=== PATIENT | female | born 1965 | race Caucasian/White ===

== ENCOUNTER → 2017-06-13 | Day surgery (SDC) | payer OTHER ==
[2017-06-12 14:06] VITALS: Ht 160 cm; Wt 65.9 kg
[~2017-06-13] VITALS: Ht 160 cm; Wt 65.9 kg
[~2017-06-13] MED LIST: AMT10 PO; ATV/1 PO; CLR10 PO; DICY20TA35 PO; DIVA250T PO; ESTR1TAB2 PO; IMD/2 PO; LIDOCAINE HCL 2% 2 ML VIAL (20MG/ML) ONE; ONDA4TAB46 PO; PRLSR20 PO; PROPOFOL IV EMULSION 10 MG/ML 20 ML VIAL IV ONE; SERT-234 PO; SODIUM CHLORIDE 0.9% 500ML 500 ML IV ONE; TRAZ100T29 PO; VENL150T33 PO; VNTHFA/IN INH; ZNTT/150 PO
--- NOTE | 2017-06-13 08:59 | Endo History and Physical ---
History & Physical Date of Service: Jun 13, 2017. Chief Complaint: ABNORMAL CT SCAN Referring Physician: DR WHITE History of Present Illness 51 yo CF who presents for colonoscopy secondary to abnormal CT imaging. Past Surgical History Hx Cardiac Surgery: No Hx Internal Defibrillator: No Hx Pacemaker: No Hx Abdominal Surgery: Yes ([place] BSO) Hx of Implantable Prosthesis: No Hx Post-Op Nausea and Vomiting: No Hx Cancer Surgery: No Hx Thoracic Surgery: No Hx Orthopedic: Yes (LEFT SHOULDER ARTHROSCOPY) Hx Urinary Tract Surgery: No Family History None Social History Smoking Status: Current Some Day Smoker Hx Substance Use: No Hx Alcohol Use: No Allergies Coded Allergies: Naproxen (Unverified Allergy, Severe, HIVES, SWELLING, 06/13/17) Current Medications Reported Home Medications Medications Dose Route/Sig Max Daily Dose Days Date Category Imodium (Loperamide HCl) 2 Mg Cap 2 Mg PO QID PRN 06/12/17 Reported Claritin (Loratadine) 10 Mg Tab 10 Mg PO DAILY PRN 06/12/17 Reported Ventolin Hfa (Albuterol) 200 Puffs/26232 Mcg Aers 2-4 Puffs INH Q6H PRN 06/12/17 Reported Trazodone (Trazodone HCl) 100 Mg Tab 100-150 Mg PO BID 06/12/17 Reported Venlafaxine Hcl Er (Venlafaxine Hcl) 150 Mg Tab 1 Tab PO BID 06/12/17 Reported Bentyl (Dicyclomine Hcl) 20 Mg Tab 20 Mg PO TID PRN 06/12/17 Reported Zantac (Ranitidine HCl) 150 Mg Tab 150 Mg PO BID 06/12/17 Reported Depakote Er (Divalproex Sodium) 250 Mg Tab 1 Tab PO TID 06/12/17 Reported Zoloft (Sertraline HCl) 100 Mg Tab 100 Mg PO BID 06/12/17 Reported Estrace (Estradiol) 1 Mg Tab 1 Mg PO QAM 06/12/17 Reported Ativan (Lorazepam) 1 Mg Tab 1 Mg PO HS 06/12/17 Reported Prilosec (Omeprazole) 20 Mg Capcr 20 Mg PO QAM 06/12/17 Reported Zofran (Ondansetron HCl) 4 Mg Tab 4 Mg PO QID PRN 06/12/17 Reported Amitriptyline HCl 10 Mg Tab 10 Mg PO HS 06/12/17 Reported Vital Signs Weight (Kilograms): 65.91 Height (Feet): 5 Height (Inches): 3 Date Time Temp Pulse Resp B/P (MAP) Pulse Ox O2 Delivery O2 Flow Rate FiO2 06/13/17 08:27 37.0 60 20 106/58 (74) 96 Room Air Physical Exam General Appearance: WD/WN, no apparent distress Respiratory/Chest: Auscultation: breath sounds normal Cardiovascular: Heart Auscultation: RRR Abdomen: Bowel Sounds: normal Inspection & Palpation: soft, non-distended, no tenderness, guarding & rebound Assessment and Plan Assessment: 51 yo CF who presents for colonoscopy secondary to abnormal CT imaging. Plan: Proceed with colonoscopy.
--- NOTE | 2017-06-13 09:25 | Discharge Instructions ---
Endoscopy Patient Instructions Date / Procedure(s) Performed Jun 13, 2017. Colonoscopy Allergy Information Coded Allergies: Naproxen (Unverified Allergy, Severe, HIVES, SWELLING, 06/13/17) Discharge Date / Findings Jun 13, 2017. Crohn's Ileitis with stricture Colon polyps Internal hemorrhoids Medication Instructions 1) Start Entocort 9mg by mouth daily for 8 weeks 2) Resume all medications today as prescribed Reported Home Medications Medications Dose Route/Sig Max Daily Dose Days Date Category Imodium (Loperamide HCl) 2 Mg Cap 2 Mg PO QID PRN 06/12/17 Reported Claritin (Loratadine) 10 Mg Tab 10 Mg PO DAILY PRN 06/12/17 Reported Ventolin Hfa (Albuterol) 200 Puffs/47490 Mcg Aers 2-4 Puffs INH Q6H PRN 06/12/17 Reported Trazodone (Trazodone HCl) 100 Mg Tab 100-150 Mg PO BID 06/12/17 Reported Venlafaxine Hcl Er (Venlafaxine Hcl) 150 Mg Tab 1 Tab PO BID 06/12/17 Reported Bentyl (Dicyclomine Hcl) 20 Mg Tab 20 Mg PO TID PRN 06/12/17 Reported Zantac (Ranitidine HCl) 150 Mg Tab 150 Mg PO BID 06/12/17 Reported Depakote Er (Divalproex Sodium) 250 Mg Tab 1 Tab PO TID 06/12/17 Reported Zoloft (Sertraline HCl) 100 Mg Tab 100 Mg PO BID 06/12/17 Reported Estrace (Estradiol) 1 Mg Tab 1 Mg PO QAM 06/12/17 Reported Ativan (Lorazepam) 1 Mg Tab 1 Mg PO HS 06/12/17 Reported Prilosec (Omeprazole) 20 Mg Capcr 20 Mg PO QAM 06/12/17 Reported Zofran (Ondansetron HCl) 4 Mg Tab 4 Mg PO QID PRN 06/12/17 Reported Amitriptyline HCl 10 Mg Tab 10 Mg PO HS 06/12/17 Reported Provider Instructions Activity Restrictions - No exercising or heavy lifting for 24 hours. - Do not drink alcohol the day of the procedure. - Do not drive a car or operate machinery until the day after the procedure. - Do not make any important decisions or sign important papers in 24 hours after the procedure. Following Day: - Return to full activity which may include returning to work/school. Diet Start your diet with liquids and light foods (jello, soup, juice, toast). Then eat your usual diet if not nauseated. Treatment For Common After Affects For mild abdominal pain, bloating, or excessive gas: - Rest - Eat lightly - Lie on right side Followup in our office for pre-testing for Remicade/Thiopurine therapy Follow-Up Information Follow-up with DR WHITE as scheduled Anesthesia Information What You Should Know You have had a procedure that required some medicine to reduce anxiety and discomfort. This treatment is called moderate sedation. After receiving the treatment, you may be sleepy, but you will be able to breathe on your own. The effects of the treatment may last for several hours. Follow these instructions along with Activity/Diet recommendations noted above: * Do NOT do anything where dizziness or clumsiness would be dangerous. * Rest quietly at home today, then you can be up and about tomorrow. * Have a responsible person stay with you the rest of today. * You may have had an I.V. today. If so, you may take the dressing off later today. Recommendations Call your doctor if: * Trouble breathing * Continuous vomiting for more than 24 hours * Temperature above 101 degrees * Severe abdominal pain or bloating * Pain not relieved by pain medicine ordered * There is increased drainage or redness from any incision * A large amount of rectal bleeding greater than 2-3 tablespoons. (If you had a polyp/s removed or have hemorrhoids, a small amount of blood - from the rectum is to be expected.) * You have any unanswered questions or concerns. IN THE EVENT OF A SERIOUS EMERGENCY, GO TO THE NEAREST EMERGENCY ROOM Your discharge instructions were prepared by provider Willam Alfonso. Patient Instructions Signature Page Izzy Cruz Patient (or Guardian) Signature/Date: I have read and understand the instructions given to me by my caregivers. Caregiver/RN/Doctor Signature/Date: The above-named patient and/or guardian has received patient instructions on this date. + Original Patient Signature Page (only) stays with chart. Please make copy for patient.
--- NOTE | 2017-06-13 09:38 | GI REPORT ---
Procedure Date: 06/13/2017 8:57 AM Procedure: Colonoscopy Indications: Abnormal CT of the GI tract Medicines: Monitored Anesthesia Care Complications: No immediate complications. Estimated Blood Loss: Estimated blood loss: none. Procedure: Pre-Anesthesia Assessment: - Prior to the procedure, a History and Physical was performed, and patient medications and allergies were reviewed. The patient's tolerance of previous anesthesia was also reviewed. The risks and benefits of the procedure and the sedation options and risks were discussed with the patient. All questions were answered, and informed consent was obtained. Prior Anticoagulants: The patient has taken no previous anticoagulant or antiplatelet agents. ASA Grade Assessment: II - A patient with mild systemic disease. After reviewing the risks and benefits, the patient was deemed in satisfactory condition to undergo the procedure. After I obtained informed consent, the scope was passed under direct vision. Throughout the procedure, the patient's blood pressure, pulse, and oxygen saturations were monitored continuously. The scope was introduced through the anus and advanced to the terminal ileum. The colonoscopy was performed without difficulty. The patient tolerated the procedure well. The quality of the bowel preparation was good. The terminal ileum, ileocecal valve, appendiceal orifice, and rectum were photographed. Findings: A localized area of mucosa in the terminal ileum was moderately ulcerated. There was a mild stricture of the Terminal ileum as it entered the colon. Biopsies were taken with a cold forceps for histology. Several random biopsies were obtained with cold forceps for histology in the entire colon. Three sessile polyps were found in the sigmoid colon and in the ascending colon. The polyps were 3 to 6 mm in size. These polyps were removed with a cold snare. Resection and retrieval were complete. Non-bleeding internal hemorrhoids were found during retroflexion. The hemorrhoids were small. Impression: - Ulcerated mucosa in the terminal ileum. Biopsied. - Three 3 to 6 mm polyps in the sigmoid colon and in the ascending colon, removed with a cold snare. Resected and retrieved. - Non-bleeding internal hemorrhoids. - Several random biopsies were obtained in the entire colon. Recommendation: - Resume previous diet. - Use budesonide 9 mg PO one time per day for 8 weeks. - Repeat colonoscopy for surveillance based on pathology results. - Return to GI office as previously scheduled. Willam Alfonso DO 06/13/2017 9:37:41 AM This report has been signed electronically. Note Initiated On: 06/13/2017 8:57 AM I attest to the content of the Intraoperative Record and orders documented therein, exceptions below
--- NOTE | 2017-06-13 09:53 | Anesthesiology Progress Note ---
Anesthesia Post Op Note Date & Time Jun 13, 2017 at 09:52 Vital Signs Pain Intensity: 6 Vital Signs Past 12 Hours Date Time Temp Pulse Resp B/P (MAP) Pulse Ox O2 Delivery O2 Flow Rate FiO2 06/13/17 09:41 63 20 108/60 (76) 99 Room Air 06/13/17 09:26 63 20 92/60 (71) 99 Room Air 06/13/17 08:27 37.0 60 20 106/58 (74) 96 Room Air Notes Mental Status: alert / awake / arousable, participated in evaluation Pt Amnestic to Procedure: Yes Nausea / Vomiting: adequately controlled Pain: adequately controlled Airway Patency, RR, SpO2: stable & adequate BP & HR: stable & adequate Hydration State: stable & adequate Anesthetic Complications: no major complications apparent
[2017-06-13 10:06] VITALS: BP 104/61; PULSE 68; O2SAT 99
== END | disposition home or self-care (01) ==
LOC: C.GI 07:57
PROVIDERS: ATTEND Internal Medicine
DX: K50.00 Crohn's disease of small intestine without complications (principal); D12.2 Benign neoplasm of ascending colon; D12.5 Benign neoplasm of sigmoid colon; K64.8 Other hemorrhoids; F17.200 Nicotine dependence, unspecified, uncomplicated; Z90.710 Acquired absence of both cervix and uterus; Z90.722 Acquired absence of ovaries, bilateral; Z90.79 Acquired absence of other genital organ(s)

== ENCOUNTER → 2017-06-23 | Outpatient (CLI) | payer OTHER ==
[~2017-06-23] MED LIST changes: -LIDOCAINE HCL 2% 2 ML VIAL (20MG/ML) ONE; +OPTIRAY 320 IV PRN; -PROPOFOL IV EMULSION 10 MG/ML 20 ML VIAL IV ONE; -SODIUM CHLORIDE 0.9% 500ML 500 ML IV ONE
--- NOTE | 2017-06-23 10:00 | DIAGNOSTIC IMAGING REPORT ---
CT ABD/PELVIS IV AND ORAL CONT CLINICAL HISTORY: CROHNS DISEASE; ILEAL STENOSIS COMPARISON STUDY: None. TECHNIQUE: Following the IV administration of 93 mL of Optiray-320, CT scan of the abdomen and pelvis was performed from the lung bases to the proximal femurs. Images are reviewed in the axial, sagittal, and coronal planes. IV contrast was administered without complication. A dose lowering technique was utilized adhering to the principles of ALARA. CT DOSE: 389.21 mGy.cm FINDINGS: Lower chest: The heart is normal in size and configuration, without pericardial effusion. The lung bases and pleural spaces are clear. Liver: There is a 15 mm hypodensity adjacent the falciform ligament, likely representing focal fat. The liver is otherwise unremarkable in appearance. Gallbladder: Unremarkable. Spleen: Normal in size and attenuation. Pancreas: Unremarkable. Adrenal glands: Unremarkable. Kidneys: There is symmetric renal cortical enhancement. The kidneys are normal in size without hydronephrosis. Bowel: There is subserosal fat hypertrophy within the right colon, consistent with the clinical history of inflammatory bowel disease. There is bowel wall thickening and subserosal fat hypertrophy within the distal ileum. There are dilated distal ileal loops measuring up to 5 cm. This is likely secondary to a distal ileal stricture. There is a small bowel feces sign. There is mild hypervascularity within the mesentery. No fistulae are visualized. There is no abscess. Peritoneum: There is no intraperitoneal free air or abdominal ascites. Vasculature: The abdominal aorta is normal in course and caliber. Adenopathy: There are prominent central mesenteric lymph nodes, likely reactive. Pelvic viscera: The uterus appears surgically absent Skeletal structures: No destructive osseous lesions are seen. IMPRESSION: 1. CT evidence of active Crohn's disease with submucosal fat hypertrophy, small bowel hyperenhancement and wall thickening, a suspected distal ileal stricture, and dilated distal ileal loops measuring up to 5 cm. 2. No evidence of abscess. No fistulae are visualized. 3. Mild mesenteric adenopathy likely reactive. Electronically signed by: Kev Potter M.D. 06/23/2017 9:58 AM Dictated Date/Time: 06/23/2017 9:49 AM
== END | disposition home or self-care (01) ==
LOC: C.CTS 08:21
PROVIDERS: ATTEND Registered Nurse
DX: K50.90 Crohn's disease, unspecified, without complications (principal); K56.69 Other intestinal obstruction

== ENCOUNTER 2017-07-06 20:26 | Inpatient (IN) | payer OTHER ==
[~2017-07-06] VITALS: Ht 160 cm; Wt 62.5 kg
[~2017-07-06 20:26] MED LIST changes: -OPTIRAY 320 IV PRN
[2017-07-06] MEDS ORDERED: MoRPHine SULFATE 4 MG/ML 1 ML CARP\\VIAL IV STA (21:31)
[2017-07-06] MEDS ORDERED: RANITIDINE HCL 50 MG/100 ML D5W IV STA (21:31)
[2017-07-06] MEDS ORDERED: ONDANSETRON INJ 2 MG/ML 2 ML VIAL IV STA (21:31)
[2017-07-06] MEDS ORDERED: SODIUM CHLORIDE 0.9% 1000ML 1,000 ML IV STA ×2 (21:31)
[2017-07-06] MEDS ORDERED: OPTIRAY 320 IV PRN (21:45)
[2017-07-06 21:55] LABS: BASO % 0.1 %; BASO ABS # 0.01 K/uL (0-0.2); COMPLETE YES; HEMATOCRIT 38.2 % (37-47); IG% 0.5 %; LYMPH % 19.8 %; LYMPH ABS # 2.04 K/uL (1.2-3.4); MEAN CELL VOLUME 95.3 fL (80-100); MEAN CORPUSCULAR HEMOGLOBIN 31.9 pg (25-34); MEAN CORPUSCULAR HGB CONC 33.5 g/dl (32-36); MEAN PLATELET VOLUME 10.8 fL (7.4-10.4); NEUT % 64.6 %; PLATELET COUNT 309 K/uL (130-400); RED BLOOD COUNT 4.01 M/uL (4.2-5.4)
[2017-07-06 22:07] LABS: BUN/CREATININE RATIO 27.9 (10-20); C-REACTIVE PROTEIN 15.5 mg/dl (0-0.29); CALCIUM 9.4 mg/dl (8.5-10.1); CREATININE 0.53 mg/dl (0.60-1.20); MAGNESIUM 1.5 mg/dl (1.8-2.4); POTASSIUM 3.6 mmol/L (3.5-5.1)
[2017-07-06 22:08] LABS: URINE APPEARANCE CLOUDY (CLEAR); URINE BILIRUBIN NEG (NEG); URINE COLOR DK YELLOW; URINE EPITHELIAL CELL AUTO >30 /lpf (0-5); URINE NITRITE NEG (NEG); URINE PH 5.5 (4.5-7.5); URINE SPECIFIC GRAVITY 1.035 (1.000-1.030); UROBILINOGEN NEG (NEG); ZZUR CULT IF INDIC CLEAN CATCH YES
[2017-07-06 22:10] LABS: ALB/GLOB RATIO 0.7 (0.9-2)
[2017-07-06 22:11] LABS: MANUAL MICROSCOPIC REQUIRED? NO; REVIEW REQ? YES
[2017-07-06] MEDS ORDERED: MAGNESIUM SULFATE 1GM / D5W 1 GM BAG IV STA (22:11)
[2017-07-06 22:32] LABS: URINE MUCUS PRESENT (NONE PRSENT)
[2017-07-06] MEDS ORDERED: HYDROmorphone INJ 1 MG/ML SYR IV STA (22:42)
--- NOTE | 2017-07-06 23:28 | DIAGNOSTIC IMAGING REPORT ---
ABD/PELVIS IV CONTRAST ONLY CLINICAL HISTORY: 51 years-old Female presenting with severe abd pain, crohns. TECHNIQUE: Multidetector CT of the abdomen and pelvis was performed after the administration of intravenous contrast. IV contrast: 91 mL of Optiray 320. A dose lowering technique was used consistent with the principles of ALARA (as low as reasonably achievable). COMPARISON: 06/23/2017. CT DOSE (mGy.cm): The estimated cumulative dose is 279.29 mGy.cm. 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 Lung bases: Lung bases clear. No pericardial or pleural effusion. Liver: Normal morphology. Perfusional variation noted along the fissure for the ligamentum teres. No liver lesion. Patent hepatic vasculature. Biliary: No intrahepatic or extrahepatic biliary ductal dilatation. Normal gallbladder. Pancreas: Normal. Mild pancreatic ductal prominence. Spleen: Normal. Adrenal glands: Normal. Kidneys and ureters: Normal. No hydronephrosis. Bladder: Incompletely evaluated secondary to underdistention. Pelvic organs: Uterus surgically absent. Bowel: Colonic wall thickening with intramural fat deposition in the right colon. Wall thickening and intramural fat deposition also noted in the terminal ileum. Wall thickening extends along the terminal ileum proximally to the distal ileum for an extended segment (at least 30 cm) the distribution is unchanged from prior. The degree of wall thickening has increased, which now measures up to 7 mm. The affected small bowel demonstrates relative luminal dilatation in comparison to the narrow lumen terminal ileum. Mucosal and serosal hyperenhancement evident with prominence of the basal right and minimal mesenteric infiltration. Prominent enhancing mesenteric lymph nodes. More proximal small bowel is unaffected. No evidence of perienteric sinus track or phlegmonous change. No bowel obstruction or distention. Peritoneal cavity: No free fluid or intraperitoneal gas. Vasculature: Atherosclerosis of the normal caliber abdominal aorta. IVC patent. Lymph nodes: Prominent mesenteric lymph nodes slightly increased in size from prior. Abdominal wall: Normal. Musculoskeletal: Normal. IMPRESSION: 1. Slight interval increase in bowel wall thickening of the affected long segment of distal ileum with associated increased as enteric infiltration and slight increased size of mesenteric lymph nodes. This is concerning for worsening of active disease. Relative dilatation of the affected bowel in comparison to the terminal ileum suggests an element of stricturing disease. Chronic inflammatory changes of the terminal ileum and right colon. No evidence of penetrating disease. Electronically signed by: Rosas Steven M.D. 07/06/2017 11:27 PM Dictated Date/Time: 07/06/2017 11:16 PM
[2017-07-07] MEDS ORDERED: HYDROmorphone INJ 1 MG/ML SYR IV STA (00:11)
[2017-07-07] MEDS ORDERED: METHYLPREDNISOLONE IV 20 MG in SYRINGE 0 ML IV STA (00:11)
--- NOTE | 2017-07-07 00:40 | History and Physical ---
History & Physical Date & Time of Service: Jul 07, 2017 at 00:36 Chief Complaint: Severe Adb Pain, Nausea, Burning Sensation Primary Care Physician: Kyung Parker M.D. History of Present Illness Source: patient This is 51 yo F with medial hx of Crohn's colitis , depression , anxiety disorder presents with complain of worsening of abdominal pain/cramps , ongoing diarrhea , nausea /vomiting CT abdomen /pelvis shows active inflammation at terminal ileum pt is afebrile , with normal white count , no evidence of sepsis given IV Solu Medrol in Ed will be admitted to Medical floor for IV steroid for Crohn's colitis flare and ongoing supportive care for GI symptoms with bowel rest , IVF and pain meds GI team consulted -pt is known to Dr Alfonso Social History Smoking Status: Never Smoker Housing status: lives with family Allergies Coded Allergies: Naproxen (Verified Allergy, Severe, HIVES, SWELLING, 06/13/17) Home Medications Scheduled Amitriptyline HCl (Amitriptyline HCl), 10 MG PO HS Divalproex Sodium (Depakote Er), 250 MG PO TID Estradiol (Estrace), 1 MG PO QAM Lorazepam (Ativan), 1 MG PO HS Omeprazole (Prilosec), 20 MG PO QAM Ranitidine (Zantac), 150 MG PO BID Sertraline (Zoloft), 100 MG PO BID Trazodone Hcl (Trazodone), 100-150 MG PO BID Venlafaxine Hcl (Venlafaxine Hcl Er), 150 MG PO BID Scheduled PRN Albuterol Hfa (Ventolin Hfa), 2-4 PUFFS INH Q6H PRN for Shortness of Breath Loperamide Hcl (Imodium), 2 MG PO QID PRN for Diarrhea Loratadine (Claritin), 10 MG PO DAILY PRN for Allergy Symptoms Review of Systems Constitutional: + chills, + weakness, + fatigue Abdomen: + pain, + nausea, + vomiting, + diarrhea Musculoskeletal: + joint pain Neurologic: + weakness, + numbness/tingling Psychiatric: + depression symptoms, + anxiety, + insomnia Endocrine: + fatigue Physical Exam Vital Signs Date Time Temp Pulse Resp B/P (MAP) Pulse Ox O2 Delivery O2 Flow Rate FiO2 07/06/17 22:46 94 125/78 100 Room Air 07/06/17 20:28 36.6 101 18 156/112 94 Room Air General Appearance: no apparent distress Head: normocephalic, atraumatic Eyes: normal inspection, PERRL, EOMI, sclerae normal Neck: supple, no adenopathy, thyroid normal, no JVD, no carotid bruits, trachea midline Respiratory/Chest: chest non-tender, lungs clear, normal breath sounds, no respiratory distress, no accessory muscle use Cardiovascular: regular rate, rhythm, no edema, no gallop, no JVD, no murmur, normal peripheral pulses Abdomen/GI: soft, + tenderness (in rt lower quadrant , no rebound , no gurading ) Extremities/Musculoskelatal: normal inspection, no calf tenderness, normal capillary refill, no pedal edema, normal range of motion Neurologic/Psych: no motor/sensory deficits, alert, normal mood/affect, oriented x 3 Diagnostics Laboratory Results Results Past 24 Hours Test 07/06/17 21:30 07/06/17 21:38 07/06/17 22:00 Range/Units White Blood Count 10.30 4.8-10.8 K/uL Red Blood Count 4.01 4.2-5.4 M/uL Hemoglobin 12.8 12.0-16.0 g/dL Hematocrit 38.2 37-47 % Mean Corpuscular Volume 95.3 80-100 fL Mean Corpuscular Hemoglobin 31.9 25-34 pg Mean Corpuscular Hemoglobin Concent 33.5 32-36 g/dl Platelet Count 309 130-400 K/uL Mean Platelet Volume 10.8 7.4-10.4 fL Neutrophils (%) (Auto) 64.6 % Lymphocytes (%) (Auto) 19.8 % Monocytes (%) (Auto) 15.0 % Eosinophils (%) (Auto) 0.0 % Basophils (%) (Auto) 0.1 % Neutrophils # (Auto) 6.65 1.4-6.5 K/uL Lymphocytes # (Auto) 2.04 1.2-3.4 K/uL Monocytes # (Auto) 1.55 0.11-0.59 K/uL Eosinophils # (Auto) 0.00 0-0.5 K/uL Basophils # (Auto) 0.01 0-0.2 K/uL RDW Standard Deviation 49.3 36.4-46.3 fL RDW Coefficient of Variation 14.1 11.5-14.5 % Immature Granulocyte % (Auto) 0.5 % Immature Granulocyte # (Auto) 0.05 0.00-0.02 K/uL Erythrocyte Sedimentation Rate 37 0-21 mm/hr Sodium Level 134 136-145 mmol/L Potassium Level 3.6 3.5-5.1 mmol/L Chloride Level 101 98-107 mmol/L Carbon Dioxide Level 27 21-32 mmol/L Anion Gap 6.0 3-11 mmol/L Blood Urea Nitrogen 15 7-18 mg/dl Creatinine 0.53 0.60-1.20 mg/dl Est Creatinine Clear Calc Drug Dose 102.7 ml/min Estimated GFR () 126.5 Estimated GFR (Non- 109.2 BUN/Creatinine Ratio 27.9 10-20 Random Glucose 90 70-99 mg/dl Calcium Level 9.4 8.5-10.1 mg/dl Magnesium Level 1.5 1.8-2.4 mg/dl Total Bilirubin 0.3 0.2-1 mg/dl Aspartate Amino Transf (AST/SGOT) 11 15-37 U/L Alanine Aminotransferase (ALT/SGPT) 12 12-78 U/L Alkaline Phosphatase 122 45-117 U/L C-Reactive Protein 15.50 0-0.29 mg/dl Total Protein 6.8 6.4-8.2 gm/dl Albumin 2.8 3.4-5.0 gm/dl Globulin 4.0 2.5-4.0 gm/dl Albumin/Globulin Ratio 0.7 0.9-2 Lipase 48 73-393 U/L Bedside Lactic Acid Venous 1.13 0.90-1.70 mmol/L Urine Color DK YELLOW Urine Appearance CLOUDY CLEAR Urine pH 5.5 4.5-7.5 Urine Specific [place] 1.035 1.000-1.030 Urine Protein NEG NEG Urine Glucose (UA) NEG NEG Urine Ketones 1+ NEG Urine Occult Blood 1+ NEG Urine Nitrite NEG NEG Urine Bilirubin NEG NEG Urine Urobilinogen NEG NEG Urine Leukocyte Esterase NEG NEG Urine WBC (Auto) 1-5 0-5 /hpf Urine RBC (Auto) 0-4 0-4 /hpf Urine Hyaline Casts (Auto) 1-5 0-5 /lpf Urine Epithelial Cells (Auto) >30 0-5 /lpf Urine Bacteria (Auto) 1+ NEG Urine Crystals CALCIUM OXALATE NONE PRSENT Urine Pathogenic Casts 0 /lpf Urine Mucus PRESENT NONE PRSENT Microbiology Results 07/06/17 Urine Culture, Received Pending Diagnostic Radiology CT ABDOMEN /PELVIS: IMPRESSION: 1. Slight interval increase in bowel wall thickening of the affected long segment of distal ileum with associated increased as enteric infiltration and slight increased size of mesenteric lymph nodes. This is concerning for worsening of active disease. Relative dilatation of the affected bowel in comparison to the terminal ileum suggests an element of stricturing disease. Chronic inflammatory changes of the terminal ileum and right colon. No evidence of penetrating disease. EKG Normal sinus rhythm Nonspecific ST abnormality Abnormal ECG No previous ECGs available Impression Assessment and Plan CROHN'S COLITIS FLARE : known hx of Crohn's disease follows with GI Dr Alfonso Recent colonoscopy on 06/13/[address] Alfonso showed localized area of moderately ulcerated mucosa in terminal ileum with mild stricture of terminal ileum as it enters the colon Pathology of specimen showed : flattening of villi and altered architecture /minimal to mild acute inflammation noted, no granulomatous inflammation noted -findings consistent with Crohn's disease pt was recommended to take Budesonide 9 gm daily for 8 weeks pt is a poor historian with questionable compliance to medication continued to have ongoing abdominal pain and loose diarrhea had CT abdomen /pelvis done a week back on 06/23/17 shows active Crohn's disease with submucosal fat hypertrophy, suspected distal ileal stricture past 2 days her abdominal pain has been severe , unable to keep any food down due to nausea and vomiting had ongoing diarrhea /no blood in stool CT abdomen /pelvis shows progression of her Crohn's colitis pt will be admitted to Medical floor , no evidence of infection or sepsis -no indication for Abx therapy started on IV Solu -Medrol bowel rest -IVF , cont pain control GI eval requested HYPONATREMIA /LOW MG : Due to GI loss ordered for IVF with NSS , mg replacement ordered follow lytes DEPRESSION : cont Elavil, Zoloft EKG Ordered as pt is on number antidepressants /antipsychotic meds which can cause prolong Qtc on Depakote for mood disorder ? ordered to check level CHRONIC INSOMNIA : Cont Trazodone TOBACCO ABUSE DISORDER : used smoke 1-2 pk a day , quit on March since diagnosis of IBD FULL CODE DVT PROPHYLAXIS : scd and teds ambulate pharmacological anticoagulation avoided due to active colitis /risk of GI bleed DISPOSITION : expected to be discharged home when medically stable Medicine follow up with Dr Piero Parker GI follow up with Dr Willam Alfonso Level of Care Med/Surg Resuscitation Status FULL RESUSCITATION VTE Prophylaxis Given or contraindicated: Hannah Miranda, SCD's Additional Copies To Kyung Parker M.D., Willam Elias, Richard.O.
[2017-07-07 01:30] VITALS: BP 94/65; PULSE 75; TEMP 36.6; O2SAT 96; Ht 160 cm; Wt 62.5 kg
[2017-07-07] MEDS ORDERED: LORATADINE 10 MG TAB PO PRN (01:30)
[2017-07-07] MEDS ORDERED: LOPERAMIDE HCL 2 MG CAP PO PRN (01:30)
[2017-07-07] MEDS ORDERED: HYDROmorphone INJ 1 MG/ML SYR IV PRN (01:30)
[2017-07-07] MEDS ORDERED: HYDROmorphone INJ 2 MG/ML SYR/VIAL IV PRN (01:30)
[2017-07-07] MEDS ORDERED: ALBUTEROL HFA 8 GM INHALER INH PRN (01:30)
[2017-07-07] MEDS ORDERED: MAGNESIUM SULFATE 1GM / D5W 1 GM in PREMIXED IN D5W 100 ML IV STA (01:52)
[2017-07-07] MEDS: SODIUM CHLORIDE 0.9% 1000ML 1,000 ML IV SCH ×3 (02:12→20:38)
--- NOTE | 2017-07-07 05:54 | EMERGENCY ROOM VISIT NOTE ---
History First contact with patient: 21:20 Chief Complaint: ABDOMINAL PAIN Stated Complaint: ABDOMINAL PAIN, CROHNS COLITIS Nursing Triage Summary: Pt c/o severe right sided abdominal pain. Pt states it is a crohns flare up. Goes into back and side. Pt states it has been going on for four months. Severe pain starting yesterday, c/o N/V/D. Hasn't been able to eat/drink. History of Present Illness The patient is a 51 year old female who presents to the Emergency Room with complaints of severe increasing lower abdominal pain for the past 2 months that got much worse over the past few days. Patient complains of nausea and vomiting and occasional diarrhea. Patient has Crohn's. This is diagnosed 4 months ago. She follows with Dr. Alfonso. Patient discussed up as severe, 9 out of 10 throughout the lower abdomen. Nothing makes it better or worse. Patient denies fever, chills, cough, congestion, chest pain, dyspnea, back pain, urinary symptoms. She is on low-dose prednisone. Review of Systems See HPI for pertinent positives & negatives. A total of 10 systems reviewed and were otherwise negative. Past Medical/Surgical History Medical Problems: (1) Abdominal pain (2) Crohn's colitis Social History Smoking Status: Never Smoker Smokeless Tobacco Use: No Drug Use: none Current/Historical Medications Scheduled Amitriptyline HCl (Amitriptyline HCl), 10 MG PO HS Divalproex Sodium (Depakote Er), 250 MG PO TID Estradiol (Estrace), 1 MG PO QAM Lorazepam (Ativan), 1 MG PO HS Omeprazole (Prilosec), 20 MG PO QAM Ranitidine (Zantac), 150 MG PO BID Sertraline (Zoloft), 100 MG PO BID Trazodone Hcl (Trazodone), 100-150 MG PO BID Venlafaxine Hcl (Venlafaxine Hcl Er), 150 MG PO BID Scheduled PRN Albuterol Hfa (Ventolin Hfa), 2-4 PUFFS INH Q6H PRN for Shortness of Breath Loperamide Hcl (Imodium), 2 MG PO QID PRN for Diarrhea Loratadine (Claritin), 10 MG PO DAILY PRN for Allergy Symptoms Allergies Coded Allergies: Naproxen (Verified Allergy, Severe, HIVES, SWELLING, 06/13/17) Physical Exam Vital Signs Date Time Temp Pulse Resp B/P (MAP) Pulse Ox O2 Delivery O2 Flow Rate FiO2 07/06/17 22:46 94 125/78 100 Room Air 07/06/17 20:28 36.6 101 18 156/112 94 Room Air Pain Rating (0-10): 0 Physical Exam VITALS: Vitals are noted on the nurse's note and reviewed by myself. Vital signs stable. GENERAL: White female, in no acute distress, nondiaphoretic, well-developed well -nourished. SKIN: The skin was without rashes, erythema, edema, or bruising. There is no tenting of the skin. Capillary reflex less than 2 seconds. HEAD: Normocephalic atraumatic. EARS: External auditory canals clear, tympanic membranes pearly nicholas without erythema or effusion bilaterally. EYES: Pupils equal round and reactive to light and accommodation. Conjunctivae without injection, sclerae without icterus. Extraocular movements intact. NOSE: Patent, turbinates without inflammation or discharge. MOUTH: Mucous membranes mildly dry. Pharynx without erythema or exudate. Uvula midline. Airway patent. Tongue does not deviate. NECK: Supple without nuchal rigidity. No lymphadenopathy. No thyromegaly. Cervical spine is nontender. No JVD. HEART: Regular rate and rhythm LUNGS: Clear to auscultation bilaterally without wheezes, rales or rhonchi. No dullness to percussion. No retractions or accessory muscle use. ABDOMEN: Positive bowel sounds x 4. Normal tympanic percussion. Soft, tender to palpation lower abdomen, no CVA tenderness, without masses or organomegaly. Block sign negative. No guarding or rebound tenderness. MUSCULOSKELETAL: No muscle atrophy, erythema, or edema noted. NEURO: Patient was alert and oriented to person place and time. Normal sensation to light and sharp touch. No focal neurological deficits. Medical Decision & Procedures Laboratory Results Test 07/06/17 21:30 07/06/17 21:38 07/06/17 22:00 RDW Standard Deviation 49.3 fL (36.4-46.3) RDW Coefficient of Variation 14.1 % (11.5-14.5) White Blood Count 10.30 K/uL (4.8-10.8) Red Blood Count 4.01 M/uL (4.2-5.4) Hemoglobin 12.8 g/dL (12.0-16.0) Hematocrit 38.2 % (37-47) Mean Corpuscular Volume 95.3 fL (80-100) Mean Corpuscular Hemoglobin 31.9 pg (25-34) Mean Corpuscular Hemoglobin Concent 33.5 g/dl (32-36) Platelet Count 309 K/uL (130-400) Mean Platelet Volume 10.8 fL (7.4-10.4) Neutrophils (%) (Auto) 64.6 % Lymphocytes (%) (Auto) 19.8 % Monocytes (%) (Auto) 15.0 % Eosinophils (%) (Auto) 0.0 % Basophils (%) (Auto) 0.1 % Neutrophils # (Auto) 6.65 K/uL (1.4-6.5) Lymphocytes # (Auto) 2.04 K/uL (1.2-3.4) Monocytes # (Auto) 1.55 K/uL (0.11-0.59) Eosinophils # (Auto) 0.00 K/uL (0-0.5) Basophils # (Auto) 0.01 K/uL (0-0.2) Immature Granulocyte % (Auto) 0.5 % Immature Granulocyte # (Auto) 0.05 K/uL (0.00-0.02) Erythrocyte Sedimentation Rate 37 mm/hr (0-21) Est Creatinine Clear Calc Drug Dose 102.7 ml/min Total Bilirubin 0.3 mg/dl (0.2-1) Aspartate Amino Transf (AST/SGOT) 11 U/L (15-37) Alanine Aminotransferase (ALT/SGPT) 12 U/L (12-78) Alkaline Phosphatase 122 U/L (45-117) C-Reactive Protein 15.50 mg/dl (0-0.29) Total Protein 6.8 gm/dl (6.4-8.2) Albumin 2.8 gm/dl (3.4-5.0) Globulin 4.0 gm/dl (2.5-4.0) Albumin/Globulin Ratio 0.7 (0.9-2) Lipase 48 U/L (73-393) Bedside Lactic Acid Venous 1.13 mmol/L (0.90-1.70) Urine Color DK YELLOW Urine Appearance CLOUDY (CLEAR) Urine pH 5.5 (4.5-7.5) Urine Specific [place] 1.035 (1.000-1.030) Urine Protein NEG (NEG) Urine Glucose (UA) NEG (NEG) Urine Ketones 1+ (NEG) Urine Occult Blood 1+ (NEG) Urine Nitrite NEG (NEG) Urine Bilirubin NEG (NEG) Urine Urobilinogen NEG (NEG) Urine Leukocyte Esterase NEG (NEG) Urine WBC (Auto) 1-5 /hpf (0-5) Urine RBC (Auto) 0-4 /hpf (0-4) Urine Hyaline Casts (Auto) 1-5 /lpf (0-5) Urine Epithelial Cells (Auto) >30 /lpf (0-5) Urine Bacteria (Auto) 1+ (NEG) Urine Crystals CALCIUM OXALATE (NONE Urine Pathogenic Casts /lpf (0) Urine Mucus PRESENT (NONE PRSENT) Medications Administered Medications (Trade) Dose Ordered Sig/Ida Route Start Time Stop Time Status Last Admin Dose Admin Sodium Chloride 1,000 ml @ 999 mls/hr Q1H1M STAT IV 07/06/17 21:31 07/06/17 22:31 DC 07/06/17 21:55 999 MLS/HR Sodium Chloride 1,000 ml @ 125 mls/hr Q8H STAT IV 07/06/17 21:31 07/07/17 01:52 DC 07/06/17 21:55 125 MLS/HR Ondansetron HCl (Zofran Inj) 4 mg NOW STAT IV 07/06/17 21:31 07/06/17 21:33 DC 07/06/17 21:54 4 MG Ranitidine HCl (zANTac IV) 50 mg NOW STAT IV 07/06/17 21:31 07/06/17 21:33 DC 07/06/17 21:54 50 MG Morphine Sulfate (MoRPHine SULFATE INJ) 4 mg NOW STAT IV 07/06/17 21:31 07/06/17 21:33 DC 07/06/17 21:54 4 MG Magnesium Sulfate (Magnesium Sulfate) 2 gm NOW STAT IV 07/06/17 22:11 07/06/17 22:12 DC 07/06/17 22:49 2 GM Hydromorphone HCl (Dilaudid Inj) 1 mg NOW STAT IV 07/06/17 22:42 07/06/17 22:43 DC 07/06/17 22:47 1 MG Hydromorphone HCl (Dilaudid Inj) 1 mg NOW STAT IV 07/07/17 00:11 07/07/17 00:13 DC 07/07/17 00:55 1 MG Methylprednisolone Sodium Succinate 20 mg/Syringe 0.32 ml @ 1.5 mls/min NOW STAT IV 07/07/17 00:11 07/07/17 00:13 DC 07/07/17 01:06 1.5 MLS/MIN ED Course Prior records/ancillary studies reviewed. Triage Nursing notes reviewed. The patient's history was concerning for abdominal pain. Differential diagnosis: Etiologies such as Crohn's exacerbation, appendicitis, diverticulitis, PUD, biliary pathology, UTI, pancreatitis, obstruction, mesenteric ischemia, aortic pathology, infections, inflammatory bowel disease, renal colic, as well as others were entertained. Physical examination findings: As above. ER treatment provided: Morphine, Dilaudid, Zofran, Solu Medrol, IV fluids On reassessment the patient felt better. Diagnostics interpreted by me: The labs revealed no leukocytosis. Elevated inflammatory markers. Low magnesium Imaging studies: CT scan concerning for worsening Crohn's disease per radiology Consultation: A consultation was placed with the GI, Dr. Negrete. The case was discussed and diagnostics were reviewed. He recommends steroids and medical admission I consulted medicine and Dr. Fernandes will evaluate the patient for possible admission. Exam and history seem consistent with Crohn's exacerbation. Patient was given multiple rounds of pain meds and still in discomfort. She will be evaluated by medicine. She was started on steroids.. By the evaluation outlined above emergent etiologies such as appendicitis, diverticulitis, PUD, biliary pathology, UTI, pancreatitis, obstruction, mesenteric ischemia, aortic pathology, renal colic, as well as others were deemed relatively unlikely. The pt informed about the findings as listed above. All questions were answered and pleased with the treatment. Case reviewed by attending Medical Decision as above Impression Primary Impression: Exacerbation of Crohn's disease Departure Information Dispostion Being Evaluated By Hospitalist Condition GOOD Referrals Kyung Parker M.D. (PCP) Patient Instructions My [facility] Problem Qualifiers Primary Impression: Exacerbation of Crohn's disease Digestive disease complication type: without complication Qualified Codes: K50.90 - Crohn's disease, unspecified, without complications
[2017-07-07 07:19] LABS: CALCIUM 8.2 mg/dl (8.5-10.1); CREATININE 0.4 mg/dl (0.60-1.20); MAGNESIUM 2.4 mg/dl (1.8-2.4); POTASSIUM 3.9 mmol/L (3.5-5.1)
[2017-07-07 07:28] VITALS: BP 133/67; PULSE 76; TEMP 36.9; O2SAT 97
[2017-07-07] MEDS: PANTOprazole SOD 40 MG TAB PO SCH (07:41)
[2017-07-07] MEDS: DIVALPROEX 250 MG EXTENDED REL TAB PO SCH ×3 (07:41→20:37)
[2017-07-07 07:42] LABS: HEMATOCRIT 35.6 % (37-47); MEAN CELL VOLUME 94.2 fL (80-100); MEAN PLATELET VOLUME 11.2 fL (7.4-10.4); PLATELET COUNT 193 K/uL (130-400); RED BLOOD COUNT 3.78 M/uL (4.2-5.4); WHITE BLOOD COUNT 8.18 K/uL (4.8-10.8)
[2017-07-07] MEDS: RANITIDINE HCL 150 MG TAB PO SCH ×2 (07:42→20:37)
[2017-07-07] MEDS: VENLAFAXINE HCL XR 150 MG CAPXR PO SCH ×2 (07:42→20:37)
[2017-07-07] MEDS: TRAZODONE HCL 100 MG TAB PO SCH ×2 (07:42→20:37)
[2017-07-07] MEDS: SERTRALINE HCL 100 MG TAB PO SCH ×2 (07:42→20:37)
[2017-07-07] MEDS ORDERED: METHYLPREDNISOLONE IV 40 MG in SYRINGE 0 ML IV SCH (08:00)
[2017-07-07] MEDS ORDERED: POLYETHYLENE (MIRALAX) 17 GM PACK PO ONE (09:23)
--- NOTE | 2017-07-07 10:16 | Gastrointestinal Consultation ---
Gastrointestinal Consultation Date of Consultation: Jul 07, 2017 Attending Physician: Tyree Brooks Consulting Physician: Evelyn Corey Reason for Consultation: Crohn's disease History of Present Illness Patient is a 51 year old female w newly diagnosed Crohn's disease who presented to ED w c/o R sided abd pain. Hx of Crohn's diagnosed via colonoscopy done by Dr. Alfonso on 06/13/17 which showed ulceration and stricturing around terminal ileum area, TA and hyperplastic polyps, bx consistent w Crohn's ileitis. She was started on Entecort 9mg daily. Had been also using Tylenol and Dicyclomine for abd pain symptoms which pt reports not much relief. In last few days she has had issues w n/v, + chronic constipation, last BM 2-3 days ago. No signs of rectal bleeding. She denies any sick contact, fever, chills. Pt's daughter also has Crohn's disease currently on Remicade. Pt's labs didn't show any signs of leukocytosis, anemia. Kidney and liver function grossly normal. CRP up at 15. CT abd/pelvis: 1. Slight interval increase in bowel wall thickening of the affected long segment of distal ileum with associated increased as enteric infiltration and slight increased size of mesenteric lymph nodes. This is concerning for worsening of active disease. Relative dilatation of the affected bowel in comparison to the terminal ileum suggests an element of stricturing disease. Chronic inflammatory changes of the terminal ileum and right colon. No evidence of penetrating disease. In my discussion w America LU from [facility] who manages pt in outpt setting , there's already plans for pt to start Remicade w insurance prior auth pending. She also had been referred to [facility] for her stricturing disease. Past Medical/Surgical History Medical Problems: (1) Exacerbation of Crohn's disease Status: Acute Past Medical History: Depression/Anxiety Crohn's GERD Past Surgical History: Hysterectomy Family History Dght: Crohn's Social History Smoking Status: Never Smoker Alcohol Use: none Drug Use: none Allergies Coded Allergies: Naproxen (Verified Allergy, Severe, HIVES, SWELLING, 06/13/17) Current Medications Home Meds and Scripts Medications Dose Route/Sig Max Daily Dose Days Date Category Imodium (Loperamide HCl) 2 Mg Cap 2 Mg PO QID PRN 06/12/17 Reported Claritin (Loratadine) 10 Mg Tab 10 Mg PO DAILY PRN 06/12/17 Reported Ventolin Hfa (Albuterol) 200 Puffs/73818 Mcg Aers 2-4 Puffs INH Q6H PRN 06/12/17 Reported Trazodone (Trazodone HCl) 100 Mg Tab 100-150 Mg PO BID 06/12/17 Reported Venlafaxine Hcl Er (Venlafaxine Hcl) 150 Mg Tab 150 Mg PO BID 06/12/17 Reported Zantac (Ranitidine HCl) 150 Mg Tab 150 Mg PO BID 06/12/17 Reported Depakote Er (Divalproex Sodium) 250 Mg Tab 250 Mg PO TID 06/12/17 Reported Zoloft (Sertraline HCl) 100 Mg Tab 100 Mg PO BID 06/12/17 Reported Estrace (Estradiol) 1 Mg Tab 1 Mg PO QAM 06/12/17 Reported Ativan (Lorazepam) 1 Mg Tab 1 Mg PO HS 06/12/17 Reported Prilosec (Omeprazole) 20 Mg Capcr 20 Mg PO QAM 06/12/17 Reported Amitriptyline HCl 10 Mg Tab 10 Mg PO HS 06/12/17 Reported Review of Systems Constitutional: No fever, No chills Respiratory: No cough, No shortness of breath Cardiac: No chest pain Abdomen: + see HPI, + pain, + nausea, + vomiting, + constipation, No GI bleeding Skin: + rash (R sided abd area) Physical Exam Date Time Temp Pulse Resp B/P (MAP) Pulse Ox O2 Delivery O2 Flow Rate FiO2 07/07/17 08:00 Room Air 07/07/17 07:28 36.9 76 20 133/67 (89) 97 Room Air 07/07/17 01:36 83 16 100/66 95 07/07/17 01:30 36.6 75 16 94/65 96 Room Air 07/07/17 01:30 36.6 75 16 94/65 (75) 96 Room Air 07/07/17 00:45 83 16 106/68 97 Room Air 07/06/17 22:46 94 125/78 100 Room Air 07/06/17 20:28 36.6 101 18 156/112 94 Room Air General Appearance: WD/WN, no apparent distress, + thin Eyes: normal inspection, PERRL, EOMI Neck: supple, no JVD, trachea midline Respiratory/Chest: normal breath sounds, no respiratory distress, no accessory muscle use Cardiovascular: regular rate, rhythm, no gallop, no murmur Abdomen: normal bowel sounds, soft, + tenderness (along R abd side) Extremities: normal inspection, no pedal edema, no calf tenderness Neurologic/Psych: alert, normal mood/affect, oriented x 3 Skin: normal color, no jaundice, + rash (RLQ, RUQ abd areas) Laboratory Results Last 24 Hours Test 07/06/17 21:30 07/06/17 21:38 07/06/17 22:00 07/07/17 06:09 White Blood Count 10.30 K/uL 8.18 K/uL Red Blood Count 4.01 M/uL 3.78 M/uL Hemoglobin 12.8 g/dL 12.3 g/dL Hematocrit 38.2 % 35.6 % Mean Corpuscular Volume 95.3 fL 94.2 fL Mean Corpuscular Hemoglobin 31.9 pg 32.0 pg Mean Corpuscular Hemoglobin Concent 33.5 g/dl 34.0 g/dl Platelet Count 309 K/uL 193 K/uL Mean Platelet Volume 10.8 fL 11.2 fL Neutrophils (%) (Auto) 64.6 % Lymphocytes (%) (Auto) 19.8 % Monocytes (%) (Auto) 15.0 % Eosinophils (%) (Auto) 0.0 % Basophils (%) (Auto) 0.1 % Neutrophils # (Auto) 6.65 K/uL Lymphocytes # (Auto) 2.04 K/uL Monocytes # (Auto) 1.55 K/uL Eosinophils # (Auto) 0.00 K/uL Basophils # (Auto) 0.01 K/uL RDW Standard Deviation 49.3 fL 48.9 fL RDW Coefficient of Variation 14.1 % 14.2 % Immature Granulocyte % (Auto) 0.5 % Immature Granulocyte # (Auto) 0.05 K/uL Erythrocyte Sedimentation Rate 37 mm/hr Sodium Level 134 mmol/L 135 mmol/L Potassium Level 3.6 mmol/L 3.9 mmol/L Chloride Level 101 mmol/L 103 mmol/L Carbon Dioxide Level 27 mmol/L 24 mmol/L Anion Gap 6.0 mmol/L 8.0 mmol/L Blood Urea Nitrogen 15 mg/dl 10 mg/dl Creatinine 0.53 mg/dl 0.40 mg/dl Est Creatinine Clear Calc Drug Dose 102.7 ml/min 136.0 ml/min Estimated GFR () 126.5 138.8 Estimated GFR (Non- 109.2 119.8 BUN/Creatinine Ratio 27.9 24.0 Random Glucose 90 mg/dl 114 mg/dl Calcium Level 9.4 mg/dl 8.2 mg/dl Magnesium Level 1.5 mg/dl 2.4 mg/dl Total Bilirubin 0.3 mg/dl Aspartate Amino Transf (AST/SGOT) 11 U/L Alanine Aminotransferase (ALT/SGPT) 12 U/L Alkaline Phosphatase 122 U/L C-Reactive Protein 15.50 mg/dl Total Protein 6.8 gm/dl Albumin 2.8 gm/dl Globulin 4.0 gm/dl Albumin/Globulin Ratio 0.7 Lipase 48 U/L Bedside Lactic Acid Venous 1.13 mmol/L Urine Color DK YELLOW Urine Appearance CLOUDY Urine pH 5.5 Urine Specific [place] 1.035 Urine Protein NEG Urine Glucose (UA) NEG Urine Ketones 1+ Urine Occult Blood 1+ Urine Nitrite NEG Urine Bilirubin NEG Urine Urobilinogen NEG Urine Leukocyte Esterase NEG Urine WBC (Auto) 1-5 /hpf Urine RBC (Auto) 0-4 /hpf Urine Hyaline Casts (Auto) 1-5 /lpf Urine Epithelial Cells (Auto) >30 /lpf Urine Bacteria (Auto) 1+ Urine Crystals CALCIUM OXALATE Urine Pathogenic Casts /lpf Urine Mucus PRESENT Nucleated RBC Absolute Count (auto) 0.00 K/uL Nucleated Red Blood Cells % 0.0 % Valproic Acid (Depakene) Level 44 mcg/ml Test 07/07/17 08:23 07/07/17 09:42 Impression Patient is a 51 year old female newly diagnosed Crohn's disease, admitted for abd pain, n/v. CT abd/pelvis showed increased stricturing and wall thickening around distal ileum area, but no signs of bowel obstruction, dilation. She is an established pt w [facility] (Dr. Alfonso/[place] LU). Was started on Entecort 9mg daily, and plans for Remicade pending insurance approval. Plan - Methylprednisolone 20mg IV q8hrs, upon DC may convert to Prednisone 40mg daily x 1 week, then 30mg daily x 1 week, 20mg daily x 1 week, 10mg daily x 1 week, 5mg daily x 1 week OR other taper instructions per [facility] upon further eval in the GI clinic. - Advance diet to at most soft, low residue diet given her TI area stricture - Start Miralax 17g daily to prevent constipation. - Avoid narcotics given stricturing disease. May continue Bentyl 20mg BID prn abd pain/spasm - Obtain TB gold quant, acute hepatitis serologies check for future start of Remicade. I saw and evaluated the patient. She presented yesterday evening with worsening abdominal discomfort. She was recently diagnosed with Crohn's ileocolitis by . Her main symptom now is right-sided abdominal discomfort and constipation. Prior to admission she was on a course of budesonide and undergoing evaluation for Remicade use. The patient is also to be seen by a colorectal surgeon due to a ileal stricture. Physical examination Patient appears to be in mild distress noting worsening right sided discomfort Impression: Patient with a history of ileocolitis admitted with worsening symptoms of abdominal discomfort. Given the patient's pain I would suggest that she have daily KUB or acute abdominal series performed to evaluate for evidence of small bowel obstruction. Should the patient develop a small bowel obstruction I would suggest that an NG tube will be placed to decompress the upper GI tract. In addition if this occurs she may benefit from transfer to a center with a colorectal surgery service. Recommendations Daily KUB Continue with IV methylprednisolone C. difficile PCR if patient develops diarrhea NG tube patient develops small bowel obstruction, nausea or vomiting Consider referral to a tertiary center if the patient fails to improve.
[2017-07-07] MEDS ORDERED: DICYCLOMINE HCL 20 MG TAB PO PRN (10:30)
[2017-07-07 11:11] VITALS: BP_SYST 88; BP_SYST 91; BP_DIAS 55; BP_DIAS 57; PULSE 76; TEMP 36.5; O2SAT 96
[2017-07-07 11:45] LABS: HEPATITIS B AB NEG
[2017-07-07] MEDS ORDERED: SODIUM CHLORIDE 0.9% 500ML 500 ML IV SCH (11:45)
[2017-07-07] MEDS ORDERED: DICYCLOMINE HCL 10 MG CAP PO PRN (11:45)
[2017-07-07] MEDS ORDERED: CETIRIZINE HCL 10 MG TAB PO PRN (12:15)
[2017-07-07] MEDS: METHYLPREDNISOLONE IV 20 MG in SYRINGE 0 ML IV SCH ×2 (13:31→20:38)
[2017-07-07 15:29] VITALS: BP 113/76; PULSE 81; TEMP 36.4; O2SAT 97
[2017-07-07] MEDS: TRAMADOL HCL 50 MG TAB PO PRN ×2 (15:38→20:38)
[2017-07-07] MEDS ORDERED: OXYCODONE/ACETAMINOPHEN 5-325 TAB ONE (17:06)
--- NOTE | 2017-07-07 17:33 | DIAGNOSTIC IMAGING REPORT ---
KUB HISTORY: crohn's flare up, r/o obstruction. Acute abdominal pain COMPARISON: CT abdomen and pelvis 07/06/2017. FINDINGS: Mildly dilated air-filled loops of small bowel are again seen within the midabdomen measuring up to 3.3 cm, previously measuring up to 3.[address] No evidence of high-grade bowel obstruction. There is no organomegaly. No renal calculi. No ureteral calculi. No pneumoperitoneum or pneumatosis. No fracture. IMPRESSION: Mildly dilated air-filled loops of small bowel within the midabdomen appears slightly improved from comparison CT dated 07/06/2017, likely attributed to patient's underlying Crohn's disease. No evidence of high-grade bowel obstruction or pneumoperitoneum. Electronically signed by: Meng Alonso M.D. 07/07/2017 5:32 PM Dictated Date/Time: 07/07/2017 5:29 PM
[2017-07-07] MEDS: MoRPHine SULFATE 4 MG/ML 1 ML CARP\\VIAL IV PRN (19:01)
--- NOTE | 2017-07-07 20:15 | Progress Note ---
Medicine Progress Note Date & Time of Visit: Jul 07, 2017 at 20:12. Subjective seen sitting up in bed states she still has abdominal pain, no nausea, no BM today denies other symptoms Objective Last 8 Hrs Date Time Temp Pulse Resp B/P (MAP) Pulse Ox O2 Delivery O2 Flow Rate FiO2 07/07/17 16:00 Room Air 07/07/17 15:29 36.4 81 20 113/76 (88) 97 Room Air Physical Exam: General- oriented x 3, not in distress, speaks in sentences with no effort Head- atraumatic Eyes- EOMI, anicteric Neck- supple, no JVD Lungs- clear breath sounds bilaterally Heart- regular rhythm; no murmur, normal rate Abdomen- normal bowel sounds, soft, nontender Extremities- no pretibial edema, no calf tenderness; peripheral pulses intact Neuro- alert, oriented x 3; no gross deficits Skin- warm & dry Laboratory Results: Last 24 Hours Test 07/06/17 21:30 07/06/17 21:38 07/06/17 22:00 07/07/17 06:09 White Blood Count 10.30 K/uL 8.18 K/uL Red Blood Count 4.01 M/uL 3.78 M/uL Hemoglobin 12.8 g/dL 12.3 g/dL Hematocrit 38.2 % 35.6 % Mean Corpuscular Volume 95.3 fL 94.2 fL Mean Corpuscular Hemoglobin 31.9 pg 32.0 pg Mean Corpuscular Hemoglobin Concent 33.5 g/dl 34.0 g/dl Platelet Count 309 K/uL 193 K/uL Mean Platelet Volume 10.8 fL 11.2 fL Neutrophils (%) (Auto) 64.6 % Lymphocytes (%) (Auto) 19.8 % Monocytes (%) (Auto) 15.0 % Eosinophils (%) (Auto) 0.0 % Basophils (%) (Auto) 0.1 % Neutrophils # (Auto) 6.65 K/uL Lymphocytes # (Auto) 2.04 K/uL Monocytes # (Auto) 1.55 K/uL Eosinophils # (Auto) 0.00 K/uL Basophils # (Auto) 0.01 K/uL RDW Standard Deviation 49.3 fL 48.9 fL RDW Coefficient of Variation 14.1 % 14.2 % Immature Granulocyte % (Auto) 0.5 % Immature Granulocyte # (Auto) 0.05 K/uL Erythrocyte Sedimentation Rate 37 mm/hr Sodium Level 134 mmol/L 135 mmol/L Potassium Level 3.6 mmol/L 3.9 mmol/L Chloride Level 101 mmol/L 103 mmol/L Carbon Dioxide Level 27 mmol/L 24 mmol/L Anion Gap 6.0 mmol/L 8.0 mmol/L Blood Urea Nitrogen 15 mg/dl 10 mg/dl Creatinine 0.53 mg/dl 0.40 mg/dl Est Creatinine Clear Calc Drug Dose 102.7 ml/min 136.0 ml/min Estimated GFR () 126.5 138.8 Estimated GFR (Non- 109.2 119.8 BUN/Creatinine Ratio 27.9 24.0 Random Glucose 90 mg/dl 114 mg/dl Calcium Level 9.4 mg/dl 8.2 mg/dl Magnesium Level 1.5 mg/dl 2.4 mg/dl Total Bilirubin 0.3 mg/dl Aspartate Amino Transf (AST/SGOT) 11 U/L Alanine Aminotransferase (ALT/SGPT) 12 U/L Alkaline Phosphatase 122 U/L C-Reactive Protein 15.50 mg/dl Total Protein 6.8 gm/dl Albumin 2.8 gm/dl Globulin 4.0 gm/dl Albumin/Globulin Ratio 0.7 Lipase 48 U/L Bedside Lactic Acid Venous 1.13 mmol/L Urine Color DK YELLOW Urine Appearance CLOUDY Urine pH 5.5 Urine Specific Rice 1.035 Urine Protein NEG Urine Glucose (UA) NEG Urine Ketones 1+ Urine Occult Blood 1+ Urine Nitrite NEG Urine Bilirubin NEG Urine Urobilinogen NEG Urine Leukocyte Esterase NEG Urine WBC (Auto) 1-5 /hpf Urine RBC (Auto) 0-4 /hpf Urine Hyaline Casts (Auto) 1-5 /lpf Urine Epithelial Cells (Auto) >30 /lpf Urine Bacteria (Auto) 1+ Urine Crystals CALCIUM OXALATE Urine Pathogenic Casts /lpf Urine Mucus PRESENT Nucleated RBC Absolute Count (auto) 0.00 K/uL Nucleated Red Blood Cells % 0.0 % Valproic Acid (Depakene) Level 44 mcg/ml Test 07/07/17 08:23 07/07/17 10:04 Hepatitis C Antibody Screen NEG Hepatitis B Surface Antigen NEG Hepatitis B Surface Antibody NEG Hepatitis C Antibody NEG Date/Time Source Procedure Growth Status 07/06/17 22:00 Urine , Clean Catch Urine Culture - Preliminary NO GROWTH - LESS THAN 1,000 COLONIES/... Resulted Assessment & Plan CROHN'S COLITIS FLARE CT abdomen /pelvis shows progression of her Crohn's colitis -- continue IV solumedrol q8h IV fluids PRN analgesics GI consulted HYPONATREMIA /LOW MG : Due to GI loss ordered for IVF with NSS , Na 135, Mg normal DEPRESSION : cont Elavil, Zoloft QTc ok on Depakote for mood disorder ? ordered to check level CHRONIC INSOMNIA : Cont Trazodone TOBACCO ABUSE DISORDER : used smoke 1-2 pk a day , quit on March since diagnosis of IBD FULL CODE DVT PROPHYLAXIS : scd and teds ambulate pharmacological anticoagulation avoided due to active colitis /risk of GI bleed DISPOSITION : expected to be discharged home when medically stable Medicine follow up with Dr Piero Parker GI follow up with Dr Willam Alfonso Level of Care Med/Surg Resuscitation Status FULL RESUSCITATION VTE Prophylaxis Given or contraindicated: Hannah Stockings, SCD's Additional Copies To Kyung Parker M.D., Willam Elias, D.OIsrrael Current Inpatient Medications: Current Inpatient Medications Medications (Trade) Dose Ordered Sig/Ida Route Start Time Stop Time Status Last Admin Dose Admin Ioversol (Optiray 320) 100 ml UD PRN IV 07/06/17 21:45 07/10/17 21:44 Ondansetron HCl (Zofran Inj) 4 mg Q6H PRN IV 07/07/17 01:30 08/06/17 01:29 Albuterol (Ventolin Hfa Inhaler) 2 puffs Q6H PRN INH 07/07/17 01:30 08/06/17 01:29 Amitriptyline HCl (Elavil Tab) 10 mg HS PO 07/07/17 21:00 08/06/17 20:59 Divalproex Sodium (Depakote Extended Rel Tab) 250 mg TID PO 07/07/17 09:00 08/06/17 08:59 07/07/17 13:31 250 MG Loperamide HCl (Imodium Cap) 2 mg QID PRN PO 07/07/17 01:30 08/06/17 01:29 Loratadine (Claritin Tab) 10 mg DAILY PRN PO 07/07/17 01:30 08/06/17 01:29 Lorazepam (Ativan Tab) 1 mg HS PO 07/07/17 21:00 08/06/17 20:59 Ranitidine HCl (zANTac TAB) 150 mg BID PO 07/07/17 09:00 08/06/17 08:59 07/07/17 07:42 150 MG Sertraline HCl (Zoloft Tab) 100 mg BID PO 07/07/17 09:00 08/06/17 08:59 07/07/17 07:42 100 MG Trazodone HCl (Desyrel Tab) 100 mg BID PO 07/07/17 09:00 08/06/17 08:59 07/07/17 07:42 100 MG Venlafaxine HCl (effeXOR EXTENDED REL CAP) 150 mg BID PO 07/07/17 09:00 08/06/17 08:59 07/07/17 07:42 150 MG Pantoprazole Sodium (Protonix Tab) 40 mg QAM PO 07/07/17 09:00 08/06/17 08:59 07/07/17 07:41 40 MG Sodium Chloride 1,000 ml @ 100 mls/hr Q10H IV 07/07/17 02:00 08/06/17 01:59 07/07/17 13:09 100 MLS/HR Methylprednisolone Sodium Succinate 20 mg/Syringe 0.32 ml @ 1.5 mls/min Q8 IV 07/07/17 14:00 08/06/17 13:59 07/07/17 13:31 1.5 MLS/MIN Polyethylene (Miralax Powder Packet) 17 gm DAILY PO 07/08/17 09:00 08/07/17 08:59 Dicyclomine HCl (Bentyl Tab) 20 mg BID PRN PO 07/07/17 10:30 08/06/17 10:29 07/07/17 12:10 20 MG Cetirizine HCl (zyrTEC TAB) 10 mg DAILY PRN PO 07/07/17 12:15 08/06/17 12:14 07/07/17 13:31 10 MG Tramadol HCl (Ultram Tab) 50 mg Q4H PRN PO 07/07/17 15:15 08/06/17 15:14 07/07/17 15:38 50 MG Oxycodone/ Acetaminophen (Percocet 5-325mg Tab) 1 tab Q6H PRN PO 07/07/17 17:00 07/21/17 16:59 Morphine Sulfate (MoRPHine SULFATE INJ) 4 mg Q6H PRN IV 07/07/17 18:30 07/21/17 18:29 07/07/17 19:01 4 MG
[2017-07-07] MEDS: LORAZEPAM 1 MG TAB PO SCH (20:37)
[2017-07-07] MEDS: AMITRIPTYLINE HCL 10 MG TAB PO SCH (20:37)
[2017-07-07] MEDS: DICYCLOMINE HCL 20 MG TAB PO PRN (22:59)
[2017-07-07 23:15] VITALS: BP 114/72; PULSE 80; TEMP 36.5; O2SAT 97
[2017-07-08] VITALS: O2SAT 95
[2017-07-08] MEDS: METHYLPREDNISOLONE IV 20 MG in SYRINGE 0 ML IV SCH ×3 (05:34→21:20)
[2017-07-08] MEDS: DICYCLOMINE HCL 20 MG TAB PO PRN ×2 (05:39→18:12)
[2017-07-08] MEDS: MoRPHine SULFATE 4 MG/ML 1 ML CARP\\VIAL IV PRN (05:40)
[2017-07-08 07:55] VITALS: BP 124/85; PULSE 88; TEMP 36.5; O2SAT 98
[2017-07-08 07:55] LABS: BUN/CREATININE RATIO 14.6 (10-20); CALCIUM 8.3 mg/dl (8.5-10.1); CREATININE 0.39 mg/dl (0.60-1.20)
[2017-07-08] MEDS: ONDANSETRON INJ 2 MG/ML 2 ML VIAL IV PRN ×2 (08:09→19:18)
[2017-07-08] MEDS: SODIUM CHLORIDE 0.9% 1000ML 1,000 ML IV SCH ×2 (08:09→18:09)
[2017-07-08] MEDS: TRAMADOL HCL 50 MG TAB PO PRN ×3 (08:10→18:09)
[2017-07-08] MEDS: VENLAFAXINE HCL XR 150 MG CAPXR PO SCH ×2 (08:11→20:32)
[2017-07-08] MEDS: RANITIDINE HCL 150 MG TAB PO SCH ×2 (08:11→20:32)
[2017-07-08] MEDS: TRAZODONE HCL 100 MG TAB PO SCH ×2 (08:11→20:32)
[2017-07-08] MEDS: PANTOprazole SOD 40 MG TAB PO SCH (08:11)
[2017-07-08] MEDS: DIVALPROEX 250 MG EXTENDED REL TAB PO SCH ×3 (08:11→20:31)
[2017-07-08] MEDS: SERTRALINE HCL 100 MG TAB PO SCH ×2 (08:11→20:32)
[2017-07-08] MEDS: POLYETHYLENE (MIRALAX) 17 GM PACK PO SCH (08:12)
[2017-07-08 11:51] VITALS: BP 121/80; PULSE 86; TEMP 36.5; O2SAT 96
[2017-07-08 15:11] VITALS: BP 116/80; PULSE 70; TEMP 36.6; O2SAT 97
--- NOTE | 2017-07-08 15:47 | Progress Note ---
Progress Note Date of Service Jul 08, 2017. Progress Note Pt with continued pain, although improved from admission. No abd distention. No nausea, manuel PO in small amts. Passing large amounts of gas. Date Time Temp Pulse Resp B/P (MAP) Pulse Ox O2 Delivery O2 Flow Rate FiO2 07/08/17 15:11 36.6 70 18 116/80 (92) 97 Room Air 07/08/17 11:51 36.5 86 18 121/80 (94) 96 Room Air 07/08/17 08:00 Room Air 07/08/17 07:55 36.5 88 16 124/85 (98) 98 07/08/17 00:00 95 Room Air 07/07/17 23:15 36.5 80 20 114/72 (86) 97 Room Air 07/07/17 16:00 Room Air Appears comfortable. Abd is non distended, with increased BS. Tender to deep palpation in RLQ without rebound or guarding. A/p: Crohn's ileitis, now admit with pain Awaiting Remicade indxn. - Cont steroids, plan to wean to PO in next 1-2 days. Diet as tolerated. Dicylcomin for pain, minimize narcotics.
--- NOTE | 2017-07-08 17:44 | Progress Note ---
Medicine Progress Note Date & Time of Visit: Jul 08, 2017 at 17:40. Subjective patient seen resting in bed, comfortable states pain is slightly improved no nausea no BM today dizziness when standing has resolved denies other symptoms Objective Last 8 Hrs Date Time Temp Pulse Resp B/P (MAP) Pulse Ox O2 Delivery O2 Flow Rate FiO2 07/08/17 16:00 Room Air 07/08/17 15:11 36.6 70 18 116/80 (92) 97 Room Air 07/08/17 11:51 36.5 86 18 121/80 (94) 96 Room Air Physical Exam: General- oriented x 3, not in distress, speaks in sentences with no effort Eyes- anicteric Neck- no JVD Lungs- clear breath sounds bilaterally, no rales/wheezes Heart- regular rhythm; no murmur, normal rate Abdomen- normal bowel sounds, soft, nontender, non distended Extremities- no pretibial edema, no calf tenderness; peripheral pulses intact Neuro- alert, oriented x 3; no gross deficits Skin- warm & dry Laboratory Results: Last 24 Hours Test 07/08/17 06:34 Sodium Level 138 mmol/L Potassium Level 4.0 mmol/L Chloride Level 103 mmol/L Carbon Dioxide Level 27 mmol/L Anion Gap 8.0 mmol/L Blood Urea Nitrogen 6 mg/dl Creatinine 0.39 mg/dl Est Creatinine Clear Calc Drug Dose 139.5 ml/min Estimated GFR () 140.0 Estimated GFR (Non- 120.8 BUN/Creatinine Ratio 14.6 Random Glucose 90 mg/dl Calcium Level 8.3 mg/dl Magnesium Level 2.0 mg/dl Assessment & Plan CROHN'S COLITIS FLARE CT abdomen /pelvis shows progression of her Crohn's colitis -- pain gradually improving no hematochezia -- continue IV solumedrol q8h IV fluids PRN analgesics GI consulted, appreciate the input HYPONATREMIA /LOW MG : Due to GI loss on IV fluids Na improved DEPRESSION : cont Elavil, Zoloft QTc ok on Depakote for mood disorder, level low actually CHRONIC INSOMNIA : Cont Trazodone TOBACCO ABUSE DISORDER : used smoke 1-2 pk a day , quit on March since diagnosis of IBD FULL CODE DVT PROPHYLAXIS : scd and teds ambulate pharmacological anticoagulation avoided due to active colitis /risk of GI bleed DISPOSITION : expected to be discharged home when medically stable Medicine follow up with Dr Piero Parker GI follow up with Dr Willam Alfonso Level of Care Med/Surg Resuscitation Status FULL RESUSCITATION VTE Prophylaxis Given or contraindicated: Hannah Stockings, SCD's Additional Copies To Kyung Parker M.D., Dustin G., D.Daisy Current Inpatient Medications: Current Inpatient Medications Medications (Trade) Dose Ordered Sig/Ida Route Start Time Stop Time Status Last Admin Dose Admin Ioversol (Optiray 320) 100 ml UD PRN IV 07/06/17 21:45 07/10/17 21:44 Ondansetron HCl (Zofran Inj) 4 mg Q6H PRN IV 07/07/17 01:30 08/06/17 01:29 07/08/17 08:09 4 MG Albuterol (Ventolin Hfa Inhaler) 2 puffs Q6H PRN INH 07/07/17 01:30 08/06/17 01:29 Amitriptyline HCl (Elavil Tab) 10 mg HS PO 07/07/17 21:00 08/06/17 20:59 07/07/17 20:37 10 MG Divalproex Sodium (Depakote Extended Rel Tab) 250 mg TID PO 07/07/17 09:00 08/06/17 08:59 07/08/17 13:33 250 MG Loperamide HCl (Imodium Cap) 2 mg QID PRN PO 07/07/17 01:30 08/06/17 01:29 Loratadine (Claritin Tab) 10 mg DAILY PRN PO 07/07/17 01:30 08/06/17 01:29 Lorazepam (Ativan Tab) 1 mg HS PO 07/07/17 21:00 08/06/17 20:59 07/07/17 20:37 1 MG Ranitidine HCl (zANTac TAB) 150 mg BID PO 07/07/17 09:00 08/06/17 08:59 07/08/17 08:11 150 MG Sertraline HCl (Zoloft Tab) 100 mg BID PO 07/07/17 09:00 08/06/17 08:59 07/08/17 08:11 100 MG Trazodone HCl (Desyrel Tab) 100 mg BID PO 07/07/17 09:00 9/24/17 08:59 07/08/17 08:11 100 MG Venlafaxine HCl (effeXOR EXTENDED REL CAP) 150 mg BID PO 07/07/17 09:00 08/06/17 08:59 07/08/17 08:11 150 MG Pantoprazole Sodium (Protonix Tab) 40 mg QAM PO 07/07/17 09:00 08/06/17 08:59 07/08/17 08:11 40 MG Sodium Chloride 1,000 ml @ 100 mls/hr Q10H IV 07/07/17 02:00 08/06/17 01:59 07/08/17 08:09 100 MLS/HR Methylprednisolone Sodium Succinate 20 mg/Syringe 0.32 ml @ 1.5 mls/min Q8 IV 07/07/17 14:00 08/06/17 13:59 07/08/17 13:38 1.5 MLS/MIN Polyethylene (Miralax Powder Packet) 17 gm DAILY PO 07/08/17 09:00 08/07/17 08:59 07/08/17 08:12 17 GM Cetirizine HCl (zyrTEC TAB) 10 mg DAILY PRN PO 07/07/17 12:15 08/06/17 12:14 07/07/17 13:31 10 MG Tramadol HCl (Ultram Tab) 50 mg Q4H PRN PO 07/07/17 15:15 08/06/17 15:14 07/08/17 13:38 50 MG Oxycodone/ Acetaminophen (Percocet 5-325mg Tab) 1 tab Q6H PRN PO 07/07/17 17:00 07/21/17 16:59 Morphine Sulfate (MoRPHine SULFATE INJ) 4 mg Q6H PRN IV 07/07/17 18:30 07/21/17 18:29 07/08/17 05:40 4 MG Dicyclomine HCl (Bentyl Tab) 20 mg Q6 PRN PO 07/08/17 00:00 08/06/17 10:29 07/08/17 05:39 20 MG
[2017-07-08 19:00] VITALS: BP 131/84; PULSE 83; TEMP 36.6; O2SAT 97
[2017-07-08] MEDS: OXYCODONE/ACETAMINOPHEN 5-325 TAB PO PRN (19:19)
[2017-07-08 20:08] LABS: URINE APPEARANCE CLEAR (CLEAR); URINE BILIRUBIN NEG (NEG); URINE COLOR YELLOW; URINE NITRITE NEG (NEG); URINE SPECIFIC GRAVITY 1.013 (1.000-1.030); UROBILINOGEN NEG (NEG)
[2017-07-08 20:23] LABS: MANUAL MICROSCOPIC REQUIRED? NO; REVIEW REQ? NO
[2017-07-08] MEDS: AMITRIPTYLINE HCL 10 MG TAB PO SCH (20:32)
[2017-07-08] MEDS: LORAZEPAM 1 MG TAB PO SCH (20:32)
[2017-07-08 23:55] VITALS: BP 110/74; PULSE 76; TEMP 36.6; O2SAT 97
[2017-07-09] MEDS: METHYLPREDNISOLONE IV 20 MG in SYRINGE 0 ML IV SCH ×3 (05:53→21:24)
[2017-07-09] MEDS: DICYCLOMINE HCL 20 MG TAB PO PRN ×2 (05:53→13:19)
[2017-07-09] MEDS: OXYCODONE/ACETAMINOPHEN 5-325 TAB PO PRN ×3 (05:56→18:02)
[2017-07-09] MEDS: ONDANSETRON INJ 2 MG/ML 2 ML VIAL IV PRN ×2 (05:58→18:02)
[2017-07-09 07:38] LABS: BUN/CREATININE RATIO 14.4 (10-20); CREATININE 0.39 mg/dl (0.60-1.20); MAGNESIUM 1.9 mg/dl (1.8-2.4); POTASSIUM 4.1 mmol/L (3.5-5.1)
[2017-07-09] MEDS: SODIUM CHLORIDE 0.9% 1000ML 1,000 ML IV SCH ×2 (07:41→21:21)
[2017-07-09] MEDS: TRAMADOL HCL 50 MG TAB PO PRN ×2 (07:46→16:00)
[2017-07-09 07:57] VITALS: BP 126/85; PULSE 80; TEMP 36.9; O2SAT 90
[2017-07-09] MEDS: PANTOprazole SOD 40 MG TAB PO SCH (08:11)
[2017-07-09] MEDS: POLYETHYLENE (MIRALAX) 17 GM PACK PO SCH (08:11)
[2017-07-09] MEDS: DIVALPROEX 250 MG EXTENDED REL TAB PO SCH ×3 (08:11→21:26)
[2017-07-09] MEDS: SERTRALINE HCL 100 MG TAB PO SCH ×2 (08:11→21:25)
[2017-07-09] MEDS: RANITIDINE HCL 150 MG TAB PO SCH ×2 (08:11→21:24)
[2017-07-09] MEDS: TRAZODONE HCL 100 MG TAB PO SCH ×2 (08:11→21:25)
[2017-07-09] MEDS: VENLAFAXINE HCL XR 150 MG CAPXR PO SCH ×2 (08:12→21:25)
[2017-07-09 16:42] VITALS: BP 105/71; PULSE 77; TEMP 36.5; O2SAT 96
--- NOTE | 2017-07-09 20:35 | Progress Note ---
Medicine Progress Note Date & Time of Visit: Jul 09, 2017 at 20:34. Subjective seen resting in bed, comfortable states pain is improving (+) flatus, no BM no nausea/vomiting no other symptoms Objective Last 8 Hrs Date Time Temp Pulse Resp B/P (MAP) Pulse Ox O2 Delivery O2 Flow Rate FiO2 07/09/17 18:00 Room Air 07/09/17 16:42 36.5 77 18 105/71 (82) 96 Room Air Physical Exam: General- oriented x 3, not in distress, speaks in sentences with no effort Lungs- clear breath sounds BL, no rales/wheezes Heart- regular rhythm; no murmur, normal rate Abdomen- normal bowel sounds, soft, nontender, non distended Extremities- no pretibial edema, no calf tenderness; peripheral pulses intact Neuro- alert, oriented x 3; no gross deficits Skin- warm & dry Laboratory Results: Last 24 Hours Test 07/09/17 06:32 Sodium Level 136 mmol/L Potassium Level 4.1 mmol/L Chloride Level 99 mmol/L Carbon Dioxide Level 29 mmol/L Anion Gap 8.0 mmol/L Blood Urea Nitrogen 6 mg/dl Creatinine 0.39 mg/dl Est Creatinine Clear Calc Drug Dose 139.5 ml/min Estimated GFR () 140.0 Estimated GFR (Non- 120.8 BUN/Creatinine Ratio 14.4 Random Glucose 80 mg/dl Calcium Level 9.0 mg/dl Magnesium Level 1.9 mg/dl Assessment & Plan CROHN'S COLITIS FLARE CT abdomen /pelvis shows progression of her Crohn's colitis -- improving daiy no hematochezia -- continue IV solumedrol q8h IV fluids PRN analgesics would like to maintain clear liquids GI consulted, appreciate the input HYPONATREMIA /LOW MG : Due to GI loss on IV fluids Na improved DEPRESSION : cont Elavil, Zoloft QTc ok on Depakote for mood disorder, level low actually CHRONIC INSOMNIA : Cont Trazodone TOBACCO ABUSE DISORDER : used smoke 1-2 pk a day , quit on March since diagnosis of IBD FULL CODE DVT PROPHYLAXIS : scd and teds ambulate pharmacological anticoagulation avoided due to active colitis /risk of GI bleed DISPOSITION : expected to be discharged home when medically stable Medicine follow up with Dr Piero Parker GI follow up with Dr Quarles Case Level of Care Med/Surg Resuscitation Status FULL RESUSCITATION VTE Prophylaxis Given or contraindicated: Hannah Stockings, SCD's Additional Copies To Kyung Parker M.D., Willam Elias D.O. Current Inpatient Medications: Current Inpatient Medications Medications (Trade) Dose Ordered Sig/Ida Route Start Time Stop Time Status Last Admin Dose Admin Ioversol (Optiray 320) 100 ml UD PRN IV 07/06/17 21:45 07/10/17 21:44 Ondansetron HCl (Zofran Inj) 4 mg Q6H PRN IV 07/07/17 01:30 08/06/17 01:29 07/09/17 18:02 4 MG Albuterol (Ventolin Hfa Inhaler) 2 puffs Q6H PRN INH 07/07/17 01:30 08/06/17 01:29 Amitriptyline HCl (Elavil Tab) 10 mg HS PO 07/07/17 21:00 08/06/17 20:59 07/08/17 20:32 10 MG Divalproex Sodium (Depakote Extended Rel Tab) 250 mg TID PO 07/07/17 09:00 08/06/17 08:59 07/09/17 13:20 250 MG Loperamide HCl (Imodium Cap) 2 mg QID PRN PO 07/07/17 01:30 08/06/17 01:29 Loratadine (Claritin Tab) 10 mg DAILY PRN PO 07/07/17 01:30 08/06/17 01:29 Lorazepam (Ativan Tab) 1 mg HS PO 07/07/17 21:00 08/06/17 20:59 07/08/17 20:32 1 MG Ranitidine HCl (zANTac TAB) 150 mg BID PO 07/07/17 09:00 08/06/17 08:59 07/09/17 08:11 150 MG Sertraline HCl (Zoloft Tab) 100 mg BID PO 07/07/17 09:00 08/06/17 08:59 07/09/17 08:11 100 MG Trazodone HCl (Desyrel Tab) 100 mg BID PO 07/07/17 09:00 08/06/17 08:59 07/09/17 08:11 100 MG Venlafaxine HCl (effeXOR EXTENDED REL CAP) 150 mg BID PO 07/07/17 09:00 08/06/17 08:59 07/09/17 08:12 150 MG Pantoprazole Sodium (Protonix Tab) 40 mg QAM PO 07/07/17 09:00 08/06/17 08:59 07/09/17 08:11 40 MG Sodium Chloride 1,000 ml @ 75 mls/hr [id number] IV 07/07/17 02:00 08/06/17 01:59 07/09/17 07:41 75 MLS/HR Methylprednisolone Sodium Succinate 20 mg/Syringe 0.32 ml @ 1.5 mls/min Q8 IV 07/07/17 14:00 08/06/17 13:59 07/09/17 13:19 1.5 MLS/MIN Polyethylene (Miralax Powder Packet) 17 gm DAILY PO 07/08/17 09:00 08/07/17 08:59 07/09/17 08:11 17 GM Cetirizine HCl (zyrTEC TAB) 10 mg DAILY PRN PO 07/07/17 12:15 08/06/17 12:14 07/07/17 13:31 10 MG Tramadol HCl (Ultram Tab) 50 mg Q4H PRN PO 07/07/17 15:15 08/06/17 15:14 07/09/17 16:00 50 MG Oxycodone/ Acetaminophen (Percocet 5-325mg Tab) 1 tab Q6H PRN PO 07/07/17 17:00 07/21/17 16:59 07/09/17 18:02 1 TAB Morphine Sulfate (MoRPHine SULFATE INJ) 4 mg Q6H PRN IV 07/07/17 18:30 07/21/17 18:29 07/08/17 05:40 4 MG Dicyclomine HCl (Bentyl Tab) 20 mg Q6 PRN PO 07/08/17 00:00 08/06/17 10:29 07/09/17 13:19 20 MG
[2017-07-09] MEDS: MoRPHine SULFATE 4 MG/ML 1 ML CARP\\VIAL IV PRN (21:22)
[2017-07-09] MEDS: LORAZEPAM 1 MG TAB PO SCH (21:23)
[2017-07-09] MEDS: AMITRIPTYLINE HCL 10 MG TAB PO SCH (21:26)
[2017-07-09 23:43] VITALS: BP 138/93; PULSE 84; TEMP 36.9; O2SAT 95
[2017-07-10 04:19] VITALS: BP 132/86; PULSE 84; TEMP 36.7; O2SAT 97
[2017-07-10] MEDS: METHYLPREDNISOLONE IV 20 MG in SYRINGE 0 ML IV SCH ×2 (06:04→12:41)
[2017-07-10 06:27] LABS: BUN/CREATININE RATIO 21.8 (10-20); CALCIUM 8.6 mg/dl (8.5-10.1); CREATININE 0.36 mg/dl (0.60-1.20); MAGNESIUM 1.8 mg/dl (1.8-2.4); POTASSIUM 3.7 mmol/L (3.5-5.1)
[2017-07-10 07:36] VITALS: BP 130/85; PULSE 87; TEMP 36.6; O2SAT 97
[2017-07-10 08:00] VITALS: O2SAT 97
[2017-07-10] MEDS: ONDANSETRON INJ 2 MG/ML 2 ML VIAL IV PRN ×2 (08:17→16:23)
[2017-07-10] MEDS: OXYCODONE/ACETAMINOPHEN 5-325 TAB PO PRN (08:20)
[2017-07-10] MEDS: TRAZODONE HCL 100 MG TAB PO SCH (08:21)
[2017-07-10] MEDS: PANTOprazole SOD 40 MG TAB PO SCH (08:21)
[2017-07-10] MEDS: SERTRALINE HCL 100 MG TAB PO SCH (08:21)
[2017-07-10] MEDS: RANITIDINE HCL 150 MG TAB PO SCH (08:21)
[2017-07-10] MEDS: DIVALPROEX 250 MG EXTENDED REL TAB PO SCH ×2 (08:21→12:40)
[2017-07-10] MEDS: VENLAFAXINE HCL XR 150 MG CAPXR PO SCH (08:22)
[2017-07-10] MEDS: DICYCLOMINE HCL 20 MG TAB PO PRN ×2 (08:23→16:23)
[2017-07-10] MEDS: POLYETHYLENE (MIRALAX) 17 GM PACK PO SCH (08:23)
[2017-07-10] MEDS: SODIUM CHLORIDE 0.9% 1000ML 1,000 ML IV SCH (11:03)
--- NOTE | 2017-07-10 12:01 | Progress Note ---
Medicine Progress Note Date & Time of Visit: Jul 10, 2017 at 11:59. Subjective seen resting in bed, not in distress states abdominal pain is just slightly better no BM but with Flatus tolerating current diet well denies other symptoms Objective Last 8 Hrs Date Time Temp Pulse Resp B/P (MAP) Pulse Ox O2 Delivery O2 Flow Rate FiO2 07/10/17 08:00 97 Room Air 07/10/17 07:36 36.6 87 19 130/85 (100) 97 Room Air 07/10/17 04:19 36.7 84 16 132/86 (101) 97 Room Air Physical Exam: General- oriented x 3, not in distress, speaks in sentences with no effort Lungs- clear BS bilaterally, no rales/wheezing Heart- regular rhythm; no murmur, normal rate Abdomen- non distended, normal bowel sounds, soft, mild tenderness on the Lower Quadrants Extremities- no pretibial edema, no calf tenderness; peripheral pulses intact Neuro- alert, oriented x 3; no gross deficits Skin- warm & dry Laboratory Results: Last 24 Hours Test 07/10/17 05:17 Sodium Level 133 mmol/L Potassium Level 3.7 mmol/L Chloride Level 97 mmol/L Carbon Dioxide Level 28 mmol/L Anion Gap 8.0 mmol/L Blood Urea Nitrogen 8 mg/dl Creatinine 0.36 mg/dl Est Creatinine Clear Calc Drug Dose 151.2 ml/min Estimated GFR () 143.7 Estimated GFR (Non- 124.0 BUN/Creatinine Ratio 21.8 Random Glucose 77 mg/dl Calcium Level 8.6 mg/dl Magnesium Level 1.8 mg/dl Assessment & Plan CROHN'S COLITIS FLARE CT abdomen /pelvis shows progression of her Crohn's colitis -- pain gradually improving (+) flatus, no BMs -- continue IV solumedrol q8h IV fluids PRN analgesics on full liquids, low fiber diet GI consulted, appreciate the input HYPONATREMIA /LOW MG : Due to GI loss on IV fluids Na improved DEPRESSION : cont Elavil, Zoloft QTc ok on Depakote for mood disorder, level low actually CHRONIC INSOMNIA : Cont Trazodone TOBACCO ABUSE DISORDER : used smoke 1-2 pk a day , quit on March since diagnosis of IBD FULL CODE DVT PROPHYLAXIS : scd and teds ambulate pharmacological anticoagulation avoided due to active colitis /risk of GI bleed DISPOSITION : expected to be discharged home when medically stable Medicine follow up with Dr Piero Parker GI follow up with Dr Willam Alfonso Level of Care Med/Surg Resuscitation Status FULL RESUSCITATION VTE Prophylaxis Given or contraindicated: Hannah Stockings, SCD's Additional Copies To Kyung Parker M.D., Willam Elias D.O. Current Inpatient Medications: Current Inpatient Medications Medications (Trade) Dose Ordered Sig/Ida Route Start Time Stop Time Status Last Admin Dose Admin Ioversol (Optiray 320) 100 ml UD PRN IV 07/06/17 21:45 07/10/17 21:44 Ondansetron HCl (Zofran Inj) 4 mg Q6H PRN IV 07/07/17 01:30 08/06/17 01:29 07/10/17 08:17 4 MG Albuterol (Ventolin Hfa Inhaler) 2 puffs Q6H PRN INH 07/07/17 01:30 08/06/17 01:29 Amitriptyline HCl (Elavil Tab) 10 mg HS PO 07/07/17 21:00 08/06/17 20:59 07/09/17 21:26 10 MG Divalproex Sodium (Depakote Extended Rel Tab) 250 mg TID PO 07/07/17 09:00 08/06/17 08:59 07/10/17 08:21 250 MG Loperamide HCl (Imodium Cap) 2 mg QID PRN PO 07/07/17 01:30 08/06/17 01:29 Loratadine (Claritin Tab) 10 mg DAILY PRN PO 07/07/17 01:30 08/06/17 01:29 Lorazepam (Ativan Tab) 1 mg HS PO 07/07/17 21:00 08/06/17 20:59 07/09/17 21:23 1 MG Ranitidine HCl (zANTac TAB) 150 mg BID PO 07/07/17 09:00 08/06/17 08:59 07/10/17 08:21 150 MG Sertraline HCl (Zoloft Tab) 100 mg BID PO 07/07/17 09:00 08/06/17 08:59 07/10/17 08:21 100 MG Trazodone HCl (Desyrel Tab) 100 mg BID PO 07/07/17 09:00 08/06/17 08:59 07/10/17 08:21 100 MG Venlafaxine HCl (effeXOR EXTENDED REL CAP) 150 mg BID PO 07/07/17 09:00 08/06/17 08:59 07/10/17 08:22 150 MG Pantoprazole Sodium (Protonix Tab) 40 mg QAM PO 07/07/17 09:00 08/06/17 08:59 07/10/17 08:21 40 MG Sodium Chloride 1,000 ml @ 75 mls/hr [id number] IV 07/07/17 02:00 08/06/17 01:59 07/10/17 11:03 75 MLS/HR Methylprednisolone Sodium Succinate 20 mg/Syringe 0.32 ml @ 1.5 mls/min Q8 IV 07/07/17 14:00 08/06/17 13:59 07/10/17 06:04 1.5 MLS/MIN Polyethylene (Miralax Powder Packet) 17 gm DAILY PO 07/08/17 09:00 08/07/17 08:59 07/10/17 08:23 17 GM Cetirizine HCl (zyrTEC TAB) 10 mg DAILY PRN PO 07/07/17 12:15 08/06/17 12:14 07/07/17 13:31 10 MG Tramadol HCl (Ultram Tab) 50 mg Q4H PRN PO 07/07/17 15:15 08/06/17 15:14 07/09/17 16:00 50 MG Oxycodone/ Acetaminophen (Percocet 5-325mg Tab) 1 tab Q6H PRN PO 07/07/17 17:00 07/21/17 16:59 07/10/17 08:20 1 TAB Morphine Sulfate (MoRPHine SULFATE INJ) 4 mg Q6H PRN IV 07/07/17 18:30 07/21/17 18:29 07/09/17 21:22 4 MG Dicyclomine HCl (Bentyl Tab) 20 mg Q6 PRN PO 07/08/17 00:00 08/06/17 10:29 07/10/17 08:23 20 MG
--- NOTE | 2017-07-10 14:26 | Gastroenterology Progress Note ---
Progress Note Date of Service: Jul 10, 2017 Subjective Pt evaluation today including: conversation w/ patient, physical exam, chart review, lab review, review of studies, review of inpatient medication list Patient reports persistent abdominal pain as 9/10 in the lower abdomen. She denies any vomiting but does confirm some mild nausea and infrequent bowel movements. States she has not passed any stool for the past two days. CT imaging from admission reviewed and demonstrates worsening ileitis with stenosis. Outpatient referral has been made for colorectal surgery evaluation which is pending for the middle of July. There has been discussion about Remicade as well but the decision was made to hold off on Remicade until surgery eval in the event that she may require an urgent resection prior to starting biologic therapy. Currently, the patient is rating her pain as 9/10 in intensity and has been using both Tramadol and Oxycodone for pain control. Review of Systems Constitutional: No fever, No chills Respiratory: No problem reported Cardiac: No problem reported Abdomen: + see HPI Medications Current Inpatient Medications Medications (Trade) Dose Ordered Sig/Ida Route Start Time Stop Time Status Last Admin Dose Admin Ioversol (Optiray 320) 100 ml UD PRN IV 07/06/17 21:45 07/10/17 21:44 Ondansetron HCl (Zofran Inj) 4 mg Q6H PRN IV 07/07/17 01:30 08/06/17 01:29 07/10/17 08:17 4 MG Albuterol (Ventolin Hfa Inhaler) 2 puffs Q6H PRN INH 07/07/17 01:30 08/06/17 01:29 Amitriptyline HCl (Elavil Tab) 10 mg HS PO 07/07/17 21:00 08/06/17 20:59 07/09/17 21:26 10 MG Divalproex Sodium (Depakote Extended Rel Tab) 250 mg TID PO 07/07/17 09:00 08/06/17 08:59 07/10/17 12:40 250 MG Loperamide HCl (Imodium Cap) 2 mg QID PRN PO 07/07/17 01:30 08/06/17 01:29 Loratadine (Claritin Tab) 10 mg DAILY PRN PO 07/07/17 01:30 08/06/17 01:29 Lorazepam (Ativan Tab) 1 mg HS PO 07/07/17 21:00 08/06/17 20:59 07/09/17 21:23 1 MG Ranitidine HCl (zANTac TAB) 150 mg BID PO 07/07/17 09:00 08/06/17 08:59 07/10/17 08:21 150 MG Sertraline HCl (Zoloft Tab) 100 mg BID PO 07/07/17 09:00 08/06/17 08:59 07/10/17 08:21 100 MG Trazodone HCl (Desyrel Tab) 100 mg BID PO 07/07/17 09:00 08/06/17 08:59 07/10/17 08:21 100 MG Venlafaxine HCl (effeXOR EXTENDED REL CAP) 150 mg BID PO 07/07/17 09:00 08/06/17 08:59 07/10/17 08:22 150 MG Pantoprazole Sodium (Protonix Tab) 40 mg QAM PO 07/07/17 09:00 08/06/17 08:59 07/10/17 08:21 40 MG Sodium Chloride 1,000 ml @ 75 mls/hr [id number] IV 07/07/17 02:00 08/06/17 01:59 07/10/17 11:03 75 MLS/HR Methylprednisolone Sodium Succinate 20 mg/Syringe 0.32 ml @ 1.5 mls/min Q8 IV 07/07/17 14:00 08/06/17 13:59 07/10/17 12:41 1.5 MLS/MIN Polyethylene (Miralax Powder Packet) 17 gm DAILY PO 07/08/17 09:00 08/07/17 08:59 07/10/17 08:23 17 GM Cetirizine HCl (zyrTEC TAB) 10 mg DAILY PRN PO 07/07/17 12:15 08/06/17 12:14 07/07/17 13:31 10 MG Tramadol HCl (Ultram Tab) 50 mg Q4H PRN PO 07/07/17 15:15 08/06/17 15:14 07/09/17 16:00 50 MG Oxycodone/ Acetaminophen (Percocet 5-325mg Tab) 1 tab Q6H PRN PO 07/07/17 17:00 07/21/17 16:59 07/10/17 08:20 1 TAB Morphine Sulfate (MoRPHine SULFATE INJ) 4 mg Q6H PRN IV 07/07/17 18:30 07/21/17 18:29 07/09/17 21:22 4 MG Dicyclomine HCl (Bentyl Tab) 20 mg Q6 PRN PO 07/08/17 00:00 08/06/17 10:29 07/10/17 08:23 20 MG Objective Vital Signs Date Time Temp Pulse Resp B/P (MAP) Pulse Ox O2 Delivery O2 Flow Rate FiO2 07/10/17 08:00 97 Room Air 07/10/17 07:36 36.6 87 19 130/85 (100) 97 Room Air 07/10/17 04:19 36.7 84 16 132/86 (101) 97 Room Air 07/10/17 00:00 Room Air 07/09/17 23:43 36.9 84 18 138/93 (108) 95 Room Air 07/09/17 18:00 Room Air 07/09/17 16:42 36.5 77 18 105/71 (82) 96 Room Air Physical Exam General Appearance: no apparent distress Respiratory/Chest: lungs clear, normal breath sounds, no respiratory distress Cardiovascular: regular rate, rhythm, no gallop, no murmur Abdomen: normal bowel sounds, soft, + distended, + tenderness (RLQ and LLQ) Extremities: no pedal edema Neurologic/Psych: alert, normal mood/affect, oriented x 3 Skin: warm/dry Laboratory Results Last 24 Hours Test 07/10/17 05:17 Sodium Level 133 mmol/L Potassium Level 3.7 mmol/L Chloride Level 97 mmol/L Carbon Dioxide Level 28 mmol/L Anion Gap 8.0 mmol/L Blood Urea Nitrogen 8 mg/dl Creatinine 0.36 mg/dl Est Creatinine Clear Calc Drug Dose 151.2 ml/min Estimated GFR () 143.7 Estimated GFR (Non- 124.0 BUN/Creatinine Ratio 21.8 Random Glucose 77 mg/dl Calcium Level 8.6 mg/dl Magnesium Level 1.8 mg/dl Assessment and Plan Patient is a 51 year-old female with with Crohn's ileitis with stenosis and abdominal pain/distension refractory to corticosteroids. I do have concerns that this patient is a high-risk for developing a small bowel obstruction which is increased with use of opioid analgesics which decrease GI motility. I did discuss my concerns in regard to initiation of biologic therapy prior to surgical evaluation and possible resection with Dr. Brooks as sometimes biologic therapy can actually contribute to the development of worsening stenosis/obstruction as the healing process occurs. Recommend transfer to tertiary center for consideration of ileal resection as she is having severe abdominal pain and bloating with decreased fecal output. Recommend limiting use of narcotic analgesics and this was reinforced with the patient at bedside and was discussed with her in the office prior to admission. Agree with CHIKI Pearce as above Abd: Distended, Tender RLQ Recommend transfer to [facility] for evaluation by Colorectal surgery. Continue current therapy
--- NOTE | 2017-07-10 15:33 | Discharge Instructions ---
Discharge Instructions Date of Service Jul 10, 2017. Admission Reason for Admission: Abdominal Pain, Crohns Colitis Discharge Discharge Diagnosis / Problem: CROHN'S ILEITIS, POSSIBLE STRICTURE Discharge Goals Goal(s): Diagnostic testing, Therapeutic intervention Activity Recommendations Activity Level: Ambulates in room . Additional Information Patient informed of condition: Yes Advance Directives: No (UNKNOWN) DNR: No (PATIENT IS FULL CODE) Level of Care: Other ([facility]) Communicable Disease: No Prognosis: Other (GUARDED) Instructions / Follow-Up Instructions / Follow-Up PLEASE REFER TO SEPARATE MEDICAL RECONCILIATION SHEET FOR UPDATED MEDICATION LIST. ALSO REFER TO HOSPITAL DISCHARGE SUMMARY ATTACHED FOR FURTHER DETAILS. Current Hospital Diet Patient's current hospital diet: Full Liquid Diet, Low Fiber Diet Discharge Diet Recommended Diet: Full Liquid Diet Procedures Procedures Performed: CT ABDOMEN Pending Studies Studies pending at discharge: yes List of pending studies: CASE DISCUSSED WITH [facility] HOSPITALIST AND GI SERVICE DR. BEASLEY AND DR. AGUILERA Medical Emergencies . Who to Call and When: Medical Emergencies: If at any time you feel your situation is an emergency, please call 911 immediately. . Non-Emergent Contact Non-Emergency issues call your: Primary Care Provider Call Non-Emergent contact if: you have a fever, your pain is not controlled, your pain is worsening, you have any medication questions . Past History Medical & Surgical History: (1) Abdominal pain (2) Crohn's colitis (3) Exacerbation of Crohn's disease . "Provider Documentation" section prepared by Tyree Brooks. . Core Measure Problem Core Measures: None
--- NOTE | 2017-07-10 15:40 | Discharge Summary ---
Discharge Summary Date of Service Jul 10, 2017. Discharge Summary Admission Date: Jul 07, 2017 at 00:43 Discharge Date: Jul 10, 2017 Discharge Disposition: Acute care facility Principal Diagnosis: CROHN'S COLITIS FLARE Secondary Diagnoses/Problems: PLEASE REFER TO HOSPITAL COURSE BELOW. Procedures: DICTATED BY: Willam Alfonso D.O. Procedure Date: 06/13/2017 8:57 AM Procedure: Colonoscopy Indications: Abnormal CT of the GI tract Medicines: Monitored Anesthesia Care Complications: No immediate complications. Estimated Blood Loss: Estimated blood loss: none. Procedure: Pre-Anesthesia Assessment: - Prior to the procedure, a History and Physical was performed, and patient medications and allergies were reviewed. The patient's tolerance of previous anesthesia was also reviewed. The risks and benefits of the procedure and the sedation options and risks were discussed with the patient. All questions were answered, and informed consent was obtained. Prior Anticoagulants: The patient has taken no previous anticoagulant or antiplatelet agents. ASA Grade Assessment: II - A patient with mild systemic disease. After reviewing the risks and benefits, the patient was deemed in satisfactory condition to undergo the procedure. After I obtained informed consent, the scope was passed under direct vision. Throughout the procedure, the patient's blood pressure, pulse, and oxygen saturations were monitored continuously. The scope was introduced through the anus and advanced to the terminal ileum. The colonoscopy was performed without difficulty. The patient tolerated the procedure well. The quality of the bowel preparation was good. The terminal ileum, ileocecal valve, appendiceal orifice, and rectum were photographed. Findings: A localized area of mucosa in the terminal ileum was moderately ulcerated. There was a mild stricture of the Terminal ileum as it entered the colon. Biopsies were taken with a cold forceps for histology. Several random biopsies were obtained with cold forceps for histology in the entire colon. Three sessile polyps were found in the sigmoid colon and in the ascending colon. The polyps were 3 to 6 mm in size. These polyps were removed with a cold snare. Resection and retrieval were complete. Non-bleeding internal hemorrhoids were found during retroflexion. The hemorrhoids were small. Impression: - Ulcerated mucosa in the terminal ileum. Biopsied. - Three 3 to 6 mm polyps in the sigmoid colon and in the ascending colon, removed with a cold snare. Resected and retrieved. - Non-bleeding internal hemorrhoids. - Several random biopsies were obtained in the entire colon. Recommendation: - Resume previous diet. - Use budesonide 9 mg PO one time per day for 8 weeks. - Repeat colonoscopy for surveillance based on pathology results. - Return to GI office as previously scheduled. Willam Alfonso DO 06/13/2017 9:37:41 AM This report has been signed electronically. Note Initiated On: 06/13/2017 8:57 AM I attest to the content of the Intraoperative Record and orders documented therein, exceptions below ABD/PELVIS IV CONTRAST ONLY CLINICAL HISTORY: 51 years-old Female presenting with severe abd pain, crohns. TECHNIQUE: Multidetector CT of the abdomen and pelvis was performed after the administration of intravenous contrast. IV contrast: 91 mL of Optiray 320. A dose lowering technique was used consistent with the principles of ALARA (as low as reasonably achievable). COMPARISON: 06/23/2017. CT DOSE (mGy.cm): The estimated cumulative dose is 279.29 mGy.cm. 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 Lung bases: Lung bases clear. No pericardial or pleural effusion. Liver: Normal morphology. Perfusional variation noted along the fissure for the ligamentum teres. No liver lesion. Patent hepatic vasculature. Biliary: No intrahepatic or extrahepatic biliary ductal dilatation. Normal gallbladder. Pancreas: Normal. Mild pancreatic ductal prominence. Spleen: Normal. Adrenal glands: Normal. Kidneys and ureters: Normal. No hydronephrosis. Bladder: Incompletely evaluated secondary to underdistention. Pelvic organs: Uterus surgically absent. Bowel: Colonic wall thickening with intramural fat deposition in the right colon. Wall thickening and intramural fat deposition also noted in the terminal ileum. Wall thickening extends along the terminal ileum proximally to the distal ileum for an extended segment (at least 30 cm) the distribution is unchanged from prior. The degree of wall thickening has increased, which now measures up to 7 mm. The affected small bowel demonstrates relative luminal dilatation in comparison to the narrow lumen terminal ileum. Mucosal and serosal hyperenhancement evident with prominence of the basal right and minimal mesenteric infiltration. Prominent enhancing mesenteric lymph nodes. More proximal small bowel is unaffected. No evidence of perienteric sinus track or phlegmonous change. No bowel obstruction or distention. Peritoneal cavity: No free fluid or intraperitoneal gas. Vasculature: Atherosclerosis of the normal caliber abdominal aorta. IVC patent. Lymph nodes: Prominent mesenteric lymph nodes slightly increased in size from prior. Abdominal wall: Normal. Musculoskeletal: Normal. IMPRESSION: 1. Slight interval increase in bowel wall thickening of the affected long segment of distal ileum with associated increased as enteric infiltration and slight increased size of mesenteric lymph nodes. This is concerning for worsening of active disease. Relative dilatation of the affected bowel in comparison to the terminal ileum suggests an element of stricturing disease. Chronic inflammatory changes of the terminal ileum and right colon. No evidence of penetrating disease. KUB HISTORY: crohn's flare up, r/o obstruction. Acute abdominal pain COMPARISON: CT abdomen and pelvis 07/06/2017. FINDINGS: Mildly dilated air-filled loops of small bowel are again seen within the midabdomen measuring up to 3.3 cm, previously measuring up to 3.[address] No evidence of high-grade bowel obstruction. There is no organomegaly. No renal calculi. No ureteral calculi. No pneumoperitoneum or pneumatosis. No fracture. IMPRESSION: Mildly dilated air-filled loops of small bowel within the midabdomen appears slightly improved from comparison CT dated 07/06/2017, likely attributed to patient's underlying Crohn's disease. No evidence of high-grade bowel obstruction or pneumoperitoneum. Consultations: GASTROENTEROLOGY Pending Studies/Follow-Up: PLEASE REFER TO HOSPITAL COURSE BELOW. Medication Reconciliation Continued Medications: Albuterol Hfa (Ventolin Hfa) 200 Puffs/00615 Mcg Aers 2-4 PUFFS INH Q6H PRN for Shortness of Breath, INHALER Amitriptyline HCl (Amitriptyline HCl) 10 Mg Tab 10 MG PO HS Divalproex Sodium (Depakote Er) 250 Mg Tab 250 MG PO TID, TAB Loperamide Hcl (Imodium) 2 Mg Cap 2 MG PO QID PRN for Diarrhea, CAP Loratadine (Claritin) 10 Mg Tab 10 MG PO DAILY PRN for Allergy Symptoms, TAB Lorazepam (Ativan) 1 Mg Tab 1 MG PO HS, TAB Omeprazole (Prilosec) 20 Mg Capcr 20 MG PO QAM, CAP Ranitidine (Zantac) 150 Mg Tab 150 MG PO BID, TAB Sertraline (Zoloft) 100 Mg Tab 100 MG PO BID, TAB Trazodone Hcl (Trazodone) 100 Mg Tab 100-150 MG PO BID, TAB Venlafaxine Hcl (Venlafaxine Hcl Er) 150 Mg Tab 150 MG PO BID, TAB Discontinued Medications: Estradiol (Estrace) 1 Mg Tab 1 MG PO QAM, TAB Admission Information HPI (per Admitting provider): This is 51 yo F with medial hx of Crohn's colitis , depression , anxiety disorder presents with complain of worsening of abdominal pain/cramps , ongoing diarrhea , nausea /vomiting CT abdomen /pelvis shows active inflammation at terminal ileum pt is afebrile , with normal white count , no evidence of sepsis given IV Solu Medrol in Ed will be admitted to Medical floor for IV steroid for Crohn's colitis flare and ongoing supportive care for GI symptoms with bowel rest , IVF and pain meds GI team consulted -pt is known to Dr Alfonso Physical Exam (per Admitting): General Appearance: no apparent distress Head: normocephalic, atraumatic Eyes: normal inspection, PERRL, EOMI, sclerae normal Neck: supple, no adenopathy, thyroid normal, no JVD, no carotid bruits, trachea midline Respiratory/Chest: chest non-tender, lungs clear, normal breath sounds, no respiratory distress, no accessory muscle use Cardiovascular: regular rate, rhythm, no edema, no gallop, no JVD, no murmur , normal peripheral pulses Abdomen/GI: soft, + tenderness (in rt lower quadrant , no rebound , no gurading ) Extremities/Musculoskelatal: normal inspection, no calf tenderness, normal capillary refill, no pedal edema, normal range of motion Neurologic/Psych: no motor/sensory deficits, alert, normal mood/affect, oriented x 3 Hospital Course CROHN'S COLITIS FLARE -- recently diagnosed with Crohn's Disease 06/13/17 via Colonoscopy (full report noted in procedure section above) prescribed with enterocort but presented with persistent abdominal pain, no BMs x few days -- CT abdomen /pelvis shows progression of her Crohn's colitis: Slight interval increase in bowel wall thickening of the affected long segment of distal ileum with associated increased as enteric infiltration and slight increased size of mesenteric lymph nodes. This is concerning for worsening of active disease. Relative dilatation of the affected bowel in comparison to the terminal ileum suggests an element of stricturing disease. Chronic inflammatory changes of the terminal ileum and right colon. No evidence of penetrating disease. -- given IV solumedrol q8h, IV fluids, full liquids, PRN Morphine and Percocet -- GI re-evaluated patient today pain still present, no BMs since admission but with (+) Flatus -- GI recommending transfer to Tertiary Level of Care, as patient may require ileal resection of ileum stricture -- discussed case with [facility] Hospitalist Dr. Beasley and GI Dr. Barlow and the kindly accepted the patient HYPONATREMIA Na 133-138 on IV fluids monitor DEPRESSION : QTc within acceptable range cont Elavil, Zoloft on Depakote for mood disorder, level is low mood stable CHRONIC INSOMNIA : Cont Trazodone TOBACCO ABUSE DISORDER : used smoke 1-2 pk a day , quit on March since diagnosis of IBD FULL CODE DVT PROPHYLAXIS : scd and teds ambulate pharmacological anticoagulation avoided due to active colitis /risk of GI bleed DISPOSITION : transfer to [facility] today ff up with PCP in [address] Parker ff up with GI Level of Care Med/Surg Resuscitation Status FULL RESUSCITATION VTE Prophylaxis Given or contraindicated: Hannah Stockings, SCD's Additional Copies To Kyung Parker M.D., Dustin G. D.Daisy Total time spent on discharge = 50 minutes This includes examination of the patient, discharge planning, medication reconciliation, and communication with other providers. Discharge Instructions Discharge Instructions Date of Service Jul 10, 2017. Admission Reason for Admission: Abdominal Pain, Crohns Colitis Discharge Discharge Diagnosis / Problem: CROHN'S ILEITIS, POSSIBLE STRICTURE Discharge Goals Goal(s): Diagnostic testing, Therapeutic intervention Activity Recommendations Activity Level: Ambulates in room . Additional Information Patient informed of condition: Yes Advance Directives: No (UNKNOWN) DNR: No (PATIENT IS FULL CODE) Level of Care: Other ([facility]) Communicable Disease: No Prognosis: Other (GUARDED) Instructions / Follow-Up Instructions / Follow-Up PLEASE REFER TO SEPARATE MEDICAL RECONCILIATION SHEET FOR UPDATED MEDICATION LIST. ALSO REFER TO HOSPITAL DISCHARGE SUMMARY ATTACHED FOR FURTHER DETAILS. Current Hospital Diet Patient's current hospital diet: Full Liquid Diet, Low Fiber Diet Discharge Diet Recommended Diet: Full Liquid Diet Procedures Procedures Performed: CT ABDOMEN Pending Studies Studies pending at discharge: yes List of pending studies: CASE DISCUSSED WITH [facility]PITAL[facility] AND GI SERVICE DR. BEASLEY AND DR. BARLOW Medical Emergencies . Who to Call and When: Medical Emergencies: If at any time you feel your situation is an emergency, please call 911 immediately. . Non-Emergent Contact Non-Emergency issues call your: Primary Care Provider Call Non-Emergent contact if: you have a fever, your pain is not controlled, your pain is worsening, you have any medication questions . Past History Medical & Surgical History: (1) Abdominal pain (2) Crohn's colitis (3) Exacerbation of Crohn's disease . "Provider Documentation" section prepared by Tyree Brooks. . Core Measure Problem Core Measures: None
[2017-07-10 16:02] VITALS: BP 173/90; PULSE 51; TEMP 36.5; O2SAT 96
[2017-07-10] MEDS: TRAMADOL HCL 50 MG TAB PO PRN (18:33)
[2017-07-10 18:46] VITALS: BP 173/90; PULSE 51; TEMP 36.5; O2SAT 96
[2017-07-12 18:40] LABS: QUANTIF TB AG-NIL 0.01 IU/ML; QUANTIFERON NIL 0.07 IU/ML
== END 2017-07-10 19:38 | disposition short-term general hospital (02) | DRG 386 ==
LOC: C.EDB 20:27 → C.MED 07-07 00:43 → ENRESERV 07-07 01:09
PROVIDERS: ADMIT Hospitalist; ATTEND Internal Medicine
DX: K50.812 Crohn's disease of both small and large intestine with intestinal obstruction (principal); E87.1 Hypo-osmolality and hyponatremia; E83.42 Hypomagnesemia; K21.9 Gastro-esophageal reflux disease without esophagitis; G47.00 Insomnia, unspecified; F32.9 Major depressive disorder, single episode, unspecified; F41.9 Anxiety disorder, unspecified; Z87.891 Personal history of nicotine dependence; Z79.890 Hormone replacement therapy; Z79.899 Other long term (current) drug therapy

== ENCOUNTER 2017-09-10 18:00 | Inpatient (IN) | payer OTHER ==
[~2017-09-10] VITALS: Ht 160 cm; Wt 61.2 kg
[~2017-09-10 18:00] MED LIST changes: -DICY20TA35 PO; -ESTR1TAB2 PO; -ONDA4TAB46 PO
[2017-09-10] MEDS ORDERED: SODIUM CHLORIDE 0.9% 1000ML 1,000 ML IV STA (18:21)
[2017-09-10] MEDS ORDERED: ACETAMINOPHEN 500 MG TAB PO STA (18:21)
[2017-09-10] MEDS ORDERED: HYDROmorphone INJ 1 MG/ML SYR IV STA (18:21)
--- NOTE | 2017-09-10 18:25 | EMERGENCY ROOM VISIT NOTE ---
History Report prepared by Genna: Valentino Aranda Under the Supervision of: Dr. Arvin Cox M.D. First contact with patient: 18:07 Chief Complaint: ABDOMINAL PAIN Stated Complaint: SEVERE STOMACH PAIN, NAUSEA History of Present Illness The patient is a 51 year old white female with a past medical history of Crohn' s colitis and hysterectomy who presents to the ED with a cc of worsening lower abdominal pain beginning a week ago. Positive nausea. Negative vomiting, hematochezia, recent travels, recent antibiotics, blood thinners, and trauma. The patient states that this is similar to her normal Crohn's flares. The patient is finishing an 8 week steroid taper. Source of History: patient Onset: a week ago Position: abdomen (lower) Timing: worsening Associated Symptoms: + nausea, No vomiting, No hematochezia Review of Systems See HPI for pertinent positives and negatives. A total of ten systems were reviewed and were otherwise negative. Past Medical & Surgical Medical Problems: (1) Abdominal pain (2) Crohn's colitis (3) Crohn's disease (regional enteritis) Social History Smoking Status: Former Smoker Alcohol Use: none Drug Use: none Marital Status: Occupation Status: disabled Current/Historical Medications Scheduled Amitriptyline HCl (Amitriptyline HCl), 10 MG PO HS Divalproex Sodium (Depakote Er), 250 MG PO TID Estradiol (Estrace), 1 MG PO UD Ferrous Sulfate (Iron), 1 TAB PO DAILY Folic Acid (Folvite), 1 MG PO DAILY Lorazepam (Ativan), 1 MG PO HS Omeprazole (Prilosec), 20 MG PO QAM Prednisone Tab (Prednisone), 10 MG PO TAPER UD Ranitidine (Zantac), 150 MG PO BID Sertraline (Zoloft), 100 MG PO BID Trazodone Hcl (Trazodone), 100-150 MG PO BID Venlafaxine Hcl (Venlafaxine Hcl Er), 150 MG PO BID Scheduled PRN Albuterol Hfa (Ventolin Hfa), 2-4 PUFFS INH Q6H PRN for Shortness of Breath Loperamide Hcl (Imodium), 2 MG PO QID PRN for Diarrhea Loratadine (Claritin), 10 MG PO DAILY PRN for Allergy Symptoms Allergies Coded Allergies: Naproxen (Verified Allergy, Severe, HIVES, SWELLING, 8/1/17) Physical Exam Vital Signs Date Time Temp Pulse Resp B/P (MAP) Pulse Ox O2 Delivery O2 Flow Rate FiO2 09/10/17 19:52 83 18 111/78 93 Room Air 09/10/17 19:19 93 09/10/17 19:14 90 20 110/83 93 Room Air 09/10/17 18:49 98 17 108/62 93 Room Air 09/10/17 18:02 37.1 123 20 106/35 96 Room Air Physical Exam GENERAL: Awake, alert, uncomfortable-appearing, NAD HENT: Normocephalic, atraumatic. EYES: Normal conjunctiva. Sclera non-icteric. NECK: Supple. No nuchal rigidity. FROM. RESPIRATORY: CTAB, no rhonchi, wheezing, crackles CARDIAC: Tachycardic and regular, no MRG ABDOMEN: Epigastric and RUQ pain. Suprapubic and RLQ pain with most in the RLQ. Negative Obturators and Psoas. Soft, ND, BS+ MSK: No chest wall TTP, no LE edema NEURO: GCS 15, CN 2-12 intact, moves all 4s on command SKIN: No rash or jaundice noted. Medical Decision & Procedures ER Provider Diagnostic Interpretation: Radiology results as stated below per my review and radiologist interpretation: ABD/PELVIS IV CONTRAST ONLY CT DOSE: 269.79 mGy.cm HISTORY: Abdominal pain. Crohn's disease. Lung bases are clear. h/o Frohn's, ab pain >est. in RLQ TECHNIQUE: Multiaxial CT images of the abdomen and pelvis were performed following the use of intravenous contrast. A dose lowering technique was utilized adhering to the principles of ALARA. COMPARISON STUDY: 07/06/2017 FINDINGS: Lung bases are clear. There is uniform throughout. Gallbladder is negative for distention. Kidneys and 8 uniformly. Spleen is unremarkable as is the pancreas. The distal and/or terminal ileum continues show wall thickening. The thickness of the wall as well as linear extent of the wall thickening appears to be in general similar as compared to the prior study. There is a changing caliber of the small bowel at the right anterior abdomen but this appears to be similar to perhaps somewhat less prominent as compared to the prior study. Appearance does suggest active Crohn's disease of this is perhaps at least slightly improved from the prior study. Colonic wall thickening and reactive distention is slightly improved. Minimal infiltrative change of the mesentery is stable to slightly improved with reactive skye change in the mid mesentery slightly diminished. No abscess or collection is appreciated. IMPRESSION: 1. Stable to slightly improved appearance to the right lower quadrant compared to the prior exam. 2. Small bowel wall thickening is considered stable to perhaps slightly diminished with the colonic distention stable to slightly diminished as well. 3. Infiltrative change of the mesentery with associated regional nodes stable to slightly improved. 4. No evidence for abscess or collection. 5. This study continues to suggest active Crohn's disease although overall this study is perhaps minimally improved compared to the prior exam. The above report was generated using voice recognition software. It may contain grammatical, syntax or spelling errors. Electronically signed by: Jose L Rutledge M.D. 09/10/2017 8:52 PM Dictated Date/Time: 09/10/2017 7:48 PM Laboratory Results 09/10/17 18:38 Red Blood Count 4.57, Mean Corpuscular Volume 96.5, Mean Corpuscular Hemoglobin 32.8, Mean Corpuscular Hemoglobin Concent 34.0, Mean Platelet Volume 11.0, Neutrophils (%) (Auto) 77.5, Lymphocytes (%) (Auto) 17.9, Monocytes (%) (Auto) 4.1, Eosinophils (%) (Auto) 0.0, Basophils (%) (Auto) 0.2, Neutrophils # (Auto) 7.54, Lymphocytes # (Auto) 1.74, Monocytes # (Auto) 0.40, Eosinophils # (Auto) 0.00, Basophils # (Auto) 0.02 09/10/17 18:38 Test 09/10/17 18:38 09/10/17 21:30 White Blood Count 9.73 K/uL (4.8-10.8) Red Blood Count 4.57 M/uL (4.2-5.4) Hemoglobin 15.0 g/dL (12.0-16.0) Hematocrit 44.1 % (37-47) Mean Corpuscular Volume 96.5 fL (80-100) Mean Corpuscular Hemoglobin 32.8 pg (25-34) Mean Corpuscular Hemoglobin Concent 34.0 g/dl (32-36) Platelet Count 232 K/uL (130-400) Mean Platelet Volume 11.0 fL (7.4-10.4) Neutrophils (%) (Auto) 77.5 % Lymphocytes (%) (Auto) 17.9 % Monocytes (%) (Auto) 4.1 % Eosinophils (%) (Auto) 0.0 % Basophils (%) (Auto) 0.2 % Neutrophils # (Auto) 7.54 K/uL (1.4-6.5) Lymphocytes # (Auto) 1.74 K/uL (1.2-3.4) Monocytes # (Auto) 0.40 K/uL (0.11-0.59) Eosinophils # (Auto) 0.00 K/uL (0-0.5) Basophils # (Auto) 0.02 K/uL (0-0.2) RDW Standard Deviation 44.8 fL (36.4-46.3) RDW Coefficient of Variation 12.8 % (11.5-14.5) Immature Granulocyte % (Auto) 0.3 % Immature Granulocyte # (Auto) 0.03 K/uL (0.00-0.02) Erythrocyte Sedimentation Rate 22 mm/hr (0-21) Anion Gap 10.0 mmol/L (3-11) Est Creatinine Clear Calc Drug Dose 78.9 ml/min Estimated GFR () 116.0 Estimated GFR (Non- 100.1 BUN/Creatinine Ratio 18.1 (10-20) Calcium Level 9.3 mg/dl (8.5-10.1) Magnesium Level 1.7 mg/dl (1.8-2.4) Total Bilirubin 0.3 mg/dl (0.2-1) Direct Bilirubin < 0.1 mg/dl (0-0.2) Aspartate Amino Transf (AST/SGOT) 10 U/L (15-37) Alanine Aminotransferase (ALT/SGPT) 14 U/L (12-78) Alkaline Phosphatase 83 U/L (45-117) Total Protein 7.6 gm/dl (6.4-8.2) Albumin 3.6 gm/dl (3.4-5.0) Lipase 64 U/L (73-393) Laboratory results reviewed by me Medications Administered Medications (Trade) Dose Ordered Sig/Ida Route Start Time Stop Time Status Last Admin Dose Admin Sodium Chloride 1,000 ml @ 999 mls/hr Q1H1M STAT IV 09/10/17 18:21 09/10/17 19:21 DC 09/10/17 18:42 999 MLS/HR Acetaminophen (Tylenol Tab) 1,000 mg NOW STAT PO 09/10/17 18:21 09/10/17 18:23 DC 09/10/17 18:45 1,000 MG Hydromorphone HCl (Dilaudid Inj) 1 mg NOW STAT IV 09/10/17 18:21 09/10/17 18:23 DC 09/10/17 18:45 1 MG Promethazine HCl 12.5 mg/Sodium Chloride 50.5 ml @ 204 mls/hr NOW STAT IV 09/10/17 19:03 09/10/17 19:17 DC 09/10/17 19:13 204 MLS/HR Methylprednisolone Sodium Succinate (Solu-Medrol IV) 125 mg NOW STAT IV 09/10/17 21:03 09/10/17 21:04 DC 09/10/17 21:19 125 MG ED Course 1806: The patient was evaluated in room B11. A complete history and physical exam was performed. 1956: I reevaluated the patient, and she was feeling well. 2046: I discussed the patient with GI. They state that if she can tolerate PO and steroids, then she can follow up, but if she needs to be evaluated for pain management, then she should be evaluated by the hospitalist. 2055: I reevaluated the patient, and I discussed the treatment plan. She states that she did not want to do a PO challenge. I discussed treatment options, and she is going to be evaluated by a hospitalist for further evaluation. 2101: Discussed the patient's case with Stella Washington. The patient will be evaluated for further treatment and disposition. Medical Decision The patient is a 51 year old white female with a past medical history of Crohn' s colitis and hysterectomy who presents to the ED with a cc of worsening lower abdominal pain beginning a week ago. Positive nausea. Negative vomiting, hematochezia, recent travels, recent antibiotics, blood thinners, and trauma. Triage Nursing notes reviewed. The patient's presentation and history were concerning for etiologies such as appendicitis, diverticulitis, PUD, biliary pathology, UTI, pancreatitis, obstruction, mesenteric ischemia, aortic pathology, infections, inflammatory bowel disease, renal colic, as well as others were entertained. Patient was seen and evaluated the bedside. Patient is a history of Crohn's. Patient states that her current symptoms are similar to a Crohn's flare. Patient hasn't had a prior hysterectomy but no other abdominal surgeries. Patient has never had any bowel resection. Patient does take Remicade for maintenance therapy but no other maintenance medications. Patient did have blood work that was completed. Patient white blood cell count is normal. Patient does have a mildly elevated ESR at 22 high end of normal is 21. Patient 's LFTs and lipase within normal limits. Patient did have CT the abdomen pelvis was completed. Patient did receive pain meds, anti-medics, an IV fluids. Upon reassessment of the patient patient was feeling much improved and states that she could relax. I did speak with the radiologist says there was not a formal read. He stated that there was some mild distention to the loops of bowel as well as some inflammation of bowel wall thickening at the terminal ileum. Patient had no abscess or fluid collection. Stated that the patient's current CT was improved from priors. Upon reassessment patient was cleaning some mild pain. I did speak with GI application spec stated they could start some steroids as well as follow up in clinic tomorrow. However, upon reassessment the patient she was unwilling to attempt a by mouth challenge which point I spoke with the hospitalist who agreed to admit the patient for observation further evaluation and treatment. Medication Reconcilliation Current Medication List: was personally reviewed by me Blood Pressure Screening Patient's blood pressure: Normal blood pressure Consults Time Called: 2056 Consulting Physician: Rosetta Washington Returned Call: 2101 Discussed the patient's case with Stella Washington. The patient will be evaluated for further treatment and disposition. Impression Primary Impression: Abdominal pain Additional Impression: Crohn's colitis Scribe Attestation The scribe's documentation has been prepared under my direction and personally reviewed by me in its entirety. I confirm that the note above accurately reflects all work, treatment, procedures, and medical decision making performed by me. Departure Information Dispostion Being Evaluated By Hospitalist Referrals Kyung Parker M.D. (PCP) Patient Instructions My [facility] Problem Qualifiers Primary Impression: Abdominal pain Abdominal location: generalized Qualified Codes: R10.84 - Generalized abdominal pain Additional Impression: Crohn's colitis Digestive disease complication type: without complication Qualified Codes: K50.10 - Crohn's disease of large intestine without complications
[2017-09-10] MEDS ORDERED: OPTIRAY 320 IV PRN (18:30)
[2017-09-10 18:47] LABS: BASO % 0.2 %; BASO ABS # 0.02 K/uL (0-0.2); COMPLETE YES; HEMATOCRIT 44.1 % (37-47); IG% 0.3 %; LYMPH % 17.9 %; LYMPH ABS # 1.74 K/uL (1.2-3.4); MEAN CELL VOLUME 96.5 fL (80-100); MEAN CORPUSCULAR HEMOGLOBIN 32.8 pg (25-34); MONO % 4.1 %; NEUT % 77.5 %; PLATELET COUNT 232 K/uL (130-400); RED BLOOD COUNT 4.57 M/uL (4.2-5.4); WHITE BLOOD COUNT 9.73 K/uL (4.8-10.8)
[2017-09-10] MEDS ORDERED: PROMETHAZINE HCL INJ 12.5 MG in SODIUM CHLORIDE 0.9% 50ML 50 ML IV STA (19:03)
[2017-09-10] MEDS ORDERED: FERR1TAB23 PO (19:06)
[2017-09-10] MEDS ORDERED: ESTR1 PO (19:06)
[2017-09-10] MEDS ORDERED: FOLI1TAB7 PO (19:06)
[2017-09-10] MEDS ORDERED: PRED10TA PO (19:06)
[2017-09-10 19:07] LABS: ALT/SGPT 14 U/L (12-78); BLOOD UREA NITROGEN 13 mg/dl (7-18); BUN/CREATININE RATIO 18.1 (10-20); CALCIUM 9.3 mg/dl (8.5-10.1); CARBON DIOXIDE 25 mmol/L (21-32); CHLORIDE 103 mmol/L (98-107); CREATININE 0.69 mg/dl (0.60-1.20); GLUCOSE 139 mg/dl (70-99); POTASSIUM 3.7 mmol/L (3.5-5.1); SODIUM 138 mmol/L (136-145)
[2017-09-10 19:10] LABS: ALKALINE PHOSPHATASE 83 U/L (45-117); AST/SGOT 10 U/L (15-37)
--- NOTE | 2017-09-10 20:54 | DIAGNOSTIC IMAGING REPORT ---
ABD/PELVIS IV CONTRAST ONLY CT DOSE: 269.79 mGy.cm HISTORY: Abdominal pain. Crohn's disease. Lung bases are clear. h/o Frohn's, ab pain >est. in RLQ TECHNIQUE: Multiaxial CT images of the abdomen and pelvis were performed following the use of intravenous contrast. A dose lowering technique was utilized adhering to the principles of ALARA. COMPARISON STUDY: 07/06/2017 FINDINGS: Lung bases are clear. There is uniform throughout. Gallbladder is negative for distention. Kidneys and 8 uniformly. Spleen is unremarkable as is the pancreas. The distal and/or terminal ileum continues show wall thickening. The thickness of the wall as well as linear extent of the wall thickening appears to be in general similar as compared to the prior study. There is a changing caliber of the small bowel at the right anterior abdomen but this appears to be similar to perhaps somewhat less prominent as compared to the prior study. Appearance does suggest active Crohn's disease of this is perhaps at least slightly improved from the prior study. Colonic wall thickening and reactive distention is slightly improved. Minimal infiltrative change of the mesentery is stable to slightly improved with reactive skye change in the mid mesentery slightly diminished. No abscess or collection is appreciated. IMPRESSION: 1. Stable to slightly improved appearance to the right lower quadrant compared to the prior exam. 2. Small bowel wall thickening is considered stable to perhaps slightly diminished with the colonic distention stable to slightly diminished as well. 3. Infiltrative change of the mesentery with associated regional nodes stable to slightly improved. 4. No evidence for abscess or collection. 5. This study continues to suggest active Crohn's disease although overall this study is perhaps minimally improved compared to the prior exam. The above report was generated using voice recognition software. It may contain grammatical, syntax or spelling errors. Electronically signed by: Jose L Rutledge M.D. 09/10/2017 8:52 PM Dictated Date/Time: 09/10/2017 7:48 PM
[2017-09-10] MEDS ORDERED: METHYLPREDNISOLONE 125 MG VIAL IV STA (21:03)
[2017-09-10] MEDS ORDERED: THIAMINE HCL 100 MG/ML 2 ML VIAL IV STA (21:43)
[2017-09-10] MEDS ORDERED: GLUCOSE 10 TABS/TUBE PO PRN (21:45)
[2017-09-10] MEDS ORDERED: LORAZEPAM 2 MG/ML 1 ML VIAL IV PRN (21:45)
[2017-09-10] MEDS ORDERED: GLUCOSE 40% GEL 15 GM TUBE PO PRN (21:45)
[2017-09-10] MEDS ORDERED: MoRPHine SULFATE 4 MG/ML 1 ML CARP\\VIAL IV PRN (21:45)
[2017-09-10] MEDS ORDERED: DEXTROSE 50% 50 ML SYR IV PRN (21:45)
[2017-09-10] MEDS ORDERED: ONDANSETRON INJ 2 MG/ML 2 ML VIAL IV PRN (21:45)
[2017-09-10] MEDS ORDERED: GLUCAGON FOR INJ 1 MG VIAL SQ PRN (21:45)
[2017-09-10] MEDS ORDERED: AMITRIPTYLINE HCL 10 MG TAB PO STA (22:15)
[2017-09-10] MEDS ORDERED: DIVALPROEX 250 MG EXTENDED REL TAB PO STA (22:17)
[2017-09-10] MEDS ORDERED: INSULIN ASPART 100 UNITS/ML 3 ML PEN SC STA (22:17)
[2017-09-10] MEDS ORDERED: INSULIN GLARGINE SOLOSTAR 100 UNITS/ML 3 ML PEN SC STA (22:17)
[2017-09-10] MEDS ORDERED: TRAZODONE HCL 100 MG TAB PO STA (22:18)
[2017-09-10 22:27] VITALS: BP 92/61; PULSE 76; TEMP 36.8; O2SAT 96; Ht 160 cm; Wt 61.2 kg
[2017-09-10] MEDS ORDERED: NSS + 20MEQ KCL 1000ML 1,000 ML IV ONE (22:30)
[2017-09-10] MEDS ORDERED: MAGNESIUM SULFATE 1GM / D5W 1 GM in PREMIXED IN D5W 100 ML IV ONE (22:30)
[2017-09-10] MEDS ORDERED: LORAZEPAM 1 MG TAB PO ONE (22:30)
[2017-09-10] MEDS ORDERED: THIAMINE HCL INJ 100 MG in SYRINGE 9 ML IV ONE (22:30)
[2017-09-10 23:12] LABS: PROTHROMBIN TIME (PATIENT) 10.7 SECONDS (9.0-12.0)
--- NOTE | 2017-09-10 23:20 | HISTORY & PHYSICAL EXAMINATION ---
DATE OF ADMISSION: 09/10/2017 PRIMARY CARE PHYSICIAN: Dr. Parker. CHIEF COMPLAINT: Abdominal pain. HISTORY OF PRESENT ILLNESS: History obtained from patient and records. Medical history is significant for Crohn's disease , past tobacco and alcohol abuse, hyperlipidemia, mood disorder. Recent confinement June 2017 for Crohn's colitis flare. CAT scan showed progression of Crohn's colitis, element of stricturing disease. Patient transferred to [facility] for possible surgical opinion. Patient confined for 10 days. No surgery done. Started on TPN, prednisone taper. Patient comfortable at time of discharge to home. Subsequently started Remicade outpatient by [facility] specialist. Improved symptoms. Recent course of steroids last dose was last week. Last few days, the patient noted achy hypogastric discomfort, worsening, initially constipated. Patient saw her clinical quality assurance associate who recommended MiraLax. Loose stools noted since, 15 episodes a day, nonbloody, No fever, admits to some chills, some nausea, no vomiting. Intractable pain at the Emergency Room. MEDICAL HISTORY: As above. SURGERIES: Hysterectomy. HOME MEDICATIONS: Include albuterol, Depakote, Estrace, iron, Folvite, Ativan, Imodium, Claritin, Prilosec, Zoloft, trazodone, Effexor. ALLERGIES: NAPROXEN. FAMILY HISTORY: There is a family history of IBD. PERSONAL AND SOCIAL HISTORY: Past tobacco and alcohol abuse, disabled. REVIEW OF SYSTEMS: As per HPI, all other ROS negative. PHYSICAL EXAMINATION: VITAL SIGNS: Blood pressure noted to be 106/50, pulse rate noted to be 90, RR 20, temperature 37.1, sats 98 on room air. GENERAL: Noted to be anxious, uncomfortable, no respiratory distress. SKIN: Normal color, warm. HEENT: [place] palpebral conjuctivae. No ptosis, dry buccal mucosa. NECK: Supple. No tenderness. CHEST: Decreased breath sounds, no tenderness. CV: Regular rate and rhythm, palpable lower extremity pulses. ABDOMEN: Hypogastric, right-sided abdominal tenderness . No organomegaly EXTREMITIES: No edema, no tenderness, no gross deformities. NEUROLOGIC: Coherent. No gross focality except for some resting hand tremors. . LABS: Hemoglobin was noted to be 15, white blood cell count 9.7, platelets 232, ESR 22. Sodium 138 chloride 103, CO2 25, BUN 30, creatinine 0.6, glucose 139. LFTs and lipase are normal. CT abdomen and pelvis showed stable to slightly improved appearance compared to prior exam, small bowel thickening, colonic distention improved from previous, no abscess; active Crohn's disease. ASSESSMENT AND PLAN: 1. IBD flare-up. hx Crohn's disease on Remicade, recent steroid course No signs of systemic toxicity 2. Post laxative diarrhea rule out Clostridium difficile 3. Steroid-induced hyperglycemia rule out diabetes mellitus 4. mood disorder stable on medications 5. past tobacco and alcohol abuse. GMF Analgesia, Solu-Medrol. GI consult RE IBD flareup (Patient known to Dr. Alfonso.) Stool C. difficile Check hemoglobin A1c DVT prophylaxis Lovenox subQ. Full code. MTDD
[2017-09-10 23:27] LABS: MANUAL MICROSCOPIC REQUIRED? YES; URINE APPEARANCE SL CLOUDY (CLEAR); URINE BILIRUBIN NEG (NEG); URINE COLOR YELLOW; URINE NITRITE NEG (NEG); URINE PH 6.5 (4.5-7.5); URINE SPECIFIC GRAVITY <= 1.005 (1.000-1.030); UROBILINOGEN NEG (NEG)
[2017-09-10 23:31] LABS: REVIEW REQ? NO
[2017-09-10 23:41] LABS: URINE BACTERIA NEG (NEG); URINE RBC 0-4 /hpf (0-4); ZZUR CULT IF INDIC CLEAN CATCH NO
[2017-09-11] MEDS: TRAMADOL HCL 50 MG TAB PO PRN ×3 (03:04→18:48)
[2017-09-11] MEDS: INSULIN ASPART 100 UNITS/ML 3 ML PEN SC SCH ×4 (06:30→20:20)
[2017-09-11 06:34] LABS: ESTIMATED AVERAGE GLUCOSE 103 mg/dl; HA1C FLAG Normal (Normal)
[2017-09-11 06:37] LABS: COMPLETE YES; HEMATOCRIT 41.1 % (37-47); IG% 0.2 %; LYMPH % 17.3 %; LYMPH ABS # 0.96 K/uL (1.2-3.4); MEAN CELL VOLUME 97.4 fL (80-100); MEAN CORPUSCULAR HGB CONC 31.9 g/dl (32-36); MEAN PLATELET VOLUME 11.2 fL (7.4-10.4); MONO % 2.2 %; NEUT % 80.3 %; PLATELET COUNT 213 K/uL (130-400); RED BLOOD COUNT 4.22 M/uL (4.2-5.4); WHITE BLOOD COUNT 5.56 K/uL (4.8-10.8)
[2017-09-11 07:14] VITALS: BP 92/52; PULSE 66; TEMP 36.6; O2SAT 95
[2017-09-11 07:14] LABS: CALCIUM 8.7 mg/dl (8.5-10.1); CREATININE 0.48 mg/dl (0.60-1.20); MAGNESIUM 2.3 mg/dl (1.8-2.4); POTASSIUM 4.4 mmol/L (3.5-5.1)
[2017-09-11] MEDS: INSULIN GLARGINE SOLOSTAR 100 UNITS/ML 3 ML PEN SC SCH (07:41)
[2017-09-11] MEDS: RANITIDINE HCL 150 MG TAB PO SCH ×2 (07:44→20:20)
[2017-09-11] MEDS: ENOXAPARIN 30 MG/0.3 ML SYR SQ SCH (07:44)
[2017-09-11] MEDS: FERROUS SULFATE 325 MG TAB PO SCH (07:44)
[2017-09-11] MEDS: SERTRALINE HCL 100 MG TAB PO SCH ×2 (07:44→20:20)
[2017-09-11] MEDS: VENLAFAXINE HCL XR 150 MG CAPXR PO SCH ×2 (07:44→20:18)
[2017-09-11] MEDS: TRAZODONE HCL 100 MG TAB PO SCH ×2 (07:45→20:22)
[2017-09-11] MEDS: DIVALPROEX 250 MG EXTENDED REL TAB PO SCH ×3 (07:45→20:18)
[2017-09-11] MEDS: PANTOprazole SOD 40 MG TAB PO SCH (07:46)
[2017-09-11] MEDS ORDERED: METHYLPREDNISOLONE IV 20 MG in SYRINGE 0 ML IV SCH (08:00)
--- NOTE | 2017-09-11 09:41 | Gastrointestinal Consultation ---
Gastrointestinal Consultation Date of Consultation: Sep 11, 2017 Attending Physician: Dr. Willard Consulting Physician: Dr. Alfonso/CHIKI Pearce Reason for Consultation: Abdominal pain History of Present Illness Patient is a 51 year old female with a history of Crohn's ileocolitis hospitalized approximately two months ago due to worsening ileostenosing disease with subsequent transfer to [facility] in [place], [place]. She was not felt a surgical candidate at that time and was recommended to proceed with biologic therapy. Upon discharge, she was started on Remicade and has just completed the initial induction dosing schedule. She will now continue Remicade at 5 mg/kg IV every 8 weeks. She is also completing a Prednisone taper. Patient was just evaluated by me in the office 5 days ago. At that time, she was reporting improved abdominal pain symptoms although a persistent tenderness in the lower abdomen. She was also reporting constipation symptoms stating she was having difficulty initiating a bowel movement and going several days between bowel movements. I had recommended she start MiraLAX 17 g daily as needed. Patient did not take MiraLAX, however, stating "I have to use the share ride and it's hard for me to get to the store". She instead had used several [id number] stimulant laxatives that she had available to her at home. In doing so, she developed worsening abdominal pain and severe diarrhea passing 15 bowel movements. No bloody or melanotic stools. No fever or chills. Due to the worsening pain, she presented to the ER yesterday. On arrival, she was noted to be hemodynamically stable with a H&H of 15.0 and 44.1. There was no leukocytosis or electrolyte abnormalities. ESR was minimally elevated at 22. CT a/p with IV enhancement had demonstrated interval improvement in small bowel thickening as well as mesenteric lymphadenopathy. No abscess or collection was noted. Case was discussed with GI comparison shopper and recommendation was outpatient management. Patient was not agreeable to outpatient treatment and requested hospital admission for pain control. She is currently rating her pain as 4/10 in intensity in the right lower quadrant without radiation. No nausea or vomiting, no further diarrhea or other GI complaints. Patient is being prescribed both Tramadol and Morphine. Of note, she asks for pain medication at all office visits regardless of symptomatology. Past Medical/Surgical History Medical Problems: (1) Exacerbation of Crohn's disease Status: Acute Past Medical History: 1. Crohn's ileocolitis 2. Colon polyps 3. Internal hemorrhoids Past Surgical History: 1. Hysterectomy 2. Shoulder surgery 3. Complete colonoscopy Family History Negative for GI malignancy. Daughter with Crohn's disease. Social History Smoking Status: Current Every Day Smoker Alcohol Use: none Drug Use: none Marital Status: Occupation Status: disabled Allergies Coded Allergies: Naproxen (Verified Allergy, Severe, HIVES, SWELLING, 06/13/17) Current Medications Home Meds and Scripts Medications Dose Route/Sig Max Daily Dose Days Date Category Dose Instructions Prednisone 10 Mg Tab 10 Mg PO TAPER UD 09/10/17 Reported Folvite (Folic Acid) 1 Mg Tab 1 Mg PO DAILY 09/10/17 Reported Iron (Ferrous Sulfate) 325 Mg Tab 1 Tab PO DAILY 09/10/17 Reported Estrace (Estradiol) 1 Mg Tab 1 Mg PO UD 09/10/17 Reported TAKE 1 TAB DAILY FOR 21 DAYS, STOP FOR 7 DAYS, REPEAT Imodium (Loperamide HCl) 2 Mg Cap 2 Mg PO QID PRN 06/12/17 Reported Claritin (Loratadine) 10 Mg Tab 10 Mg PO DAILY PRN 06/12/17 Reported Ventolin Hfa (Albuterol) 200 Puffs/00596 Mcg Aers 2-4 Puffs INH Q6H PRN 06/12/17 Reported Trazodone (Trazodone HCl) 100 Mg Tab 100-150 Mg PO BID 06/12/17 Reported Venlafaxine Hcl Er (Venlafaxine Hcl) 150 Mg Tab 150 Mg PO BID 06/12/17 Reported Zantac (Ranitidine HCl) 150 Mg Tab 150 Mg PO BID 06/12/17 Reported Depakote Er (Divalproex Sodium) 250 Mg Tab 250 Mg PO TID 06/12/17 Reported Zoloft (Sertraline HCl) 100 Mg Tab 100 Mg PO BID 06/12/17 Reported Ativan (Lorazepam) 1 Mg Tab 1 Mg PO HS 06/12/17 Reported Prilosec (Omeprazole) 20 Mg Capcr 20 Mg PO QAM 06/12/17 Reported Amitriptyline HCl 10 Mg Tab 10 Mg PO HS 06/12/17 Reported Review of Systems Constitutional: + see HPI Eyes: No eye pain, No redness ENT: No problem reported Respiratory: No problem reported Cardiac: No problem reported Abdomen: + see HPI Musculoskeletal: + joint pain (right hip reportedly from a fall one week ago) Female : No problem reported Neuro: + numbness/tingling (down right leg) Psych: No problem reported Skin: No problem reported Physical Exam Date Time Temp Pulse Resp B/P (MAP) Pulse Ox O2 Delivery O2 Flow Rate FiO2 09/11/17 08:00 Room Air 09/11/17 07:14 36.6 66 18 92/52 (65) 95 Room Air 09/11/17 00:00 Room Air 09/10/17 22:27 36.8 76 18 92/61 96 Room Air 09/10/17 22:03 20 95 09/10/17 21:30 77 20 95/70 95 Room Air 09/10/17 21:00 75 20 112/72 96 Room Air 09/10/17 19:52 83 18 111/78 93 Room Air 09/10/17 19:19 93 09/10/17 19:14 90 20 110/83 93 Room Air 09/10/17 18:49 98 17 108/62 93 Room Air 09/10/17 18:02 37.1 123 20 106/35 96 Room Air General Appearance: WD/WN, no apparent distress Eyes: EOMI ENT: hearing grossly normal Neck: supple Respiratory/Chest: lungs clear, normal breath sounds, no respiratory distress Cardiovascular: regular rate, rhythm, no gallop, no murmur Abdomen: normal bowel sounds, soft, + tenderness (mild RLQ ) Extremities: no pedal edema Neurologic/Psych: alert, normal mood/affect, oriented x 3 Skin: warm/dry Laboratory Results Last 24 Hours Test 09/10/17 18:38 09/10/17 21:30 09/10/17 22:38 09/10/17 23:10 White Blood Count 9.73 K/uL Red Blood Count 4.57 M/uL Hemoglobin 15.0 g/dL Hematocrit 44.1 % Mean Corpuscular Volume 96.5 fL Mean Corpuscular Hemoglobin 32.8 pg Mean Corpuscular Hemoglobin Concent 34.0 g/dl Platelet Count 232 K/uL Mean Platelet Volume 11.0 fL Neutrophils (%) (Auto) 77.5 % Lymphocytes (%) (Auto) 17.9 % Monocytes (%) (Auto) 4.1 % Eosinophils (%) (Auto) 0.0 % Basophils (%) (Auto) 0.2 % Neutrophils # (Auto) 7.54 K/uL Lymphocytes # (Auto) 1.74 K/uL Monocytes # (Auto) 0.40 K/uL Eosinophils # (Auto) 0.00 K/uL Basophils # (Auto) 0.02 K/uL RDW Standard Deviation 44.8 fL RDW Coefficient of Variation 12.8 % Immature Granulocyte % (Auto) 0.3 % Immature Granulocyte # (Auto) 0.03 K/uL Erythrocyte Sedimentation Rate 22 mm/hr Prothrombin Time 10.7 SECONDS Prothromb Time International Ratio 1.0 Sodium Level 138 mmol/L Potassium Level 3.7 mmol/L Chloride Level 103 mmol/L Carbon Dioxide Level 25 mmol/L Anion Gap 10.0 mmol/L Blood Urea Nitrogen 13 mg/dl Creatinine 0.69 mg/dl Est Creatinine Clear Calc Drug Dose 78.9 ml/min Estimated GFR () 116.0 Estimated GFR (Non- 100.1 BUN/Creatinine Ratio 18.1 Random Glucose 139 mg/dl Estimated Average Glucose 103 mg/dl Hemoglobin A1c 5.2 % Calcium Level 9.3 mg/dl Magnesium Level 1.7 mg/dl Total Bilirubin 0.3 mg/dl Direct Bilirubin < 0.1 mg/dl Aspartate Amino Transf (AST/SGOT) 10 U/L Alanine Aminotransferase (ALT/SGPT) 14 U/L Alkaline Phosphatase 83 U/L Total Protein 7.6 gm/dl Albumin 3.6 gm/dl Lipase 64 U/L Valproic Acid (Depakene) Level 37 mcg/ml Bedside Glucose 92 mg/dl Urine Color YELLOW Urine Appearance SL CLOUDY Urine pH 6.5 Urine Specific [place] <= 1.005 Urine Protein TRACE Urine Glucose (UA) NEG Urine Ketones TRACE Urine Occult Blood NEG Urine Nitrite NEG Urine Bilirubin NEG Urine Urobilinogen NEG Urine Leukocyte Esterase NEG Urine RBC 0-4 /hpf Urine WBC 1-5 /hpf Urine Epithelial Cells >30 /lpf Urine Calcium Oxalate Crystals PRESENT Urine Bacteria NEG Test 09/11/17 06:01 09/11/17 07:16 White Blood Count 5.56 K/uL Red Blood Count 4.22 M/uL Hemoglobin 13.1 g/dL Hematocrit 41.1 % Mean Corpuscular Volume 97.4 fL Mean Corpuscular Hemoglobin 31.0 pg Mean Corpuscular Hemoglobin Concent 31.9 g/dl Platelet Count 213 K/uL Mean Platelet Volume 11.2 fL Neutrophils (%) (Auto) 80.3 % Lymphocytes (%) (Auto) 17.3 % Monocytes (%) (Auto) 2.2 % Eosinophils (%) (Auto) 0.0 % Basophils (%) (Auto) 0.0 % Neutrophils # (Auto) 4.47 K/uL Lymphocytes # (Auto) 0.96 K/uL Monocytes # (Auto) 0.12 K/uL Eosinophils # (Auto) 0.00 K/uL Basophils # (Auto) 0.00 K/uL RDW Standard Deviation 46.0 fL RDW Coefficient of Variation 13.0 % Immature Granulocyte % (Auto) 0.2 % Immature Granulocyte # (Auto) 0.01 K/uL Sodium Level 138 mmol/L Potassium Level 4.4 mmol/L Chloride Level 105 mmol/L Carbon Dioxide Level 25 mmol/L Anion Gap 8.0 mmol/L Blood Urea Nitrogen 12 mg/dl Creatinine 0.48 mg/dl Est Creatinine Clear Calc Drug Dose 113.4 ml/min Estimated GFR () 130.7 Estimated GFR (Non- 112.8 BUN/Creatinine Ratio 24.0 Random Glucose 139 mg/dl Calcium Level 8.7 mg/dl Magnesium Level 2.3 mg/dl Bedside Glucose 122 mg/dl Impression Patient is a 51 year old female with a history of Crohn's ileocolitis on Remicade therapy with worsening RLQ pain and diarrhea following stimulant laxative use and CT imaging demonstrating improvement in bowel wall thickening and lymphadenopathy. Plan 1. Suspect diarrhea and abdominal pain is worsened by use of stimulant laxatives. 2. Requests pain medication at all visits. Discussed with Dr. Alfonso. Recommend discontinuation of opioid analgesics and consider pain management consultation for management of chronic pain. 3. Again reinforced tobacco cessation as this can worsen Crohn's disease. 4. Recommend dose reduction of Solu-Medrol to 20 mg IV BID. 5. Continue outpatient Remicade therapy at 5 mg/kg IV every 8 weeks. 6. Supportive medical management per primary team. Agree with CHIKI Pearce as above Abd: Soft, Tender RLQ, ND, +BS Continue current therapy Followup in our office as outpatient
--- NOTE | 2017-09-11 11:43 | Progress Note ---
Internal Med Progress Note Date of Service: Sep 11, 2017. Provider Documentation: SUBJECTIVE: Seen and examined at bedside States having mild nausea Reports spasmodic abdominal pain Diarrhea resolved Denies chest pain, SOB, dizziness Reports R hip/leg pain since fall 1 week ago OBJECTIVE: Vital Signs-as noted below Physical Exam: General Appearance:Moderately built and nourished, no apparent distress Head: normocephalic, Atraumatic Eyes: normal inspection, EOMI, PERRL Neck: supple, Trachea midline Respiratory/Chest: Normal breath sounds, CTA Cardiovascular: S1, S2, No murmur Abdomen/GI:Soft, mild RLQ tender, Bowel sounds present Extremities/Musculoskelatal:Mild tenderness of R SI joint and leg, no edema Neurologic/Psych:AAOX3, grossly no focal neurological deficits Skin: normal color, warm Lab data as noted below. ASSESSMENT & PLAN: Abdominal Pain/diarrhea: following stimulant laxative use CT ABD: shows improvement in bowel wall thickening and lymphadenopathy. R/O C.diff: pending Continue Solu-Medrol to 20 mg IV BID Continue outpatient Remicade therapy at 5 mg/kg IV every 8 weeks Counselled to quit smoking as it can worsen Crohn's disease. Minimize pain meds use Appreciate GI input Will consider pain management if necessary Hip/Leg Pain: S/P Fall 1 week ago Will get X ray to r/o fractures Hyperglycemia: Likely secondary to recent steroid use A1C:5.2 monitor Hypomagnesemia: Resolved Monitor Mood disorder: Continue home meds DVT px: Lovenox subQ. Code Status Full code Vital Signs: Date Time Temp Pulse Resp B/P (MAP) Pulse Ox O2 Delivery O2 Flow Rate FiO2 09/11/17 08:00 Room Air 09/11/17 07:14 36.6 66 18 92/52 (65) 95 Room Air 09/11/17 00:00 Room Air 09/10/17 22:27 36.8 76 18 92/61 96 Room Air 09/10/17 22:03 20 95 09/10/17 21:30 77 20 95/70 95 Room Air 09/10/17 21:00 75 20 112/72 96 Room Air 09/10/17 19:52 83 18 111/78 93 Room Air 09/10/17 19:19 93 09/10/17 19:14 90 20 110/83 93 Room Air 09/10/17 18:49 98 17 108/62 93 Room Air 09/10/17 18:02 37.1 123 20 106/35 96 Room Air Lab Results: Results Past 24 Hours Test 09/10/17 18:38 09/10/17 21:30 09/10/17 22:38 09/10/17 23:10 Range/Units White Blood Count 9.73 4.8-10.8 K/uL Red Blood Count 4.57 4.2-5.4 M/uL Hemoglobin 15.0 12.0-16.0 g/dL Hematocrit 44.1 37-47 % Mean Corpuscular Volume 96.5 80-100 fL Mean Corpuscular Hemoglobin 32.8 25-34 pg Mean Corpuscular Hemoglobin Concent 34.0 32-36 g/dl Platelet Count 232 130-400 K/uL Mean Platelet Volume 11.0 7.4-10.4 fL Neutrophils (%) (Auto) 77.5 % Lymphocytes (%) (Auto) 17.9 % Monocytes (%) (Auto) 4.1 % Eosinophils (%) (Auto) 0.0 % Basophils (%) (Auto) 0.2 % Neutrophils # (Auto) 7.54 1.4-6.5 K/uL Lymphocytes # (Auto) 1.74 1.2-3.4 K/uL Monocytes # (Auto) 0.40 0.11-0.59 K/uL Eosinophils # (Auto) 0.00 0-0.5 K/uL Basophils # (Auto) 0.02 0-0.2 K/uL RDW Standard Deviation 44.8 36.4-46.3 fL RDW Coefficient of Variation 12.8 11.5-14.5 % Immature Granulocyte % (Auto) 0.3 % Immature Granulocyte # (Auto) 0.03 0.00-0.02 K/uL Erythrocyte Sedimentation Rate 22 0-21 mm/hr Prothrombin Time 10.7 9.0-12.0 SECONDS Prothromb Time International Ratio 1.0 0.9-1.1 Sodium Level 138 136-145 mmol/L Potassium Level 3.7 3.5-5.1 mmol/L Chloride Level 103 98-107 mmol/L Carbon Dioxide Level 25 21-32 mmol/L Anion Gap 10.0 3-11 mmol/L Blood Urea Nitrogen 13 7-18 mg/dl Creatinine 0.69 0.60-1.20 mg/dl Est Creatinine Clear Calc Drug Dose 78.9 ml/min Estimated GFR () 116.0 Estimated GFR (Non- 100.1 BUN/Creatinine Ratio 18.1 10-20 Random Glucose 139 70-99 mg/dl Estimated Average Glucose 103 mg/dl Hemoglobin A1c 5.2 4.5-5.6 % Calcium Level 9.3 8.5-10.1 mg/dl Magnesium Level 1.7 1.8-2.4 mg/dl Total Bilirubin 0.3 0.2-1 mg/dl Direct Bilirubin < 0.1 0-0.2 mg/dl Aspartate Amino Transf (AST/SGOT) 10 15-37 U/L Alanine Aminotransferase (ALT/SGPT) 14 12-78 U/L Alkaline Phosphatase 83 45-117 U/L Total Protein 7.6 6.4-8.2 gm/dl Albumin 3.6 3.4-5.0 gm/dl Lipase 64 73-393 U/L Valproic Acid (Depakene) Level 37 50-100 mcg/ml Bedside Glucose 92 70-90 mg/dl Urine Color YELLOW Urine Appearance SL CLOUDY CLEAR Urine pH 6.5 4.5-7.5 Urine Specific [place] <= 1.005 1.000-1.030 Urine Protein TRACE NEG Urine Glucose (UA) NEG NEG Urine Ketones TRACE NEG Urine Occult Blood NEG NEG Urine Nitrite NEG NEG Urine Bilirubin NEG NEG Urine Urobilinogen NEG NEG Urine Leukocyte Esterase NEG NEG Urine RBC 0-4 0-4 /hpf Urine WBC 1-5 0-5 /hpf Urine Epithelial Cells >30 0-5 /lpf Urine Calcium Oxalate Crystals PRESENT NONE PRSENT Urine Bacteria NEG NEG Test 09/11/17 06:01 09/11/17 07:16 Range/Units White Blood Count 5.56 4.8-10.8 K/uL Red Blood Count 4.22 4.2-5.4 M/uL Hemoglobin 13.1 12.0-16.0 g/dL Hematocrit 41.1 37-47 % Mean Corpuscular Volume 97.4 80-100 fL Mean Corpuscular Hemoglobin 31.0 25-34 pg Mean Corpuscular Hemoglobin Concent 31.9 32-36 g/dl Platelet Count 213 130-400 K/uL Mean Platelet Volume 11.2 7.4-10.4 fL Neutrophils (%) (Auto) 80.3 % Lymphocytes (%) (Auto) 17.3 % Monocytes (%) (Auto) 2.2 % Eosinophils (%) (Auto) 0.0 % Basophils (%) (Auto) 0.0 % Neutrophils # (Auto) 4.47 1.4-6.5 K/uL Lymphocytes # (Auto) 0.96 1.2-3.4 K/uL Monocytes # (Auto) 0.12 0.11-0.59 K/uL Eosinophils # (Auto) 0.00 0-0.5 K/uL Basophils # (Auto) 0.00 0-0.2 K/uL RDW Standard Deviation 46.0 36.4-46.3 fL RDW Coefficient of Variation 13.0 11.5-14.5 % Immature Granulocyte % (Auto) 0.2 % Immature Granulocyte # (Auto) 0.01 0.00-0.02 K/uL Sodium Level 138 136-145 mmol/L Potassium Level 4.4 3.5-5.1 mmol/L Chloride Level 105 98-107 mmol/L Carbon Dioxide Level 25 21-32 mmol/L Anion Gap 8.0 3-11 mmol/L Blood Urea Nitrogen 12 7-18 mg/dl Creatinine 0.48 0.60-1.20 mg/dl Est Creatinine Clear Calc Drug Dose 113.4 ml/min Estimated GFR () 130.7 Estimated GFR (Non- 112.8 BUN/Creatinine Ratio 24.0 10-20 Random Glucose 139 70-99 mg/dl Calcium Level 8.7 8.5-10.1 mg/dl Magnesium Level 2.3 1.8-2.4 mg/dl Bedside Glucose 122 70-90 mg/dl
--- NOTE | 2017-09-11 13:58 | DIAGNOSTIC IMAGING REPORT ---
R TIBIA/FIBULA 2 VIEWS ROUTINE, R PELVIS/UNILATERAL HIP 2-3VIEWS, R FEMUR 2 VIEWS ROUTINE HISTORY: 51 years-old Female Leg Pain acute pelvic and right lower extremity pain COMPARISON: CT 09/10/2017 TECHNIQUE: 2 views of the right femur, 2 views of the right tibia and fibula, AP view of the pelvis with 2 views of the right hip FINDINGS: PELVIS/RIGHT HIP: Mild degenerative changes of the bilateral hips. No acute fracture, or dislocation identified. Bones are mildly demineralized. FEMUR: No acute fracture or dislocation. Mild tricompartmental osteoarthritis about the knee. Soft tissues are unremarkable. No large joint effusion identified. TIBIA/FIBULA: No acute fracture or dislocation. Negative for opaque foreign body. IMPRESSION: 1. No acute fracture or dislocation of the pelvis, right hip, femur, tibia or fibula. 2. Osteopenia with mild bilateral hip and right knee osteoarthritis. The above report was generated using voice recognition software. It may contain grammatical, syntax or spelling errors. Electronically signed by: Meng Alonso M.D. 09/11/2017 1:56 PM Dictated Date/Time: 09/11/2017 1:54 PM
[2017-09-11 15:05] VITALS: BP 104/69; PULSE 72; TEMP 36.7; O2SAT 94
[2017-09-11] MEDS: METHYLPREDNISOLONE IV 20 MG in SYRINGE 0 ML IV SCH (20:17)
[2017-09-11] MEDS: AMITRIPTYLINE HCL 10 MG TAB PO SCH (20:17)
[2017-09-11] MEDS: LORAZEPAM 1 MG TAB PO SCH (20:24)
[2017-09-12 00:06] VITALS: BP 96/63; PULSE 75; TEMP 36.6; O2SAT 95
[2017-09-12] MEDS: INSULIN ASPART 100 UNITS/ML 3 ML PEN SC SCH ×4 (06:30→21:00)
[2017-09-12 06:45] LABS: BUN/CREATININE RATIO 8.9 (10-20); CALCIUM 8.6 mg/dl (8.5-10.1); CREATININE 0.48 mg/dl (0.60-1.20); POTASSIUM 3.9 mmol/L (3.5-5.1)
[2017-09-12 07:34] VITALS: BP 93/57; PULSE 71; TEMP 36.9; O2SAT 96
[2017-09-12] MEDS: INSULIN GLARGINE SOLOSTAR 100 UNITS/ML 3 ML PEN SC SCH (07:59)
[2017-09-12] MEDS: MoRPHine SULFATE 2 MG/ML CARP IV PRN ×4 (08:19→22:27)
[2017-09-12] MEDS: METHYLPREDNISOLONE IV 20 MG in SYRINGE 0 ML IV SCH ×2 (08:19→21:02)
[2017-09-12] MEDS: DIVALPROEX 250 MG EXTENDED REL TAB PO SCH ×3 (08:20→21:03)
[2017-09-12] MEDS: SERTRALINE HCL 100 MG TAB PO SCH ×2 (08:20→21:03)
[2017-09-12] MEDS: RANITIDINE HCL 150 MG TAB PO SCH ×2 (08:20→21:02)
[2017-09-12] MEDS: TRAZODONE HCL 100 MG TAB PO SCH ×2 (08:20→21:02)
[2017-09-12] MEDS: VENLAFAXINE HCL XR 150 MG CAPXR PO SCH ×2 (08:20→21:03)
[2017-09-12] MEDS: FERROUS SULFATE 325 MG TAB PO SCH (08:20)
[2017-09-12] MEDS: ENOXAPARIN 30 MG/0.3 ML SYR SQ SCH (08:21)
[2017-09-12] MEDS: PANTOprazole SOD 40 MG TAB PO SCH (08:21)
--- NOTE | 2017-09-12 09:35 | Gastroenterology Progress Note ---
Progress Note Date of Service: Sep 12, 2017 Subjective Pt evaluation today including: conversation w/ patient, physical exam, chart review, review of studies, review of inpatient medication list Patient reports increased abdominal pain this morning in the lower abdomen. She rates her pain as 6/10 at present. No diarrhea, nausea or vomiting, abdominal firmness or fever/chills. She is tolerating a clear liquid diet. Continues IV Solu-Medrol 40 mg IV BID. Review of Systems Constitutional: + see HPI Respiratory: No see HPI Cardiac: No see HPI Abdomen: + see HPI Medications Current Inpatient Medications Medications (Trade) Dose Ordered Sig/Ida Route Start Time Stop Time Status Last Admin Dose Admin Ioversol (Optiray 320) 100 ml UD PRN IV 09/10/17 18:30 09/14/17 18:29 Enoxaparin Sodium (Lovenox Inj) 30 mg Q24H SQ 09/11/17 09:00 10/11/17 08:59 09/12/17 08:21 30 MG Acetaminophen (Tylenol Tab) 650 mg Q4H PRN PO 09/10/17 21:45 10/10/17 21:44 Insulin Aspart (novoLOG ASPART) SLIDING SCALE If C... ACHS SC 09/11/17 06:30 10/11/17 06:59 Glucose (Glucose 40% Gel) 15-30 GRAMS 15 GRAMS... UD PRN PO 09/10/17 21:45 10/10/17 21:44 Glucose (Glucose Chew Tab) 4-8 Tablets 4 Tabl... UD PRN PO 09/10/17 21:45 10/10/17 21:44 Dextrose (Dextrose 50% 50ML Syringe) 25-50ML OF 50% DW IV FOR... UD PRN IV 09/10/17 21:45 10/10/17 21:44 Glucagon (Glucagon Inj) 1 mg UD PRN SQ 09/10/17 21:45 10/10/17 21:44 Insulin Glargine (Lantus Solostar Pen) 5 units DAILY SC 09/11/17 09:00 10/11/17 08:59 09/12/17 07:59 5 UNITS Ondansetron HCl (Zofran Inj) 4 mg Q6H PRN IV 09/10/17 21:45 10/10/17 21:44 Lorazepam (Ativan Inj) 0.5 mg Q4H PRN IV 09/10/17 21:45 10/10/17 21:44 Amitriptyline HCl (Elavil Tab) 10 mg HS PO 09/11/17 21:00 10/11/17 20:59 09/11/17 20:17 10 MG Divalproex Sodium (Depakote Extended Rel Tab) 250 mg TID PO 09/11/17 09:00 10/11/17 08:59 09/12/17 08:20 250 MG Folic Acid (Folvite Tab) 1 mg DAILY PO 09/11/17 09:00 10/11/17 08:59 09/12/17 08:20 1 MG Lorazepam (Ativan Tab) 1 mg HS PO 09/11/17 21:00 10/11/17 20:59 09/11/17 20:24 1 MG Ranitidine HCl (zANTac TAB) 150 mg BID PO 09/11/17 09:00 10/11/17 08:59 09/12/17 08:20 150 MG Sertraline HCl (Zoloft Tab) 100 mg BID PO 09/11/17 09:00 10/11/17 08:59 09/12/17 08:20 100 MG Trazodone HCl (Desyrel Tab) 100 mg BID PO 09/11/17 09:00 10/11/17 08:59 09/11/17 20:22 100 MG Venlafaxine HCl (effeXOR EXTENDED REL CAP) 150 mg BID PO 09/11/17 09:00 10/11/17 08:59 09/12/17 08:20 150 MG Ferrous Sulfate (Feosol Tab) 325 mg DAILY PO 09/11/17 09:00 10/11/17 08:59 09/12/17 08:20 325 MG Pantoprazole Sodium (Protonix Tab) 40 mg QAM PO 09/11/17 09:00 10/11/17 08:59 09/12/17 08:21 40 MG Tramadol HCl (Ultram Tab) not relieved by tylenol @ Q6H PRN PO 09/10/17 21:45 10/10/17 21:44 09/11/17 18:48 50 MG Methylprednisolone Sodium Succinate 20 mg/Syringe 0.32 ml @ 1.5 mls/min BID IV 09/11/17 21:00 10/11/17 07:59 09/12/17 08:19 1.5 MLS/MIN Morphine Sulfate (MoRPHine SULFATE INJ) 2 mg Q4H PRN IV 09/11/17 11:45 09/24/17 21:44 09/12/17 08:19 2 MG Objective Vital Signs Date Time Temp Pulse Resp B/P (MAP) Pulse Ox O2 Delivery O2 Flow Rate FiO2 09/12/17 07:34 36.9 71 22 93/57 (69) 96 Room Air 09/12/17 00:06 36.6 75 20 96/63 (74) 95 Room Air 09/12/17 00:00 Room Air 09/11/17 16:00 Room Air 09/11/17 15:05 36.7 72 18 104/69 (81) 94 Room Air Physical Exam General Appearance: no apparent distress Eyes: EOMI Neck: supple Respiratory/Chest: lungs clear, normal breath sounds, no respiratory distress Cardiovascular: regular rate, rhythm Abdomen: normal bowel sounds, soft, + tenderness (lower abdomen. no guarding or rigidity) Extremities: no pedal edema Neurologic/Psych: alert, normal mood/affect, oriented x 3 Skin: warm/dry Laboratory Results Last 24 Hours Test 09/11/17 11:41 09/11/17 15:38 09/11/17 20:03 09/12/17 05:41 Bedside Glucose 143 mg/dl 97 mg/dl 99 mg/dl Sodium Level 143 mmol/L Potassium Level 3.9 mmol/L Chloride Level 108 mmol/L Carbon Dioxide Level 27 mmol/L Anion Gap 8.0 mmol/L Blood Urea Nitrogen 4 mg/dl Creatinine 0.48 mg/dl Est Creatinine Clear Calc Drug Dose 113.4 ml/min Estimated GFR () 130.7 Estimated GFR (Non- 112.8 BUN/Creatinine Ratio 8.9 Random Glucose 123 mg/dl Calcium Level 8.6 mg/dl Magnesium Level 2.0 mg/dl Test 09/12/17 07:44 Bedside Glucose 92 mg/dl Assessment and Plan Patient is a 51 year old female with a history of Crohn's ileocolitis on Remicade therapy with worsening RLQ pain and diarrhea following stimulant laxative use and CT imaging demonstrating improvement in bowel wall thickening and lymphadenopathy. 1. Consider dietary advancement to soft diet. 2. Minimize use of opioid analgesics as these decrease GI motility. 3. Continue Solu-Medrol to 20 mg IV BID. Start Prednisone taper at 40 mg daily decreasing by 5 mg weekly upon discharge. 5. Continue outpatient Remicade therapy at 5 mg/kg IV every 8 weeks. 6. Outpatient GI follow up upon discharge. Agree with CHIKI Pearce as above Abd: Soft, Tender LLQ, ND, +BS Continue current therapy Advance diet as tolerated
[2017-09-12 16:00] VITALS: BP 109/70; PULSE 68; TEMP 36.3; O2SAT 95
[2017-09-12 16:10] VITALS: O2SAT 95
[2017-09-12] MEDS: TRAMADOL HCL 50 MG TAB PO PRN (16:19)
[2017-09-12] MEDS: LORAZEPAM 1 MG TAB PO SCH (21:01)
[2017-09-12] MEDS: AMITRIPTYLINE HCL 10 MG TAB PO SCH (21:03)
--- NOTE | 2017-09-12 22:16 | Progress Note ---
Medicine Progress Note Date & Time of Visit: Sep 12, 2017 at 14:39. Subjective 51 yo F with worsening abdominal pain c/w Chron's flare. -tolerating some clears. -denies nausea and vomiting -pain is slowly improving on the steroids since admission Objective Last 8 Hrs Date Time Temp Pulse Resp B/P (MAP) Pulse Ox O2 Delivery O2 Flow Rate FiO2 09/12/17 12:00 Room Air 09/12/17 08:00 Room Air 09/12/17 07:34 36.9 71 22 93/57 (69) 96 Room Air Physical Exam: GEN: WNWD, in no acute distress, alert and appropriate HEENT: NC/AT, PERRL, normal sclerae CARDIO: reg rate, S1/2 heard without m/g/r LUNGS: CTA bilaterally, no crackles, rales or wheezes, good diaphragmatic excursion ABD: soft, generalized TTP, non-distended, no rebound or guarding, +BS EXTREMITY: RP and DP palpable 2+ bilat, no LE swelling or edema, extremities are warm and well-perfused NEURO: CN 2-12 grossly intact MUSC: moves around the bed with ease, no gross focal deficits SKIN: warm and dry, mild circumferential erythema area on posterior upper R thigh-improved from purple line of demarcation outlining it. Laboratory Results: 09/11/17 06:01 Red Blood Count 4.22, Mean Corpuscular Volume 97.4, Mean Corpuscular Hemoglobin 31.0, Mean Corpuscular Hemoglobin Concent 31.9, Mean Platelet Volume 11.2, Neutrophils (%) (Auto) 80.3, Lymphocytes (%) (Auto) 17.3, Monocytes (%) (Auto) 2.2, Eosinophils (%) (Auto) 0.0, Basophils (%) (Auto) 0.0, Neutrophils # (Auto) 4.47, Lymphocytes # (Auto) 0.96, Monocytes # (Auto) 0.12, Eosinophils # (Auto) 0.00, Basophils # (Auto) 0.00 09/12/17 05:41 Test 09/10/17 18:38 09/10/17 21:30 09/10/17 23:10 09/11/17 06:01 Erythrocyte Sedimentation Rate 22 mm/hr (0-21) Prothrombin Time 10.7 SECONDS (9.0-12.0) Prothromb Time International Ratio 1.0 (0.9-1.1) Estimated Average Glucose 103 mg/dl Hemoglobin A1c 5.2 % (4.5-5.6) Total Bilirubin 0.3 mg/dl (0.2-1) Direct Bilirubin < 0.1 mg/dl (0-0.2) Aspartate Amino Transf (AST/SGOT) 10 U/L (15-37) Alanine Aminotransferase (ALT/SGPT) 14 U/L (12-78) Alkaline Phosphatase 83 U/L (45-117) Total Protein 7.6 gm/dl (6.4-8.2) Albumin 3.6 gm/dl (3.4-5.0) Lipase 64 U/L (73-393) Valproic Acid (Depakene) Level 37 mcg/ml (50-100) Urine Color YELLOW Urine Appearance SL CLOUDY (CLEAR) Urine pH 6.5 (4.5-7.5) Urine Specific [place] <= 1.005 (1.000-1.030) Urine Protein TRACE (NEG) Urine Glucose (UA) NEG (NEG) Urine Ketones TRACE (NEG) Urine Occult Blood NEG (NEG) Urine Nitrite NEG (NEG) Urine Bilirubin NEG (NEG) Urine Urobilinogen NEG (NEG) Urine Leukocyte Esterase NEG (NEG) Urine RBC 0-4 /hpf (0-4) Urine WBC 1-5 /hpf (0-5) Urine Epithelial Cells >30 /lpf (0-5) Urine Calcium Oxalate Crystals PRESENT (NONE PRSENT) Urine Bacteria NEG (NEG) White Blood Count 5.56 K/uL (4.8-10.8) Red Blood Count 4.22 M/uL (4.2-5.4) Hemoglobin 13.1 g/dL (12.0-16.0) Hematocrit 41.1 % (37-47) Mean Corpuscular Volume 97.4 fL (80-100) Mean Corpuscular Hemoglobin 31.0 pg (25-34) Mean Corpuscular Hemoglobin Concent 31.9 g/dl (32-36) Platelet Count 213 K/uL (130-400) Mean Platelet Volume 11.2 fL (7.4-10.4) Neutrophils (%) (Auto) 80.3 % Lymphocytes (%) (Auto) 17.3 % Monocytes (%) (Auto) 2.2 % Eosinophils (%) (Auto) 0.0 % Basophils (%) (Auto) 0.0 % Neutrophils # (Auto) 4.47 K/uL (1.4-6.5) Lymphocytes # (Auto) 0.96 K/uL (1.2-3.4) Monocytes # (Auto) 0.12 K/uL (0.11-0.59) Eosinophils # (Auto) 0.00 K/uL (0-0.5) Basophils # (Auto) 0.00 K/uL (0-0.2) RDW Standard Deviation 46.0 fL (36.4-46.3) RDW Coefficient of Variation 13.0 % (11.5-14.5) Immature Granulocyte % (Auto) 0.2 % Immature Granulocyte # (Auto) 0.01 K/uL (0.00-0.02) Test 09/12/17 05:41 09/12/17 19:58 Anion Gap 8.0 mmol/L (3-11) Est Creatinine Clear Calc Drug Dose 113.4 ml/min Estimated GFR () 130.7 Estimated GFR (Non- 112.8 BUN/Creatinine Ratio 8.9 (10-20) Calcium Level 8.6 mg/dl (8.5-10.1) Magnesium Level 2.0 mg/dl (1.8-2.4) Bedside Glucose 117 mg/dl (70-90) Last 24 Hours Test 09/11/17 15:38 09/11/17 20:03 09/12/17 05:41 09/12/17 07:44 Bedside Glucose 97 mg/dl 99 mg/dl 92 mg/dl Sodium Level 143 mmol/L Potassium Level 3.9 mmol/L Chloride Level 108 mmol/L Carbon Dioxide Level 27 mmol/L Anion Gap 8.0 mmol/L Blood Urea Nitrogen 4 mg/dl Creatinine 0.48 mg/dl Est Creatinine Clear Calc Drug Dose 113.4 ml/min Estimated GFR () 130.7 Estimated GFR (Non- 112.8 BUN/Creatinine Ratio 8.9 Random Glucose 123 mg/dl Calcium Level 8.6 mg/dl Magnesium Level 2.0 mg/dl Test 09/12/17 11:46 Bedside Glucose 94 mg/dl Assessment & Plan 51 yo F with worsening abdominal pain c/w Chron's flare. 1. Abdominal pain and diarrhea following laxative use. CT a/p with ileitis and colitis. Clinical picture consistent with flare of Chron's. GI consulted and rec Solumedrol IV BID at this time with continued REmicaide as outpatient. Pt counseled to quit smoking as this may worsen the disease. Minimize pain meds. Adjust diet per GI recs. 2. R hip and leg pain s/p fall-pt is ambulatory despite some discomfort. Xrays reviewed and reveal no fracture or dislocation. OA is present. No pain meds required at this time. Offered her a heating pad and she declined at this time. 3. Mood disorder-cont Elavil 10 qHS, Lorazepam, Sertraline, Trazodone and Effexor per home med regimen. DVT px: Lovenox subQ. Full Code Dispo-to home when pain improved and patient is tolerating PO. Shanice Evangelista DO [facility] Hospitalist Consultants: [facility]. Current Inpatient Medications: Current Inpatient Medications Medications (Trade) Dose Ordered Sig/Ida Route Start Time Stop Time Status Last Admin Dose Admin Ioversol (Optiray 320) 100 ml UD PRN IV 09/10/17 18:30 09/14/17 18:29 Enoxaparin Sodium (Lovenox Inj) 30 mg Q24H SQ 09/11/17 09:00 10/11/17 08:59 09/12/17 08:21 30 MG Acetaminophen (Tylenol Tab) 650 mg Q4H PRN PO 09/10/17 21:45 10/10/17 21:44 Insulin Aspart (novoLOG ASPART) SLIDING SCALE If C... ACHS SC 09/11/17 06:30 10/11/17 06:59 Glucose (Glucose 40% Gel) 15-30 GRAMS 15 GRAMS... UD PRN PO 09/10/17 21:45 10/10/17 21:44 Glucose (Glucose Chew Tab) 4-8 Tablets 4 Tabl... UD PRN PO 09/10/17 21:45 10/10/17 21:44 Dextrose (Dextrose 50% 50ML Syringe) 25-50ML OF 50% DW IV FOR... UD PRN IV 09/10/17 21:45 10/10/17 21:44 Glucagon (Glucagon Inj) 1 mg UD PRN SQ 09/10/17 21:45 10/10/17 21:44 Insulin Glargine (Lantus Solostar Pen) 5 units DAILY SC 09/11/17 09:00 10/11/17 08:59 09/12/17 07:59 5 UNITS Ondansetron HCl (Zofran Inj) 4 mg Q6H PRN IV 09/10/17 21:45 10/10/17 21:44 Lorazepam (Ativan Inj) 0.5 mg Q4H PRN IV 09/10/17 21:45 10/10/17 21:44 Amitriptyline HCl (Elavil Tab) 10 mg HS PO 09/11/17 21:00 10/11/17 20:59 09/11/17 20:17 10 MG Divalproex Sodium (Depakote Extended Rel Tab) 250 mg TID PO 09/11/17 09:00 10/11/17 08:59 09/12/17 13:54 250 MG Folic Acid (Folvite Tab) 1 mg DAILY PO 09/11/17 09:00 10/11/17 08:59 09/12/17 08:20 1 MG Lorazepam (Ativan Tab) 1 mg HS PO 09/11/17 21:00 10/11/17 20:59 09/11/17 20:24 1 MG Ranitidine HCl (zANTac TAB) 150 mg BID PO 09/11/17 09:00 10/11/17 08:59 09/12/17 08:20 150 MG Sertraline HCl (Zoloft Tab) 100 mg BID PO 09/11/17 09:00 10/11/17 08:59 09/12/17 08:20 100 MG Trazodone HCl (Desyrel Tab) 100 mg BID PO 09/11/17 09:00 10/11/17 08:59 09/11/17 20:22 100 MG Venlafaxine HCl (effeXOR EXTENDED REL CAP) 150 mg BID PO 09/11/17 09:00 10/11/17 08:59 09/12/17 08:20 150 MG Ferrous Sulfate (Feosol Tab) 325 mg DAILY PO 09/11/17 09:00 10/11/17 08:59 09/12/17 08:20 325 MG Pantoprazole Sodium (Protonix Tab) 40 mg QAM PO 09/11/17 09:00 10/11/17 08:59 09/12/17 08:21 40 MG Tramadol HCl (Ultram Tab) not relieved by tylenol @ Q6H PRN PO 09/10/17 21:45 10/10/17 21:44 09/11/17 18:48 50 MG Methylprednisolone Sodium Succinate 20 mg/Syringe 0.32 ml @ 1.5 mls/min BID IV 09/11/17 21:00 10/11/17 07:59 09/12/17 08:19 1.5 MLS/MIN Morphine Sulfate (MoRPHine SULFATE INJ) 2 mg Q4H PRN IV 09/11/17 11:45 09/24/17 21:44 09/12/17 13:54 2 MG
[2017-09-12 23:14] VITALS: BP 94/62; PULSE 111; TEMP 36.6; O2SAT 95
[2017-09-13] VITALS (7 sets, daily range): BP systolic 96–131; BP diastolic 64–77; PULSE 62–78; TEMP 36.5–36.9; O2SAT 92–96
[2017-09-13] MEDS: METHYLPREDNISOLONE IV 20 MG in SYRINGE 0 ML IV SCH ×2 (08:56→21:21)
[2017-09-13] MEDS: RANITIDINE HCL 150 MG TAB PO SCH ×2 (08:56→21:22)
[2017-09-13] MEDS: PANTOprazole SOD 40 MG TAB PO SCH (08:56)
[2017-09-13] MEDS: FERROUS SULFATE 325 MG TAB PO SCH (08:56)
[2017-09-13] MEDS: SERTRALINE HCL 100 MG TAB PO SCH ×2 (08:57→21:22)
[2017-09-13] MEDS: VENLAFAXINE HCL XR 150 MG CAPXR PO SCH ×2 (08:57→21:23)
[2017-09-13] MEDS: TRAZODONE HCL 100 MG TAB PO SCH ×2 (08:57→21:22)
[2017-09-13] MEDS: DIVALPROEX 250 MG EXTENDED REL TAB PO SCH ×3 (08:58→21:21)
[2017-09-13] MEDS: ENOXAPARIN 30 MG/0.3 ML SYR SQ SCH (09:04)
[2017-09-13] MEDS: INSULIN GLARGINE SOLOSTAR 100 UNITS/ML 3 ML PEN SC SCH (09:04)
[2017-09-13] MEDS: TRAMADOL HCL 50 MG TAB PO PRN (16:56)
--- NOTE | 2017-09-13 18:05 | Progress Note ---
Medicine Progress Note Date & Time of Visit: Sep 13, 2017 at 18:01. Subjective 51 yo F with worsening abdominal pain c/w Chron's flare. Tolerating food at this time with some pain. Feels as though food is getting stuck in the lower stomach somewhat. She is still requiring morphine for pain control. Objective Last 8 Hrs Date Time Temp Pulse Resp B/P (MAP) Pulse Ox O2 Delivery O2 Flow Rate FiO2 09/13/17 15:19 36.9 78 20 100/64 (76) 93 Room Air Physical Exam: GEN: WNWD, in no acute distress, alert and appropriate. Appears more comfortable today. HEENT: NC/AT, normal sclerae, MMM CARDIO: reg rate, S1/2 heard without m/g/r LUNGS: CTA bilaterally, no crackles, rales or wheezes, good diaphragmatic excursion ABD: soft, generalized TTP, non-distended, no rebound or guarding, +BS. Of note , patient seemed to react prior to my touching her abdomen or pushing down even slightly. EXTREMITY: RP and DP palpable 2+ bilat, no LE swelling or edema, extremities are warm and well-perfused NEURO: CN 2-12 grossly intact MUSC: ambulatory, moves all extremities equally. No focal deficits. SKIN: warm and dry, mild circumferential erythema area on posterior upper R thigh-improved. Laboratory Results: 09/11/17 06:01 Red Blood Count 4.22, Mean Corpuscular Volume 97.4, Mean Corpuscular Hemoglobin 31.0, Mean Corpuscular Hemoglobin Concent 31.9, Mean Platelet Volume 11.2, Neutrophils (%) (Auto) 80.3, Lymphocytes (%) (Auto) 17.3, Monocytes (%) (Auto) 2.2, Eosinophils (%) (Auto) 0.0, Basophils (%) (Auto) 0.0, Neutrophils # (Auto) 4.47, Lymphocytes # (Auto) 0.96, Monocytes # (Auto) 0.12, Eosinophils # (Auto) 0.00, Basophils # (Auto) 0.00 09/12/17 05:41 Test 09/10/17 18:38 09/10/17 21:30 09/10/17 23:10 09/11/17 06:01 Erythrocyte Sedimentation Rate 22 mm/hr (0-21) Prothrombin Time 10.7 SECONDS (9.0-12.0) Prothromb Time International Ratio 1.0 (0.9-1.1) Estimated Average Glucose 103 mg/dl Hemoglobin A1c 5.2 % (4.5-5.6) Total Bilirubin 0.3 mg/dl (0.2-1) Direct Bilirubin < 0.1 mg/dl (0-0.2) Aspartate Amino Transf (AST/SGOT) 10 U/L (15-37) Alanine Aminotransferase (ALT/SGPT) 14 U/L (12-78) Alkaline Phosphatase 83 U/L (45-117) Total Protein 7.6 gm/dl (6.4-8.2) Albumin 3.6 gm/dl (3.4-5.0) Lipase 64 U/L (73-393) Valproic Acid (Depakene) Level 37 mcg/ml (50-100) Urine Color YELLOW Urine Appearance SL CLOUDY (CLEAR) Urine pH 6.5 (4.5-7.5) Urine Specific [place] <= 1.005 (1.000-1.030) Urine Protein TRACE (NEG) Urine Glucose (UA) NEG (NEG) Urine Ketones TRACE (NEG) Urine Occult Blood NEG (NEG) Urine Nitrite NEG (NEG) Urine Bilirubin NEG (NEG) Urine Urobilinogen NEG (NEG) Urine Leukocyte Esterase NEG (NEG) Urine RBC 0-4 /hpf (0-4) Urine WBC 1-5 /hpf (0-5) Urine Epithelial Cells >30 /lpf (0-5) Urine Calcium Oxalate Crystals PRESENT (NONE PRSENT) Urine Bacteria NEG (NEG) White Blood Count 5.56 K/uL (4.8-10.8) Red Blood Count 4.22 M/uL (4.2-5.4) Hemoglobin 13.1 g/dL (12.0-16.0) Hematocrit 41.1 % (37-47) Mean Corpuscular Volume 97.4 fL (80-100) Mean Corpuscular Hemoglobin 31.0 pg (25-34) Mean Corpuscular Hemoglobin Concent 31.9 g/dl (32-36) Platelet Count 213 K/uL (130-400) Mean Platelet Volume 11.2 fL (7.4-10.4) Neutrophils (%) (Auto) 80.3 % Lymphocytes (%) (Auto) 17.3 % Monocytes (%) (Auto) 2.2 % Eosinophils (%) (Auto) 0.0 % Basophils (%) (Auto) 0.0 % Neutrophils # (Auto) 4.47 K/uL (1.4-6.5) Lymphocytes # (Auto) 0.96 K/uL (1.2-3.4) Monocytes # (Auto) 0.12 K/uL (0.11-0.59) Eosinophils # (Auto) 0.00 K/uL (0-0.5) Basophils # (Auto) 0.00 K/uL (0-0.2) RDW Standard Deviation 46.0 fL (36.4-46.3) RDW Coefficient of Variation 13.0 % (11.5-14.5) Immature Granulocyte % (Auto) 0.2 % Immature Granulocyte # (Auto) 0.01 K/uL (0.00-0.02) Test 09/12/17 05:41 09/13/17 16:29 Anion Gap 8.0 mmol/L (3-11) Est Creatinine Clear Calc Drug Dose 113.4 ml/min Estimated GFR () 130.7 Estimated GFR (Non- 112.8 BUN/Creatinine Ratio 8.9 (10-20) Calcium Level 8.6 mg/dl (8.5-10.1) Magnesium Level 2.0 mg/dl (1.8-2.4) Bedside Glucose 97 mg/dl (70-90) Last 24 Hours Test 09/12/17 19:58 09/13/17 07:45 09/13/17 11:41 09/13/17 16:29 Bedside Glucose 117 mg/dl 109 mg/dl 102 mg/dl 97 mg/dl Assessment & Plan 51 yo F with worsening abdominal pain c/w Chron's flare. Tolerating food at this time with some pain. Feels as though food is getting stuck in the lower stomach somewhat. She is still requiring morphine for pain control. 1. Abdominal pain and diarrhea following laxative use. CT a/p with ileitis and colitis. Clinical picture consistent with flare of Chron's. GI consulted and continuing with Solumedrol IV BID at this time with continued Remicaide as outpatient. Pt counseled to quit smoking as this may worsen the disease. Minimize pain meds. Adjust diet per GI recs. Will await GI recs on timing to initiate prednisone taper. Pt appears improved overall. 2. R hip and leg pain s/p fall-pt is ambulatory with improvement today. Xrays reviewed and reveal no fracture or dislocation. OA is present. No pain meds required at this time. SCDs ordered for comfort and DVT proph. 3. Mood disorder-cont Elavil 10 qHS, Lorazepam, Sertraline, Trazodone and Effexor per home med regimen. DVT px: Lovenox subQ. Full Code Dispo-to home when pain improved and patient is tolerating PO, likely next 1-2 days. Shanice Evangelista DO [facility] Hospitalist Consultants: GI-Case. Current Inpatient Medications: Current Inpatient Medications Medications (Trade) Dose Ordered Sig/Ida Route Start Time Stop Time Status Last Admin Dose Admin Ioversol (Optiray 320) 100 ml UD PRN IV 09/10/17 18:30 09/14/17 18:29 Enoxaparin Sodium (Lovenox Inj) 30 mg Q24H SQ 09/11/17 09:00 10/11/17 08:59 09/13/17 09:04 30 MG Acetaminophen (Tylenol Tab) 650 mg Q4H PRN PO 09/10/17 21:45 10/10/17 21:44 Glucose (Glucose 40% Gel) 15-30 GRAMS 15 GRAMS... UD PRN PO 09/10/17 21:45 10/10/17 21:44 Glucose (Glucose Chew Tab) 4-8 Tablets 4 Tabl... UD PRN PO 09/10/17 21:45 10/10/17 21:44 Dextrose (Dextrose 50% 50ML Syringe) 25-50ML OF 50% DW IV FOR... UD PRN IV 09/10/17 21:45 10/10/17 21:44 Glucagon (Glucagon Inj) 1 mg UD PRN SQ 09/10/17 21:45 10/10/17 21:44 Insulin Glargine (Lantus Solostar Pen) 5 units DAILY SC 09/11/17 09:00 10/11/17 08:59 09/13/17 09:04 5 UNITS Ondansetron HCl (Zofran Inj) 4 mg Q6H PRN IV 09/10/17 21:45 10/10/17 21:44 Lorazepam (Ativan Inj) 0.5 mg Q4H PRN IV 09/10/17 21:45 10/10/17 21:44 Amitriptyline HCl (Elavil Tab) 10 mg HS PO 09/11/17 21:00 10/11/17 20:59 09/12/17 21:03 10 MG Divalproex Sodium (Depakote Extended Rel Tab) 250 mg TID PO 09/11/17 09:00 10/11/17 08:59 09/13/17 13:31 250 MG Folic Acid (Folvite Tab) 1 mg DAILY PO 09/11/17 09:00 10/11/17 08:59 09/13/17 08:57 1 MG Lorazepam (Ativan Tab) 1 mg HS PO 09/11/17 21:00 10/11/17 20:59 09/12/17 21:01 1 MG Ranitidine HCl (zANTac TAB) 150 mg BID PO 09/11/17 09:00 10/11/17 08:59 09/13/17 08:56 150 MG Sertraline HCl (Zoloft Tab) 100 mg BID PO 09/11/17 09:00 10/11/17 08:59 09/13/17 08:57 100 MG Trazodone HCl (Desyrel Tab) 100 mg BID PO 09/11/17 09:00 10/11/17 08:59 09/13/17 08:57 100 MG Venlafaxine HCl (effeXOR EXTENDED REL CAP) 150 mg BID PO 09/11/17 09:00 10/11/17 08:59 09/13/17 08:57 150 MG Ferrous Sulfate (Feosol Tab) 325 mg DAILY PO 09/11/17 09:00 10/11/17 08:59 09/13/17 08:56 325 MG Pantoprazole Sodium (Protonix Tab) 40 mg QAM PO 09/11/17 09:00 10/11/17 08:59 09/13/17 08:56 40 MG Tramadol HCl (Ultram Tab) not relieved by tylenol @ Q6H PRN PO 09/10/17 21:45 10/10/17 21:44 09/13/17 16:56 50 MG Methylprednisolone Sodium Succinate 20 mg/Syringe 0.32 ml @ 1.5 mls/min BID IV 09/11/17 21:00 10/11/17 07:59 09/13/17 08:56 1.5 MLS/MIN Morphine Sulfate (MoRPHine SULFATE INJ) 2 mg Q4H PRN IV 09/11/17 11:45 09/24/17 21:44 09/12/17 22:27 2 MG
[2017-09-13] MEDS: MoRPHine SULFATE 2 MG/ML CARP IV PRN ×2 (18:23→22:33)
[2017-09-13] MEDS: LORAZEPAM 1 MG TAB PO SCH (21:21)
[2017-09-13] MEDS: AMITRIPTYLINE HCL 10 MG TAB PO SCH (21:22)
[2017-09-14] MEDS: TRAMADOL HCL 50 MG TAB PO PRN ×2 (00:50→23:04)
[2017-09-14] MEDS: MoRPHine SULFATE 2 MG/ML CARP IV PRN (03:19)
[2017-09-14 06:27] LABS: BASO % 0.1 %; BASO ABS # 0.01 K/uL (0-0.2); COMPLETE YES; HEMATOCRIT 37.2 % (37-47); IG% 0.3 %; LYMPH % 44.3 %; LYMPH ABS # 3.25 K/uL (1.2-3.4); MEAN CELL VOLUME 98.9 fL (80-100); MEAN CORPUSCULAR HEMOGLOBIN 32.2 pg (25-34); MEAN CORPUSCULAR HGB CONC 32.5 g/dl (32-36); MEAN PLATELET VOLUME 11.1 fL (7.4-10.4); MONO % 8.4 %; NEUT % 46.9 %; PLATELET COUNT 174 K/uL (130-400); RED BLOOD COUNT 3.76 M/uL (4.2-5.4); WHITE BLOOD COUNT 7.34 K/uL (4.8-10.8)
[2017-09-14 06:58] LABS: BUN/CREATININE RATIO 12.8 (10-20); CALCIUM 8.9 mg/dl (8.5-10.1); CREATININE 0.67 mg/dl (0.60-1.20); POTASSIUM 3.1 mmol/L (3.5-5.1)
[2017-09-14 07:26] VITALS: BP 105/72; PULSE 75; TEMP 36.6; O2SAT 94
[2017-09-14] MEDS: FERROUS SULFATE 325 MG TAB PO SCH (08:26)
[2017-09-14] MEDS: PANTOprazole SOD 40 MG TAB PO SCH (08:26)
[2017-09-14] MEDS: RANITIDINE HCL 150 MG TAB PO SCH ×2 (08:26→21:00)
[2017-09-14] MEDS: TRAZODONE HCL 100 MG TAB PO SCH ×2 (08:26→20:59)
[2017-09-14] MEDS: METHYLPREDNISOLONE IV 20 MG in SYRINGE 0 ML IV SCH (08:26)
[2017-09-14] MEDS: SERTRALINE HCL 100 MG TAB PO SCH ×2 (08:27→20:58)
[2017-09-14] MEDS: ENOXAPARIN 30 MG/0.3 ML SYR SQ SCH (08:27)
[2017-09-14] MEDS: VENLAFAXINE HCL XR 150 MG CAPXR PO SCH ×2 (08:27→20:58)
[2017-09-14] MEDS: DIVALPROEX 250 MG EXTENDED REL TAB PO SCH ×3 (08:27→20:58)
[2017-09-14] MEDS ORDERED: POLYETHYLENE (MIRALAX) 17 GM PACK PO ONE (09:45)
--- NOTE | 2017-09-14 09:45 | Gastroenterology Progress Note ---
Progress Note Date of Service: Sep 14, 2017 Subjective Pt evaluation today including: conversation w/ patient, conversation w/ family , physical exam, chart review, lab review, review of studies, review of inpatient medication list Izzy reports stable abdominal pain. Continues to request narcotic analgesics. Has not had a bowel movement since admission. Tolerating diet but with mild nausea. No vomiting, fever or chills. No melena or hematochezia. Continues IV Solu-Medrol. Review of Systems Constitutional: + see HPI Respiratory: No problem reported Cardiac: No problem reported Abdomen: + see HPI Medications Current Inpatient Medications Medications (Trade) Dose Ordered Sig/Ida Route Start Time Stop Time Status Last Admin Dose Admin Ioversol (Optiray 320) 100 ml UD PRN IV 09/10/17 18:30 09/14/17 18:29 Enoxaparin Sodium (Lovenox Inj) 30 mg Q24H SQ 09/11/17 09:00 10/11/17 08:59 09/14/17 08:27 30 MG Acetaminophen (Tylenol Tab) 650 mg Q4H PRN PO 09/10/17 21:45 10/10/17 21:44 Ondansetron HCl (Zofran Inj) 4 mg Q6H PRN IV 09/10/17 21:45 10/10/17 21:44 Lorazepam (Ativan Inj) 0.5 mg Q4H PRN IV 09/10/17 21:45 10/10/17 21:44 Amitriptyline HCl (Elavil Tab) 10 mg HS PO 09/11/17 21:00 10/11/17 20:59 09/13/17 21:22 10 MG Divalproex Sodium (Depakote Extended Rel Tab) 250 mg TID PO 09/11/17 09:00 10/11/17 08:59 09/14/17 08:27 250 MG Folic Acid (Folvite Tab) 1 mg DAILY PO 09/11/17 09:00 10/11/17 08:59 09/14/17 08:27 1 MG Lorazepam (Ativan Tab) 1 mg HS PO 09/11/17 21:00 10/11/17 20:59 09/13/17 21:21 1 MG Ranitidine HCl (zANTac TAB) 150 mg BID PO 09/11/17 09:00 10/11/17 08:59 09/14/17 08:26 150 MG Sertraline HCl (Zoloft Tab) 100 mg BID PO 09/11/17 09:00 10/11/17 08:59 09/14/17 08:27 100 MG Trazodone HCl (Desyrel Tab) 100 mg BID PO 09/11/17 09:00 10/11/17 08:59 09/14/17 08:26 100 MG Venlafaxine HCl (effeXOR EXTENDED REL CAP) 150 mg BID PO 09/11/17 09:00 10/11/17 08:59 09/14/17 08:27 150 MG Ferrous Sulfate (Feosol Tab) 325 mg DAILY PO 09/11/17 09:00 10/11/17 08:59 09/14/17 08:26 325 MG Pantoprazole Sodium (Protonix Tab) 40 mg QAM PO 09/11/17 09:00 10/11/17 08:59 09/14/17 08:26 40 MG Tramadol HCl (Ultram Tab) not relieved by tylenol @ Q6H PRN PO 09/10/17 21:45 10/10/17 21:44 09/14/17 00:50 50 MG Methylprednisolone Sodium Succinate 20 mg/Syringe 0.32 ml @ 1.5 mls/min BID IV 09/11/17 21:00 10/11/17 07:59 09/14/17 08:26 1.5 MLS/MIN Morphine Sulfate (MoRPHine SULFATE INJ) 2 mg Q4H PRN IV 09/11/17 11:45 09/24/17 21:44 09/14/17 03:19 2 MG Potassium Chloride (Klor-Con Tab) 40 meq Q6H PO 09/14/17 09:15 09/14/17 15:16 UNV Objective Vital Signs Date Time Temp Pulse Resp B/P (MAP) Pulse Ox O2 Delivery O2 Flow Rate FiO2 09/14/17 08:00 Room Air 09/14/17 07:26 36.6 75 20 105/72 (83) 94 Room Air 09/14/17 00:05 Room Air 09/13/17 23:33 36.8 62 20 107/70 (82) 96 Room Air 09/13/17 16:03 95 Room Air 09/13/17 15:19 36.9 78 20 100/64 (76) 93 Room Air Physical Exam General Appearance: WD/WN, no apparent distress Eyes: EOMI ENT: hearing grossly normal Neck: supple Respiratory/Chest: lungs clear, normal breath sounds, no respiratory distress Cardiovascular: regular rate, rhythm, no gallop, no murmur Abdomen: normal bowel sounds, soft, + distended (lower abdomen), + tenderness Extremities: no pedal edema Neurologic/Psych: alert, normal mood/affect, oriented x 3 Skin: warm/dry Laboratory Results Last 24 Hours Test 09/13/17 11:41 09/13/17 16:29 09/13/17 20:13 09/14/17 06:13 Bedside Glucose 102 mg/dl 97 mg/dl 105 mg/dl White Blood Count 7.34 K/uL Red Blood Count 3.76 M/uL Hemoglobin 12.1 g/dL Hematocrit 37.2 % Mean Corpuscular Volume 98.9 fL Mean Corpuscular Hemoglobin 32.2 pg Mean Corpuscular Hemoglobin Concent 32.5 g/dl Platelet Count 174 K/uL Mean Platelet Volume 11.1 fL Neutrophils (%) (Auto) 46.9 % Lymphocytes (%) (Auto) 44.3 % Monocytes (%) (Auto) 8.4 % Eosinophils (%) (Auto) 0.0 % Basophils (%) (Auto) 0.1 % Neutrophils # (Auto) 3.44 K/uL Lymphocytes # (Auto) 3.25 K/uL Monocytes # (Auto) 0.62 K/uL Eosinophils # (Auto) 0.00 K/uL Basophils # (Auto) 0.01 K/uL RDW Standard Deviation 45.8 fL RDW Coefficient of Variation 12.7 % Immature Granulocyte % (Auto) 0.3 % Immature Granulocyte # (Auto) 0.02 K/uL Sodium Level 140 mmol/L Potassium Level 3.1 mmol/L Chloride Level 102 mmol/L Carbon Dioxide Level 28 mmol/L Anion Gap 10.0 mmol/L Blood Urea Nitrogen 9 mg/dl Creatinine 0.67 mg/dl Est Creatinine Clear Calc Drug Dose 81.2 ml/min Estimated GFR () 117.1 Estimated GFR (Non- 101.1 BUN/Creatinine Ratio 12.8 Random Glucose 110 mg/dl Calcium Level 8.9 mg/dl Test 09/14/17 07:40 Bedside Glucose 79 mg/dl Assessment and Plan Patient is a 51 year old female with a history of Crohn's ileocolitis on Remicade therapy with worsening RLQ pain and diarrhea following stimulant laxative use and CT imaging demonstrating improvement in bowel wall thickening and lymphadenopathy. 1. Regular diet. 2. Discussed stopping Tramadol and Morphine as these are contributing to constipation and possibly pain is from constipation. She and her daughter were in agreement to stop these medications. 3. Start Prednisone taper at 40 mg daily decreasing by 5 mg weekly until complete. 4. 1 capful of MiraLAX in 8 ounces of liquid now. Add Colace 100 mg BID. 5. Continue outpatient Remicade therapy at 5 mg/kg IV every 8 weeks. 6. Outpatient GI follow up upon discharge. Agree with CHIKI Pearce as above Abd: Soft, NT, ND, +BS Continue current therapy Followup in our office as an outpatient.
[2017-09-14] MEDS: POTASSIUM CHLORIDE 20 MEQ TABCR PO SCH ×2 (11:13→15:38)
--- NOTE | 2017-09-14 13:52 | Progress Note ---
Medicine Progress Note Date & Time of Visit: Sep 14, 2017 at 13:49. Subjective 51 yo F with worsening abdominal pain c/w Chron's flare. Tolerating food at this time with some pain-slightly worse overnight per her report. She is still requiring morphine and tramadol for pain control but will attempt to not use these in setting of constipation per GI. Pt denies BM since admission. No other hip pain or symptoms today. Objective Last 8 Hrs Date Time Temp Pulse Resp B/P (MAP) Pulse Ox O2 Delivery O2 Flow Rate FiO2 09/14/17 08:00 Room Air 09/14/17 07:26 36.6 75 20 105/72 (83) 94 Room Air Physical Exam: GEN: WNWD, in no acute distress, alert and appropriate. Appears more comfortable today. HEENT: NC/AT, normal sclerae, MMM CARDIO: reg rate, S1/2 heard without m/g/r LUNGS: CTA bilaterally, no crackles, rales or wheezes, good diaphragmatic excursion ABD: soft, TTP lower abdomen, non-distended, no rebound or guarding, +BS. Of note, patient seemed to react prior to my touching her abdomen or pushing down even slightly. EXTREMITY: RP and DP palpable 2+ bilat, no LE swelling or edema, extremities are warm and well-perfused NEURO: CN 2-12 grossly intact MUSC: ambulatory, moves all extremities equally. No focal deficits. SKIN: warm and dry, mild circumferential erythema area on posterior upper R thigh-resolved Laboratory Results: 09/14/17 06:13 Red Blood Count 3.76, Mean Corpuscular Volume 98.9, Mean Corpuscular Hemoglobin 32.2, Mean Corpuscular Hemoglobin Concent 32.5, Mean Platelet Volume 11.1, Neutrophils (%) (Auto) 46.9, Lymphocytes (%) (Auto) 44.3, Monocytes (%) (Auto) 8.4, Eosinophils (%) (Auto) 0.0, Basophils (%) (Auto) 0.1, Neutrophils # (Auto) 3.44, Lymphocytes # (Auto) 3.25, Monocytes # (Auto) 0.62, Eosinophils # (Auto) 0.00, Basophils # (Auto) 0.01 09/14/17 06:13 Test 09/10/17 18:38 09/10/17 21:30 09/10/17 23:10 09/12/17 05:41 Erythrocyte Sedimentation Rate 22 mm/hr (0-21) Prothrombin Time 10.7 SECONDS (9.0-12.0) Prothromb Time International Ratio 1.0 (0.9-1.1) Estimated Average Glucose 103 mg/dl Hemoglobin A1c 5.2 % (4.5-5.6) Total Bilirubin 0.3 mg/dl (0.2-1) Direct Bilirubin < 0.1 mg/dl (0-0.2) Aspartate Amino Transf (AST/SGOT) 10 U/L (15-37) Alanine Aminotransferase (ALT/SGPT) 14 U/L (12-78) Alkaline Phosphatase 83 U/L (45-117) Total Protein 7.6 gm/dl (6.4-8.2) Albumin 3.6 gm/dl (3.4-5.0) Lipase 64 U/L (73-393) Valproic Acid (Depakene) Level 37 mcg/ml (50-100) Urine Color YELLOW Urine Appearance SL CLOUDY (CLEAR) Urine pH 6.5 (4.5-7.5) Urine Specific [place] <= 1.005 (1.000-1.030) Urine Protein TRACE (NEG) Urine Glucose (UA) NEG (NEG) Urine Ketones TRACE (NEG) Urine Occult Blood NEG (NEG) Urine Nitrite NEG (NEG) Urine Bilirubin NEG (NEG) Urine Urobilinogen NEG (NEG) Urine Leukocyte Esterase NEG (NEG) Urine RBC 0-4 /hpf (0-4) Urine WBC 1-5 /hpf (0-5) Urine Epithelial Cells >30 /lpf (0-5) Urine Calcium Oxalate Crystals PRESENT (NONE PRSENT) Urine Bacteria NEG (NEG) Magnesium Level 2.0 mg/dl (1.8-2.4) Test 09/14/17 06:13 09/14/17 11:44 White Blood Count 7.34 K/uL (4.8-10.8) Red Blood Count 3.76 M/uL (4.2-5.4) Hemoglobin 12.1 g/dL (12.0-16.0) Hematocrit 37.2 % (37-47) Mean Corpuscular Volume 98.9 fL (80-100) Mean Corpuscular Hemoglobin 32.2 pg (25-34) Mean Corpuscular Hemoglobin Concent 32.5 g/dl (32-36) Platelet Count 174 K/uL (130-400) Mean Platelet Volume 11.1 fL (7.4-10.4) Neutrophils (%) (Auto) 46.9 % Lymphocytes (%) (Auto) 44.3 % Monocytes (%) (Auto) 8.4 % Eosinophils (%) (Auto) 0.0 % Basophils (%) (Auto) 0.1 % Neutrophils # (Auto) 3.44 K/uL (1.4-6.5) Lymphocytes # (Auto) 3.25 K/uL (1.2-3.4) Monocytes # (Auto) 0.62 K/uL (0.11-0.59) Eosinophils # (Auto) 0.00 K/uL (0-0.5) Basophils # (Auto) 0.01 K/uL (0-0.2) RDW Standard Deviation 45.8 fL (36.4-46.3) RDW Coefficient of Variation 12.7 % (11.5-14.5) Immature Granulocyte % (Auto) 0.3 % Immature Granulocyte # (Auto) 0.02 K/uL (0.00-0.02) Anion Gap 10.0 mmol/L (3-11) Est Creatinine Clear Calc Drug Dose 81.2 ml/min Estimated GFR () 117.1 Estimated GFR (Non- 101.1 BUN/Creatinine Ratio 12.8 (10-20) Calcium Level 8.9 mg/dl (8.5-10.1) Bedside Glucose 128 mg/dl (70-90) Last 24 Hours Test 09/13/17 16:29 09/13/17 20:13 09/14/17 06:13 09/14/17 07:40 Bedside Glucose 97 mg/dl 105 mg/dl 79 mg/dl White Blood Count 7.34 K/uL Red Blood Count 3.76 M/uL Hemoglobin 12.1 g/dL Hematocrit 37.2 % Mean Corpuscular Volume 98.9 fL Mean Corpuscular Hemoglobin 32.2 pg Mean Corpuscular Hemoglobin Concent 32.5 g/dl Platelet Count 174 K/uL Mean Platelet Volume 11.1 fL Neutrophils (%) (Auto) 46.9 % Lymphocytes (%) (Auto) 44.3 % Monocytes (%) (Auto) 8.4 % Eosinophils (%) (Auto) 0.0 % Basophils (%) (Auto) 0.1 % Neutrophils # (Auto) 3.44 K/uL Lymphocytes # (Auto) 3.25 K/uL Monocytes # (Auto) 0.62 K/uL Eosinophils # (Auto) 0.00 K/uL Basophils # (Auto) 0.01 K/uL RDW Standard Deviation 45.8 fL RDW Coefficient of Variation 12.7 % Immature Granulocyte % (Auto) 0.3 % Immature Granulocyte # (Auto) 0.02 K/uL Sodium Level 140 mmol/L Potassium Level 3.1 mmol/L Chloride Level 102 mmol/L Carbon Dioxide Level 28 mmol/L Anion Gap 10.0 mmol/L Blood Urea Nitrogen 9 mg/dl Creatinine 0.67 mg/dl Est Creatinine Clear Calc Drug Dose 81.2 ml/min Estimated GFR () 117.1 Estimated GFR (Non- 101.1 BUN/Creatinine Ratio 12.8 Random Glucose 110 mg/dl Calcium Level 8.9 mg/dl Test 09/14/17 11:44 Bedside Glucose 128 mg/dl Assessment & Plan 51 yo F with worsening abdominal pain c/w Chron's flare. Tolerating food at this time with some pain-slightly worse overnight per her report. She is still requiring morphine and tramadol for pain control but will attempt to not use these in setting of constipation per GI. Pt denies BM since admission. No other hip pain or symptoms today. 1. Abdominal pain and diarrhea following laxative use. Now having constipation which may be contributing somewhat to the abdominal pain. CT a/p with ileitis and colitis. Clinical picture consistent with flare of Chron's. Holding narcotics unless severe pain. GI consulted and agree with prednisone at this time with continued Remicaide as outpatient. Pt counseled to quit smoking as this may worsen the disease. 2. R hip and leg pain s/p fall-pt is ambulatory with improvement today. Xrays reviewed and reveal no fracture or dislocation. OA is present. No pain meds required at this time. SCDs ordered for comfort and DVT proph. 3. Mood disorder-cont Elavil 10 qHS, Lorazepam, Sertraline, Trazodone and Effexor per home med regimen. 4. Hypokalemia-replace and repeat PRP in am. DVT px: Lovenox subQ. Full Code Dispo-to home when pain improved and patient is tolerating PO, likely next 1-2 days. Shanice Evangelista DO [facility] Hospitalist Consultants: [facility]. Current Inpatient Medications: Current Inpatient Medications Medications (Trade) Dose Ordered Sig/Ida Route Start Time Stop Time Status Last Admin Dose Admin Ioversol (Optiray 320) 100 ml UD PRN IV 09/10/17 18:30 09/14/17 18:29 Enoxaparin Sodium (Lovenox Inj) 30 mg Q24H SQ 09/11/17 09:00 10/11/17 08:59 09/14/17 08:27 30 MG Acetaminophen (Tylenol Tab) 650 mg Q4H PRN PO 09/10/17 21:45 10/10/17 21:44 Ondansetron HCl (Zofran Inj) 4 mg Q6H PRN IV 09/10/17 21:45 10/10/17 21:44 Lorazepam (Ativan Inj) 0.5 mg Q4H PRN IV 09/10/17 21:45 10/10/17 21:44 Amitriptyline HCl (Elavil Tab) 10 mg HS PO 09/11/17 21:00 10/11/17 20:59 09/13/17 21:22 10 MG Divalproex Sodium (Depakote Extended Rel Tab) 250 mg TID PO 09/11/17 09:00 10/11/17 08:59 09/14/17 08:27 250 MG Folic Acid (Folvite Tab) 1 mg DAILY PO 09/11/17 09:00 10/11/17 08:59 09/14/17 08:27 1 MG Lorazepam (Ativan Tab) 1 mg HS PO 09/11/17 21:00 10/11/17 20:59 09/13/17 21:21 1 MG Ranitidine HCl (zANTac TAB) 150 mg BID PO 09/11/17 09:00 10/11/17 08:59 09/14/17 08:26 150 MG Sertraline HCl (Zoloft Tab) 100 mg BID PO 09/11/17 09:00 10/11/17 08:59 09/14/17 08:27 100 MG Trazodone HCl (Desyrel Tab) 100 mg BID PO 09/11/17 09:00 10/11/17 08:59 09/14/17 08:26 100 MG Venlafaxine HCl (effeXOR EXTENDED REL CAP) 150 mg BID PO 09/11/17 09:00 10/11/17 08:59 09/14/17 08:27 150 MG Ferrous Sulfate (Feosol Tab) 325 mg DAILY PO 09/11/17 09:00 10/11/17 08:59 09/14/17 08:26 325 MG Pantoprazole Sodium (Protonix Tab) 40 mg QAM PO 09/11/17 09:00 10/11/17 08:59 09/14/17 08:26 40 MG Tramadol HCl (Ultram Tab) not relieved by tylenol @ Q6H PRN PO 09/10/17 21:45 10/10/17 21:44 09/14/17 00:50 50 MG Methylprednisolone Sodium Succinate 20 mg/Syringe 0.32 ml @ 1.5 mls/min BID IV 09/11/17 21:00 10/11/17 07:59 09/14/17 08:26 1.5 MLS/MIN Morphine Sulfate (MoRPHine SULFATE INJ) 2 mg Q4H PRN IV 09/11/17 11:45 09/24/17 21:44 09/14/17 03:19 2 MG Potassium Chloride (Klor-Con Tab) 40 meq Q6H PO 09/14/17 10:08 09/14/17 16:09 09/14/17 11:13 40 MEQ Docusate Sodium (coLACE CAP) 100 mg BID PO 09/14/17 21:00 10/14/17 20:59
[2017-09-14 16:00] VITALS: O2SAT 94
[2017-09-14 16:08] VITALS: BP 110/79; PULSE 75; TEMP 36.5; O2SAT 95
[2017-09-14] MEDS: AMITRIPTYLINE HCL 10 MG TAB PO SCH (20:57)
[2017-09-14] MEDS: DOCUSATE SODIUM 100 MG CAP PO SCH (20:58)
[2017-09-14] MEDS: LORAZEPAM 1 MG TAB PO SCH (21:03)
[2017-09-14 23:35] VITALS: BP 122/62; PULSE 81; TEMP 36.7; O2SAT 95
[2017-09-15 00:05] VITALS: O2SAT 94
[2017-09-15 06:53] LABS: HEMATOCRIT 42.5 % (37-47); MEAN CELL VOLUME 98.2 fL (80-100); MEAN CORPUSCULAR HEMOGLOBIN 32.8 pg (25-34); MEAN CORPUSCULAR HGB CONC 33.4 g/dl (32-36); MEAN PLATELET VOLUME 11.4 fL (7.4-10.4); PLATELET COUNT 183 K/uL (130-400); RED BLOOD COUNT 4.33 M/uL (4.2-5.4); WHITE BLOOD COUNT 9.15 K/uL (4.8-10.8)
[2017-09-15 07:20] VITALS: BP 97/63; PULSE 106; TEMP 36.7; O2SAT 96
[2017-09-15 07:27] LABS: BUN/CREATININE RATIO 19.9 (10-20); CALCIUM 9.4 mg/dl (8.5-10.1); CREATININE 0.58 mg/dl (0.60-1.20); POTASSIUM 4.1 mmol/L (3.5-5.1)
[2017-09-15] MEDS: DIVALPROEX 250 MG EXTENDED REL TAB PO SCH ×3 (08:32→20:28)
[2017-09-15] MEDS: DOCUSATE SODIUM 100 MG CAP PO SCH (08:32)
[2017-09-15] MEDS: VENLAFAXINE HCL XR 150 MG CAPXR PO SCH ×2 (08:32→20:30)
[2017-09-15] MEDS: TRAZODONE HCL 100 MG TAB PO SCH ×2 (08:33→20:30)
[2017-09-15] MEDS: SERTRALINE HCL 100 MG TAB PO SCH ×2 (08:33→20:28)
[2017-09-15] MEDS: FERROUS SULFATE 325 MG TAB PO SCH (08:35)
[2017-09-15] MEDS: RANITIDINE HCL 150 MG TAB PO SCH ×2 (08:35→20:29)
[2017-09-15] MEDS: PANTOprazole SOD 40 MG TAB PO SCH (08:35)
[2017-09-15] MEDS: ENOXAPARIN 30 MG/0.3 ML SYR SQ SCH (08:36)
[2017-09-15] MEDS: ACETAMINOPHEN 325 MG TAB PO PRN ×2 (08:45→17:34)
[2017-09-15] MEDS ORDERED: POLYETHYLENE (MIRALAX) 17 GM PACK PO SCH (09:00)
[2017-09-15 11:32] VITALS: BP 102/72; PULSE 84; TEMP 36.8; O2SAT 96
[2017-09-15] MEDS ORDERED: GLYCERIN ADULT 1 EA SUPP PR PRN (12:45)
[2017-09-15 16:35] VITALS: BP 104/71; PULSE 89; TEMP 36.9; O2SAT 94
--- NOTE | 2017-09-15 17:57 | Progress Note ---
Medicine Progress Note Date & Time of Visit: Sep 15, 2017 at 17:46. Subjective 51 yo F with worsening abdominal pain c/w Chron's flare. Tolerating food at this time with some pain-slightly worse overnight per her report. She is still requiring morphine and tramadol for pain control but will attempt to not use these in setting of constipation per GI. Pt denies BM since admission. No other hip pain or symptoms today. -eating a cheeseburger with no issues when I arrived. -tolerating food for at least two days -states her pain was worse overnight but she has a hard time telling me much more than that -fears that she is constipated, had miralax, and doesn't want to go home "because I'm afraid I will shit myself" -encouraged ambulation again today Objective Last 8 Hrs Date Time Temp Pulse Resp B/P (MAP) Pulse Ox O2 Delivery O2 Flow Rate FiO2 09/15/17 16:35 36.9 89 18 104/71 (82) 94 Room Air 09/15/17 11:32 36.8 84 18 102/72 (82) 96 Room Air Physical Exam: GEN: WNWD, in no acute distress, alert and appropriate. HEENT: NC/AT, normal sclerae, MMM CARDIO: reg rate, S1/2 heard without m/g/r LUNGS: CTA bilaterally, no crackles, rales or wheezes, good diaphragmatic excursion ABD: soft, TTP lower abdomen, non-distended, no rebound or guarding, +BS. Of note, patient seemed to react prior to my touching her abdomen or pushing down even slightly-this continues today EXTREMITY: RP and DP palpable 2+ bilat, no LE swelling or edema, extremities are warm and well-perfused NEURO: CN 2-12 grossly intact MUSC: ambulatory, moves all extremities equally. No focal deficits. SKIN: warm and dry Laboratory Results: 09/15/17 06:43 09/15/17 06:43 Test 09/10/17 18:38 09/10/17 21:30 09/10/17 23:10 09/14/17 06:13 Erythrocyte Sedimentation Rate 22 mm/hr (0-21) Prothrombin Time 10.7 SECONDS (9.0-12.0) Prothromb Time International Ratio 1.0 (0.9-1.1) Estimated Average Glucose 103 mg/dl Hemoglobin A1c 5.2 % (4.5-5.6) Total Bilirubin 0.3 mg/dl (0.2-1) Direct Bilirubin < 0.1 mg/dl (0-0.2) Aspartate Amino Transf (AST/SGOT) 10 U/L (15-37) Alanine Aminotransferase (ALT/SGPT) 14 U/L (12-78) Alkaline Phosphatase 83 U/L (45-117) Total Protein 7.6 gm/dl (6.4-8.2) Albumin 3.6 gm/dl (3.4-5.0) Lipase 64 U/L (73-393) Valproic Acid (Depakene) Level 37 mcg/ml (50-100) Urine Color YELLOW Urine Appearance SL CLOUDY (CLEAR) Urine pH 6.5 (4.5-7.5) Urine Specific [place] <= 1.005 (1.000-1.030) Urine Protein TRACE (NEG) Urine Glucose (UA) NEG (NEG) Urine Ketones TRACE (NEG) Urine Occult Blood NEG (NEG) Urine Nitrite NEG (NEG) Urine Bilirubin NEG (NEG) Urine Urobilinogen NEG (NEG) Urine Leukocyte Esterase NEG (NEG) Urine RBC 0-4 /hpf (0-4) Urine WBC 1-5 /hpf (0-5) Urine Epithelial Cells >30 /lpf (0-5) Urine Calcium Oxalate Crystals PRESENT (NONE PRSENT) Urine Bacteria NEG (NEG) Immature Granulocyte % (Auto) 0.3 % White Blood Count 7.34 K/uL (4.8-10.8) Red Blood Count 3.76 M/uL (4.2-5.4) Hemoglobin 12.1 g/dL (12.0-16.0) Hematocrit 37.2 % (37-47) Mean Corpuscular Volume 98.9 fL (80-100) Mean Corpuscular Hemoglobin 32.2 pg (25-34) Mean Corpuscular Hemoglobin Concent 32.5 g/dl (32-36) Platelet Count 174 K/uL (130-400) Mean Platelet Volume 11.1 fL (7.4-10.4) Neutrophils (%) (Auto) 46.9 % Lymphocytes (%) (Auto) 44.3 % Monocytes (%) (Auto) 8.4 % Eosinophils (%) (Auto) 0.0 % Basophils (%) (Auto) 0.1 % Neutrophils # (Auto) 3.44 K/uL (1.4-6.5) Lymphocytes # (Auto) 3.25 K/uL (1.2-3.4) Monocytes # (Auto) 0.62 K/uL (0.11-0.59) Eosinophils # (Auto) 0.00 K/uL (0-0.5) Basophils # (Auto) 0.01 K/uL (0-0.2) Immature Granulocyte # (Auto) 0.02 K/uL (0.00-0.02) Test 09/15/17 06:43 09/15/17 16:46 Red Blood Count 4.33 M/uL (4.2-5.4) Mean Corpuscular Volume 98.2 fL (80-100) Mean Corpuscular Hemoglobin 32.8 pg (25-34) Mean Corpuscular Hemoglobin Concent 33.4 g/dl (32-36) RDW Standard Deviation 45.6 fL (36.4-46.3) RDW Coefficient of Variation 12.6 % (11.5-14.5) Mean Platelet Volume 11.4 fL (7.4-10.4) Anion Gap 8.0 mmol/L (3-11) Est Creatinine Clear Calc Drug Dose 93.9 ml/min Estimated GFR () 122.8 Estimated GFR (Non- 106.0 BUN/Creatinine Ratio 19.9 (10-20) Calcium Level 9.4 mg/dl (8.5-10.1) Magnesium Level 2.0 mg/dl (1.8-2.4) Bedside Glucose 141 mg/dl (70-90) Last 24 Hours Test 09/14/17 20:07 09/15/17 06:43 09/15/17 07:34 09/15/17 11:24 Bedside Glucose 102 mg/dl 88 mg/dl 112 mg/dl White Blood Count 9.15 K/uL Red Blood Count 4.33 M/uL Hemoglobin 14.2 g/dL Hematocrit 42.5 % Mean Corpuscular Volume 98.2 fL Mean Corpuscular Hemoglobin 32.8 pg Mean Corpuscular Hemoglobin Concent 33.4 g/dl RDW Standard Deviation 45.6 fL RDW Coefficient of Variation 12.6 % Platelet Count 183 K/uL Mean Platelet Volume 11.4 fL Sodium Level 137 mmol/L Potassium Level 4.1 mmol/L Chloride Level 101 mmol/L Carbon Dioxide Level 29 mmol/L Anion Gap 8.0 mmol/L Blood Urea Nitrogen 12 mg/dl Creatinine 0.58 mg/dl Est Creatinine Clear Calc Drug Dose 93.9 ml/min Estimated GFR () 122.8 Estimated GFR (Non- 106.0 BUN/Creatinine Ratio 19.9 Random Glucose 92 mg/dl Calcium Level 9.4 mg/dl Magnesium Level 2.0 mg/dl Test 09/15/17 16:46 Bedside Glucose 141 mg/dl Assessment & Plan 51 yo F with worsening abdominal pain c/w Chron's flare. Tolerating food at this time with some pain-slightly worse overnight per her report. She is still requiring morphine and tramadol for pain control but will attempt to not use these in setting of constipation per GI. Pt denies BM since admission. No other hip pain or symptoms today. 1. Abdominal pain and diarrhea following laxative use. Now having constipation which may be contributing somewhat to the abdominal pain. CT a/p with ileitis and colitis. Clinical picture consistent with flare of Chron's. Holding narcotics unless severe pain. GI consulted and agree with prednisone at this time with continued Remicaide as outpatient. Pt counseled to quit smoking as this may worsen the disease. Miralax given this morning with no result so suppositroy also ordered if needed. Spoke to nurse around 1700 who said that she required one Tylenol for abdominal pain and that she had had a BM. Miralax changed to PRN and plan to dc to home in am. 2. R hip and leg pain s/p fall-pt is ambulatory with improvement today. Xrays reviewed and reveal no fracture or dislocation. OA is present. No pain meds required at this time. SCDs ordered for comfort and DVT proph. 3. Mood disorder-cont Elavil 10 qHS, Lorazepam, Sertraline, Trazodone and Effexor per home med regimen. 4. Hypokalemia-resolved DVT px: Lovenox subQ. Full Code Dispo-to home when pain improved and patient is tolerating PO, likely next 1-2 days. DO [facility] Hospitalist Consultants: [facility]. Current Inpatient Medications: Current Inpatient Medications Medications (Trade) Dose Ordered Sig/Ida Route Start Time Stop Time Status Last Admin Dose Admin Enoxaparin Sodium (Lovenox Inj) 30 mg Q24H SQ 09/11/17 09:00 10/11/17 08:59 09/15/17 08:36 30 MG Acetaminophen (Tylenol Tab) 650 mg Q4H PRN PO 09/10/17 21:45 10/10/17 21:44 09/15/17 17:34 650 MG Ondansetron HCl (Zofran Inj) 4 mg Q6H PRN IV 09/10/17 21:45 10/10/17 21:44 Lorazepam (Ativan Inj) 0.5 mg Q4H PRN IV 09/10/17 21:45 10/10/17 21:44 Amitriptyline HCl (Elavil Tab) 10 mg HS PO 09/11/17 21:00 10/11/17 20:59 09/14/17 20:57 10 MG Divalproex Sodium (Depakote Extended Rel Tab) 250 mg TID PO 09/11/17 09:00 10/11/17 08:59 09/15/17 16:15 250 MG Folic Acid (Folvite Tab) 1 mg DAILY PO 09/11/17 09:00 10/11/17 08:59 09/15/17 08:32 1 MG Lorazepam (Ativan Tab) 1 mg HS PO 09/11/17 21:00 10/11/17 20:59 09/14/17 21:03 1 MG Ranitidine HCl (zANTac TAB) 150 mg BID PO 09/11/17 09:00 10/11/17 08:59 09/15/17 08:35 150 MG Sertraline HCl (Zoloft Tab) 100 mg BID PO 09/11/17 09:00 10/11/17 08:59 09/15/17 08:33 100 MG Trazodone HCl (Desyrel Tab) 100 mg BID PO 09/11/17 09:00 10/11/17 08:59 09/15/17 08:33 100 MG Venlafaxine HCl (effeXOR EXTENDED REL CAP) 150 mg BID PO 09/11/17 09:00 10/11/17 08:59 09/15/17 08:32 150 MG Ferrous Sulfate (Feosol Tab) 325 mg DAILY PO 09/11/17 09:00 10/11/17 08:59 09/15/17 08:35 325 MG Pantoprazole Sodium (Protonix Tab) 40 mg QAM PO 09/11/17 09:00 10/11/17 08:59 09/15/17 08:35 40 MG Tramadol HCl (Ultram Tab) not relieved by tylenol @ Q6H PRN PO 09/10/17 21:45 10/10/17 21:44 09/14/17 23:04 50 MG Docusate Sodium (coLACE CAP) 100 mg BID PO 09/14/17 21:00 10/14/17 20:59 09/15/17 08:32 100 MG Polyethylene (Miralax Powder Packet) 17 gm DAILY PO 09/15/17 09:00 10/15/17 08:59 09/15/17 08:35 17 GM Prednisone (PredniSONE TAB) 40 mg DAILY PO 09/15/17 09:00 10/15/17 08:59 09/15/17 08:33 40 MG Glycerin (Glycerin Adult Supp) 1 ea DAILY PRN AL 09/15/17 12:45 10/15/17 12:44
[2017-09-15] MEDS: LORAZEPAM 1 MG TAB PO SCH (20:27)
[2017-09-15] MEDS: AMITRIPTYLINE HCL 10 MG TAB PO SCH (20:29)
[2017-09-15] MEDS: TRAMADOL HCL 50 MG TAB PO PRN (20:33)
[2017-09-16 00:46] VITALS: BP 101/67; PULSE 77; TEMP 36.9; O2SAT 95
[2017-09-16 07:15] VITALS: BP 115/79; PULSE 80; TEMP 36.5; O2SAT 96
[2017-09-16] MEDS: FERROUS SULFATE 325 MG TAB PO SCH (07:57)
[2017-09-16] MEDS: PANTOprazole SOD 40 MG TAB PO SCH (07:57)
[2017-09-16] MEDS: VENLAFAXINE HCL XR 150 MG CAPXR PO SCH ×2 (07:58→20:56)
[2017-09-16] MEDS: RANITIDINE HCL 150 MG TAB PO SCH ×2 (07:58→20:56)
[2017-09-16] MEDS: DIVALPROEX 250 MG EXTENDED REL TAB PO SCH ×3 (07:58→20:54)
[2017-09-16] MEDS: TRAZODONE HCL 100 MG TAB PO SCH ×2 (07:58→20:56)
[2017-09-16] MEDS: ENOXAPARIN 30 MG/0.3 ML SYR SQ SCH (07:59)
[2017-09-16] MEDS: SERTRALINE HCL 100 MG TAB PO SCH ×2 (07:59→20:54)
[2017-09-16] MEDS: ACETAMINOPHEN 325 MG TAB PO PRN (08:01)
[2017-09-16] MEDS ORDERED: POLYETHYLENE (MIRALAX) 17 GM PACK PO PRN (09:00)
[2017-09-16] MEDS: TRAMADOL HCL 50 MG TAB PO PRN ×2 (14:32→21:19)
[2017-09-16 15:40] VITALS: BP 114/74; PULSE 85; TEMP 36.8; O2SAT 96
[2017-09-16] MEDS: LORAZEPAM 1 MG TAB PO SCH (20:53)
[2017-09-16] MEDS: AMITRIPTYLINE HCL 10 MG TAB PO SCH (20:55)
--- NOTE | 2017-09-16 21:56 | Progress Note ---
Medicine Progress Note Date & Time of Visit: Sep 16, 2017 at 13:24. Subjective 51 yo F with worsening abdominal pain c/w Chron's flare. Tolerating food for several days now including things like cheeseburgers. She has not been requiring pain medication overnight and had a BM yesterday. Despite all this improvement and normalization, she still denies that she feels well enough to go home and when I drilled down to her real fear, she simply is afraid to be alone and her daughter will be able to be there tomorrow. So she is asking to stay another day despite an improvement in her abdominal pain and symptoms. Objective Last 8 Hrs Date Time Temp Pulse Resp B/P (MAP) Pulse Ox O2 Delivery O2 Flow Rate FiO2 09/16/17 08:00 Room Air 09/16/17 07:15 36.5 80 18 115/79 (91) 96 Room Air Physical Exam: GEN: WNWD, in no acute distress, alert and appropriate. HEENT: NC/AT, normal sclerae, MMM CARDIO: reg rate, S1/2 heard without m/g/r LUNGS: CTA bilaterally, no crackles, rales or wheezes, good diaphragmatic excursion ABD: soft, NTND, no rebound or guarding, +BS. EXTREMITY: RP and DP palpable 2+ bilat, no LE swelling or edema, extremities are warm and well-perfused NEURO: CN 2-12 grossly intact MUSC: ambulatory, moves all extremities equally. No focal deficits. SKIN: warm and dry Laboratory Results: 09/15/17 06:43 09/15/17 06:43 Test 09/10/17 18:38 09/10/17 21:30 09/10/17 23:10 09/14/17 06:13 Erythrocyte Sedimentation Rate 22 mm/hr (0-21) Prothrombin Time 10.7 SECONDS (9.0-12.0) Prothromb Time International Ratio 1.0 (0.9-1.1) Estimated Average Glucose 103 mg/dl Hemoglobin A1c 5.2 % (4.5-5.6) Total Bilirubin 0.3 mg/dl (0.2-1) Direct Bilirubin < 0.1 mg/dl (0-0.2) Aspartate Amino Transf (AST/SGOT) 10 U/L (15-37) Alanine Aminotransferase (ALT/SGPT) 14 U/L (12-78) Alkaline Phosphatase 83 U/L (45-117) Total Protein 7.6 gm/dl (6.4-8.2) Albumin 3.6 gm/dl (3.4-5.0) Lipase 64 U/L (73-393) Valproic Acid (Depakene) Level 37 mcg/ml (50-100) Urine Color YELLOW Urine Appearance SL CLOUDY (CLEAR) Urine pH 6.5 (4.5-7.5) Urine Specific [place] <= 1.005 (1.000-1.030) Urine Protein TRACE (NEG) Urine Glucose (UA) NEG (NEG) Urine Ketones TRACE (NEG) Urine Occult Blood NEG (NEG) Urine Nitrite NEG (NEG) Urine Bilirubin NEG (NEG) Urine Urobilinogen NEG (NEG) Urine Leukocyte Esterase NEG (NEG) Urine RBC 0-4 /hpf (0-4) Urine WBC 1-5 /hpf (0-5) Urine Epithelial Cells >30 /lpf (0-5) Urine Calcium Oxalate Crystals PRESENT (NONE PRSENT) Urine Bacteria NEG (NEG) Immature Granulocyte % (Auto) 0.3 % White Blood Count 7.34 K/uL (4.8-10.8) Red Blood Count 3.76 M/uL (4.2-5.4) Hemoglobin 12.1 g/dL (12.0-16.0) Hematocrit 37.2 % (37-47) Mean Corpuscular Volume 98.9 fL (80-100) Mean Corpuscular Hemoglobin 32.2 pg (25-34) Mean Corpuscular Hemoglobin Concent 32.5 g/dl (32-36) Platelet Count 174 K/uL (130-400) Mean Platelet Volume 11.1 fL (7.4-10.4) Neutrophils (%) (Auto) 46.9 % Lymphocytes (%) (Auto) 44.3 % Monocytes (%) (Auto) 8.4 % Eosinophils (%) (Auto) 0.0 % Basophils (%) (Auto) 0.1 % Neutrophils # (Auto) 3.44 K/uL (1.4-6.5) Lymphocytes # (Auto) 3.25 K/uL (1.2-3.4) Monocytes # (Auto) 0.62 K/uL (0.11-0.59) Eosinophils # (Auto) 0.00 K/uL (0-0.5) Basophils # (Auto) 0.01 K/uL (0-0.2) Immature Granulocyte # (Auto) 0.02 K/uL (0.00-0.02) Test 09/15/17 06:43 09/15/17 20:11 Red Blood Count 4.33 M/uL (4.2-5.4) Mean Corpuscular Volume 98.2 fL (80-100) Mean Corpuscular Hemoglobin 32.8 pg (25-34) Mean Corpuscular Hemoglobin Concent 33.4 g/dl (32-36) RDW Standard Deviation 45.6 fL (36.4-46.3) RDW Coefficient of Variation 12.6 % (11.5-14.5) Mean Platelet Volume 11.4 fL (7.4-10.4) Anion Gap 8.0 mmol/L (3-11) Est Creatinine Clear Calc Drug Dose 93.9 ml/min Estimated GFR () 122.8 Estimated GFR (Non- 106.0 BUN/Creatinine Ratio 19.9 (10-20) Calcium Level 9.4 mg/dl (8.5-10.1) Magnesium Level 2.0 mg/dl (1.8-2.4) Bedside Glucose 144 mg/dl (70-90) Last 24 Hours Test 09/15/17 16:46 09/15/17 20:11 Bedside Glucose 141 mg/dl 144 mg/dl Assessment & Plan 51 yo F with worsening abdominal pain c/w Chron's flare. Tolerating food for several days now including things like cheeseburgers. She has not been requiring pain medication overnight and had a BM yesterday. Despite all this improvement and normalization, she still denies that she feels well enough to go home and when I drilled down to her real fear, she simply is afraid to be alone and her daughter will be able to be there tomorrow. So she is asking to stay another day despite an improvement in her abdominal pain and symptoms. 1. Abdominal pain 2/2 chron's flare-controlled with min medications, tolerating PO for several days. BM yesterday. Ambulatory. GI consulted and agree with prednisone at this time with continued Remicaide as outpatient. Pt counseled to quit smoking as this may worsen the disease. 2. R hip and leg pain s/p fall-resolved; 3. Mood disorder-cont Elavil 10 qHS, Lorazepam, Sertraline, Trazodone and Effexor per home med regimen. DVT px: Lovenox subQ. Full Code Dispo-to home in am. DO Stella Rod Hospitalist Consultants: [facility]. Current Inpatient Medications: Current Inpatient Medications Medications (Trade) Dose Ordered Sig/Ida Route Start Time Stop Time Status Last Admin Dose Admin Enoxaparin Sodium (Lovenox Inj) 30 mg Q24H SQ 09/11/17 09:00 10/11/17 08:59 09/16/17 07:59 30 MG Acetaminophen (Tylenol Tab) 650 mg Q4H PRN PO 09/10/17 21:45 10/10/17 21:44 09/16/17 08:01 650 MG Ondansetron HCl (Zofran Inj) 4 mg Q6H PRN IV 09/10/17 21:45 10/10/17 21:44 Lorazepam (Ativan Inj) 0.5 mg Q4H PRN IV 09/10/17 21:45 10/10/17 21:44 Amitriptyline HCl (Elavil Tab) 10 mg HS PO 09/11/17 21:00 10/11/17 20:59 09/15/17 20:29 10 MG Divalproex Sodium (Depakote Extended Rel Tab) 250 mg TID PO 09/11/17 09:00 10/11/17 08:59 09/16/17 07:58 250 MG Folic Acid (Folvite Tab) 1 mg DAILY PO 09/11/17 09:00 10/11/17 08:59 09/16/17 07:58 1 MG Lorazepam (Ativan Tab) 1 mg HS PO 09/11/17 21:00 10/11/17 20:59 09/15/17 20:27 1 MG Ranitidine HCl (zANTac TAB) 150 mg BID PO 09/11/17 09:00 10/11/17 08:59 09/16/17 07:58 150 MG Sertraline HCl (Zoloft Tab) 100 mg BID PO 09/11/17 09:00 10/11/17 08:59 09/16/17 07:59 100 MG Trazodone HCl (Desyrel Tab) 100 mg BID PO 09/11/17 09:00 10/11/17 08:59 09/16/17 07:58 100 MG Venlafaxine HCl (effeXOR EXTENDED REL CAP) 150 mg BID PO 09/11/17 09:00 10/11/17 08:59 09/16/17 07:58 150 MG Ferrous Sulfate (Feosol Tab) 325 mg DAILY PO 09/11/17 09:00 10/11/17 08:59 09/16/17 07:57 325 MG Pantoprazole Sodium (Protonix Tab) 40 mg QAM PO 09/11/17 09:00 10/11/17 08:59 09/16/17 07:57 40 MG Tramadol HCl (Ultram Tab) not relieved by tylenol @ Q6H PRN PO 09/10/17 21:45 10/10/17 21:44 09/15/17 20:33 50 MG Docusate Sodium (coLACE CAP) 100 mg BID PO 09/14/17 21:00 10/14/17 20:59 Future Hold 09/15/17 08:32 100 MG Prednisone (PredniSONE TAB) 40 mg DAILY PO 09/15/17 09:00 10/15/17 08:59 09/16/17 07:57 40 MG Glycerin (Glycerin Adult Supp) 1 ea DAILY PRN ND 09/15/17 12:45 10/15/17 12:44 Polyethylene (Miralax Powder Packet) 17 gm DAILY PRN PO 09/16/17 09:00 10/15/17 08:59
[2017-09-17 00:07] VITALS: BP 92/57; PULSE 86; TEMP 36.8; O2SAT 95
[2017-09-17 07:09] VITALS: BP 93/64; PULSE 75; TEMP 36.4; O2SAT 98
[2017-09-17] MEDS: SERTRALINE HCL 100 MG TAB PO SCH (07:51)
[2017-09-17] MEDS: RANITIDINE HCL 150 MG TAB PO SCH (07:51)
[2017-09-17] MEDS: DIVALPROEX 250 MG EXTENDED REL TAB PO SCH (07:51)
[2017-09-17] MEDS: FERROUS SULFATE 325 MG TAB PO SCH (07:52)
[2017-09-17] MEDS: PANTOprazole SOD 40 MG TAB PO SCH (07:52)
[2017-09-17] MEDS: ENOXAPARIN 30 MG/0.3 ML SYR SQ SCH (07:53)
[2017-09-17] MEDS: VENLAFAXINE HCL XR 150 MG CAPXR PO SCH (07:53)
[2017-09-17] MEDS: TRAZODONE HCL 100 MG TAB PO SCH (07:53)
[2017-09-17] MEDS ORDERED: ULT50X PO (10:46)
[2017-09-17] MEDS ORDERED: PRD20 PO (11:00)
[2017-09-17] MEDS ORDERED: PRED-301 PO (11:00)
--- NOTE | 2017-09-17 11:09 | Discharge Summary ---
Discharge Summary Date of Service Sep 17, 2017. Discharge Summary Admission Date: Sep 10, 2017 at 21:20 Discharge Date: Sep 17, 2017 Discharge Disposition: Home Principal Diagnosis: Abdominal pain 2/2 Chron's colitis MSK pain in R hip and leg-resolved Mood disorder Procedures: ABD/PELVIS IV CONTRAST ONLY CT DOSE: 269.79 mGy.cm HISTORY: Abdominal pain. Crohn's disease. Lung bases are clear. h/o Frohn's, ab pain >est. in RLQ TECHNIQUE: Multiaxial CT images of the abdomen and pelvis were performed following the use of intravenous contrast. A dose lowering technique was utilized adhering to the principles of ALARA. COMPARISON STUDY: 07/06/2017 FINDINGS: Lung bases are clear. There is uniform throughout. Gallbladder is negative for distention. Kidneys and 8 uniformly. Spleen is unremarkable as is the pancreas. The distal and/or terminal ileum continues show wall thickening. The thickness of the wall as well as linear extent of the wall thickening appears to be in general similar as compared to the prior study. There is a changing caliber of the small bowel at the right anterior abdomen but this appears to be similar to perhaps somewhat less prominent as compared to the prior study. Appearance does suggest active Crohn's disease of this is perhaps at least slightly improved from the prior study. Colonic wall thickening and reactive distention is slightly improved. Minimal infiltrative change of the mesentery is stable to slightly improved with reactive skye change in the mid mesentery slightly diminished. No abscess or collection is appreciated. IMPRESSION: 1. Stable to slightly improved appearance to the right lower quadrant compared to the prior exam. 2. Small bowel wall thickening is considered stable to perhaps slightly diminished with the colonic distention stable to slightly diminished as well. 3. Infiltrative change of the mesentery with associated regional nodes stable to slightly improved. 4. No evidence for abscess or collection. 5. This study continues to suggest active Crohn's disease although overall this study is perhaps minimally improved compared to the prior exam. Vaccinations: None. Consultations: [facility]. Pending Studies/Follow-Up: see instructions below. Medication Reconciliation New Medications: Prednisone (Prednisone) 5 Mg Tab 5 MG PO UD for 53 Days, #84 TAB Taper start 40mg/dy til Mon, 09/22. Then start 35mg/dy and dec by 5mg each Fri after. Use combo of 20mg and 5mg pills. Prednisone (Prednisone) 20 Mg Tab 20 MG PO UD for 53 Days, #36 TAB Taper start 40mg/dy til Mon, 09/22. Then start 35mg/dy and dec by 5mg each Fri after. Use combo of 20mg and 5mg pills. Tramadol HCl (Tramadol HCl) 50 Mg Tab 25 MG PO Q8H PRN for severe pain for 7 Days, #10 TAB Continued Medications: Albuterol Hfa (Ventolin Hfa) 200 Puffs/27771 Mcg Aers 2-4 PUFFS INH Q6H PRN for Shortness of Breath, INHALER Amitriptyline HCl (Amitriptyline HCl) 10 Mg Tab 10 MG PO HS Divalproex Sodium (Depakote Er) 250 Mg Tab 250 MG PO TID, TAB Estradiol (Estrace) 1 Mg Tab 1 MG PO UD, TAB TAKE 1 TAB DAILY FOR 21 DAYS, STOP FOR 7 DAYS, REPEAT Ferrous Sulfate (Iron) 325 Mg Tab 1 TAB PO DAILY Folic Acid (Folvite) 1 Mg Tab 1 MG PO DAILY, TAB Loperamide Hcl (Imodium) 2 Mg Cap 2 MG PO QID PRN for Diarrhea, CAP Loratadine (Claritin) 10 Mg Tab 10 MG PO DAILY PRN for Allergy Symptoms, TAB Lorazepam (Ativan) 1 Mg Tab 1 MG PO HS, TAB Omeprazole (Prilosec) 20 Mg Capcr 20 MG PO QAM, CAP Ranitidine (Zantac) 150 Mg Tab 150 MG PO BID, TAB Sertraline (Zoloft) 100 Mg Tab 100 MG PO BID, TAB Trazodone Hcl (Trazodone) 100 Mg Tab 100-150 MG PO BID, TAB Venlafaxine Hcl (Venlafaxine Hcl Er) 150 Mg Tab 150 MG PO BID, TAB Discontinued Medications: Prednisone Tab (Prednisone) 10 Mg Tab 10 MG PO TAPER UD, TAB Admission Information HPI (per Admitting provider): HISTORY OF PRESENT ILLNESS: History obtained from patient and records. Medical history is significant for Crohn's disease , past tobacco and alcohol abuse, hyperlipidemia, mood disorder. Recent confinement June 2017 for Crohn's colitis flare. CAT scan showed progression of Crohn's colitis, element of stricturing disease. Patient transferred to [facility] for possible surgical opinion. Patient confined for 10 days. No surgery done. Started on TPN, prednisone taper. Patient comfortable at time of discharge to home. Subsequently started Remicade outpatient by [facility] specialist. Improved symptoms. Recent course of steroids last dose was last week. Last few days, the patient noted achy hypogastric discomfort, worsening, initially constipated. Patient saw her pain medicine physician who recommended MiraLax. Loose stools noted since, 15 episodes a day, nonbloody, No fever, admits to some chills, some nausea, no vomiting. Intractable pain at the Emergency Room. Physical Exam (per Admitting): PHYSICAL EXAMINATION: VITAL SIGNS: Blood pressure noted to be 106/50, pulse rate noted to be 90, RR 20, temperature 37.1, sats 98 on room air. GENERAL: Noted to be anxious, uncomfortable, no respiratory distress. SKIN: Normal color, warm. HEENT: [place] palpebral conjuctivae. No ptosis, dry buccal mucosa. NECK: Supple. No tenderness. CHEST: Decreased breath sounds, no tenderness. CV: Regular rate and rhythm, palpable lower extremity pulses. ABDOMEN: Hypogastric, right-sided abdominal tenderness . No organomegaly EXTREMITIES: No edema, no tenderness, no gross deformities. NEUROLOGIC: Coherent. No gross focality except for some resting hand tremors. . Hospital Course 1. Abdominal pain 2/2 chron's flare-controlled with min medications, tolerating PO for several days. BM yesterday. Ambulatory. GI consulted and agree with prednisone at this time with continued Remicaide as outpatient. Pt counseled to quit smoking as this may worsen the disease. 2. R hip and leg pain s/p fall-resolved, ambulating at baseline. 3. Mood disorder-cont Elavil 10 qHS, Lorazepam, Sertraline, Trazodone and Effexor per home med regimen. On discharge her pain was improved and she had reliably been tolerating PO for several days including solids such as cheeseburgers. Her pain was difficult to determine as she would consistently guard and pull away prior to my actual touch on her abdomen. However, aside from this, her physical exam at discharge was otherwise unremarkable. She was discharged in good condition. Total time spent on discharge = 60 minutes This includes examination of the patient, discharge planning, medication reconciliation, and communication with other providers. Discharge Instructions [address] [address] Discharge Medical Patient Name: Izzy Cruz Unit Number: [id number] Date of : 1965 Patient Status: Admitted Inpatient Attending Doctor: Shanice Evangelista DO DI: Medical v4 Discharge Instructions Date of Service Sep 17, 2017. Admission Reason for Admission: Crohn's Disease Discharge Discharge Diagnosis / Problem: flare of chron's disease Discharge Goals Goal(s): Prevent Disease Progression Activity Recommendations Activity Limitations: per Instructions/Follow-up section . Instructions / Follow-Up Instructions / Follow-Up Please take all medications as instructed. Prednisone Taper start 40mg/dy until Mon, 09/22. Then change to 35mg/dy and decrease by 5mg each Fri after. Use combo of 20mg and 5mg pills to achieve the required dose. Treatment will last roughly 7 weeks. Please follow up with [facility] as instructed. It is recommended to see your primary care provider within one week of discharge. Someone from our staff will contact you tomorrow regarding scheduling of this as clinics are closed today. Thank you for understanding. It was a pleasure taking care of you! Call if you have any questions or problems. You can reach a [facility] hospitalist on duty at [facility] 24 hours a day by calling [phone]. Take care of yourself. Shanice Evangelista DO [facility] Hospitalist Current Hospital Diet Patient's current hospital diet: Regular Diet Discharge Diet Recommended Diet: Regular Diet Pending Studies Studies pending at discharge: no Laboratory Results Hemoglobin A1c Test 09/10/17 18:38 Range/Units Estimated Average Glucose 103 mg/dl Hemoglobin A1c 5.2 4.5-5.6 % Medical Emergencies . Who to Call and When: Medical Emergencies: If at any time you feel your situation is an emergency, please call 911 immediately. . Non-Emergent Contact Non-Emergency issues call your: Primary Care Provider . . "Provider Documentation" section prepared by Shanice Evangelista. . VTE Core Measure Inpt VTE Proph given/why not?: Enoxaparin (Lovenox)SQ [place] Drug Monitoring Program Search Results: patient reviewed within database, no issues identified Additional Copies To Kyung Parker M.D.
[2017-09-17 11:57] VITALS: BP 93/64; PULSE 75; TEMP 36.4; O2SAT 98
== END 2017-09-17 13:15 | disposition home or self-care (01) | DRG 387 ==
LOC: C.EDB 18:00 → C.MED 21:20 → ENRESERV 21:39
PROVIDERS: ADMIT Internal Medicine; ATTEND Hospitalist
DX: K50.80 Crohn's disease of both small and large intestine without complications (principal); E78.5 Hyperlipidemia, unspecified; F39 Unspecified mood [affective] disorder; M79.604 Pain in right leg; M25.551 Pain in right hip; K64.8 Other hemorrhoids; F17.200 Nicotine dependence, unspecified, uncomplicated; T47.2X5A Adverse effect of stimulant laxatives, initial encounter; R19.7 Diarrhea, unspecified; R73.09 Other abnormal glucose; T38.0X5A Adverse effect of glucocorticoids and synthetic analogues, initial encounter; E83.42 Hypomagnesemia; E87.6 Hypokalemia; Y92.019 Unspecified place in single-family (private) house as the place of occurrence of the external cause; Z83.79 Family history of other diseases of the digestive system

== ENCOUNTER 2018-01-01 14:40 | Inpatient (IN) | payer OTHER ==
[~2018-01-01] VITALS: Ht 160 cm; Wt 68.0 kg
[~2018-01-01 14:40] MED LIST changes: -DICY10CA55 PO; -PRED10TA PO; -PRED20TA PO
[2018-01-01] MEDS ORDERED: SODIUM CHLORIDE 0.9% 1000ML 1,000 ML IV STA (15:54)
[2018-01-01 16:24] LABS: BASO % 0.1 %; BASO ABS # 0.01 K/uL (0-0.2); HEMATOCRIT 37.9 % (37-47); HEMOGLOBIN 12.9 g/dL (12.0-16.0); IG# 0.11 K/uL (0.00-0.02); LYMPH % 8.5 %; LYMPH ABS # 0.83 K/uL (1.2-3.4); MEAN CELL VOLUME 97.4 fL (80-100); MEAN CORPUSCULAR HEMOGLOBIN 33.2 pg (25-34); MEAN PLATELET VOLUME 11.3 fL (7.4-10.4); MONO % 3.1 %; NEUT % 87.2 %; NEUT ABS # 8.51 K/uL (1.4-6.5); PLATELET COUNT 242 K/uL (130-400); RED CELL DISTRIBUTION WIDTH CV 12.9 % (11.5-14.5); RED CELL DISTRIBUTION WIDTH SD 45.5 fL (36.4-46.3); WHITE BLOOD COUNT 9.76 K/uL (4.8-10.8)
[2018-01-01] MEDS ORDERED: OPTIRAY 320 IV PRN (16:30)
[2018-01-01 16:49] LABS: BLOOD UREA NITROGEN 18 mg/dl (7-18); CALCIUM 8.9 mg/dl (8.5-10.1); CARBON DIOXIDE 25 mmol/L (21-32); CREATININE 0.95 mg/dl (0.60-1.20); GLUCOSE 189 mg/dl (70-99); POTASSIUM 3.8 mmol/L (3.5-5.1); SODIUM 137 mmol/L (136-145)
[2018-01-01] MEDS ORDERED: DICY10CA55 PO (17:01)
[2018-01-01] MEDS ORDERED: PRED20TA PO (17:01)
--- NOTE | 2018-01-01 17:28 | EMERGENCY ROOM VISIT NOTE ---
History First contact with patient: 15:30 Chief Complaint: ABNORMAL LABS Stated Complaint: ABNORMAL BLOOD WORK, SENT FROM DOCTOR History of Present Illness The patient is a 52 year old female who presents to the Emergency Room with complaints of abnormal blood work. The patient reports that she was discharged from [facility] 1 week ago for a bowel obstruction. 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 She states that since she has been discharged, she has had some persistent abdominal cramping which is constant. She has had one bowel movement and has been taking MiraLAX on a regular basis. The pain is not worsened with movement or eating. She rates the discomfort a 4/10 and states the pain is throughout her abdomen. She does admit to being more fatigued than usual. She states that she was seen by Varsha Bautista of gastroenterology today and had blood work and abdominal x- ray ordered. She had these and soon after received a call to come to the emergency department due to abnormal lab results. The patient does admit to history of Crohn's disease. She is currently taking Remicade for this. She denies cough, shortness of breath, urinary symptoms or blood in her stools. She reports that she has been feeling chills at home, but has not taken her temperature and is unsure if she has a fever. Review of Systems A complete 10 point review of systems was reviewed with the patient with pertinent positives and negatives as per history of present illness. All else were negative. Past Medical/Surgical History Medical Problems: (1) Abdominal pain (2) Bowel obstruction (3) Crohn's colitis (4) Crohn's disease (regional enteritis) Social History Smoking Status: Current Every Day Smoker Alcohol Use: none Drug Use: none Marital Status: Occupation Status: disabled Current/Historical Medications Scheduled Amitriptyline HCl (Amitriptyline HCl), 10 MG PO HS Dicyclomine Hcl (Bentyl), 10 MG PO TID Divalproex Sodium (Depakote Er), 250 MG PO TID Estradiol (Estrace), 1 MG PO UD Ferrous Sulfate (Iron), 1 TAB PO DAILY Folic Acid (Folvite), 1 MG PO DAILY Lorazepam (Ativan), 1 MG PO HS Omeprazole (Prilosec), 20 MG PO QAM Prednisone (Prednisone), 40 MG PO UD Sertraline (Zoloft), 100 MG PO BID Trazodone Hcl (Trazodone), 100-150 MG PO BID Venlafaxine Hcl (Venlafaxine Hcl Er), 150 MG PO BID Scheduled PRN Albuterol Hfa (Ventolin Hfa), 2-4 PUFFS INH Q6H PRN for Shortness of Breath Loperamide Hcl (Imodium), 2 MG PO QID PRN for Diarrhea Loratadine (Claritin), 10 MG PO DAILY PRN for Allergy Symptoms Tramadol HCl (Tramadol HCl), 25 MG PO Q8H PRN for severe pain Physical Exam Vital Signs Date Time Temp Pulse Resp B/P (MAP) Pulse Ox O2 Delivery O2 Flow Rate FiO2 01/01/18 20:15 135/108 01/01/18 19:17 83 20 124/81 95 Room Air 01/01/18 18:57 37.2 80 22 126/88 97 Room Air 01/01/18 17:20 88 22 124/84 97 Room Air 01/01/18 16:14 89 20 108/66 94 Room Air 01/01/18 14:42 37.2 103 18 116/76 97 Physical Exam VITALS: Vitals are noted on the nurse's note and reviewed by myself. Vital signs stable. GENERAL: This is a 52-year-old female, in no acute distress, nondiaphoretic, well-developed well-nourished. SKIN: The skin was without rashes. EARS: External auditory canals clear, tympanic membranes pearly nicholas without erythema or effusion bilaterally. EYES: Pupils equal round and reactive to light and accommodation. Conjunctivae without injection, sclerae without icterus. MOUTH: Mucous membranes moist. Tonsils are not enlarged. Pharynx without erythema or exudate. HEART: Regular rate and rhythm without murmurs gallops or rubs. LUNGS: Clear to auscultation bilaterally without wheezes, rales or rhonchi. No retractions or accessory muscle use. ABDOMEN: Positive bowel sounds x 4. Soft, nondistended. There is tenderness to palpation in the right upper quadrant and right mid abdomen. No guarding or rebound tenderness. NEURO: Patient was alert and oriented to person place and time. Medical Decision & Procedures ER Provider Diagnostic Interpretation: ABD/PELVIS IV AND ORAL CONT FINDINGS: Lung bases remain clear. Liver spleen and pancreas are uniform. Kidneys enhance uniformly. There is a considerable increase in fecal load within the colon consistent with fecal stasis. Wall thickening of the distal and terminal ileum persists and is similar compared to the prior study. Small bowel distention proximal to the area of edematous change is increased compared to the prior exam. Colon is negative for significant distention. There is no free fluid within the pelvic cul-de-sac. There is no abscess or collection. IMPRESSION: 1. Wall thickening of the distal and terminal ileum is similar in configuration and extent as compared to the prior study. 2. Findings consistent with distal small bowel obstructive change proximal to this area of small bowel wall edema. 3. This suggests an inflammatory bowel process such as Crohn's disease. 4. Increased fecal load throughout the colon consistent with fecal stasis. 5. No evidence for abscess or collection. Laboratory Results 01/01/18 16:11 Red Blood Count 3.89, Mean Corpuscular Volume 97.4, Mean Corpuscular Hemoglobin 33.2, Mean Corpuscular Hemoglobin Concent 34.0, Mean Platelet Volume 11.3, Neutrophils (%) (Auto) 87.2, Lymphocytes (%) (Auto) 8.5, Monocytes (%) (Auto) 3.1, Eosinophils (%) (Auto) 0.0, Basophils (%) (Auto) 0.1, Neutrophils # (Auto) 8.51, Lymphocytes # (Auto) 0.83, Monocytes # (Auto) 0.30, Eosinophils # (Auto) 0.00, Basophils # (Auto) 0.01 01/01/18 16:11 Test 01/01/18 16:11 01/01/18 16:17 01/01/18 18:40 01/01/18 18:42 White Blood Count 9.76 K/uL (4.8-10.8) Red Blood Count 3.89 M/uL (4.2-5.4) Hemoglobin 12.9 g/dL (12.0-16.0) Hematocrit 37.9 % (37-47) Mean Corpuscular Volume 97.4 fL (80-100) Mean Corpuscular Hemoglobin 33.2 pg (25-34) Mean Corpuscular Hemoglobin Concent 34.0 g/dl (32-36) Platelet Count 242 K/uL (130-400) Mean Platelet Volume 11.3 fL (7.4-10.4) Neutrophils (%) (Auto) 87.2 % Lymphocytes (%) (Auto) 8.5 % Monocytes (%) (Auto) 3.1 % Eosinophils (%) (Auto) 0.0 % Basophils (%) (Auto) 0.1 % Neutrophils # (Auto) 8.51 K/uL (1.4-6.5) Lymphocytes # (Auto) 0.83 K/uL (1.2-3.4) Monocytes # (Auto) 0.30 K/uL (0.11-0.59) Eosinophils # (Auto) 0.00 K/uL (0-0.5) Basophils # (Auto) 0.01 K/uL (0-0.2) RDW Standard Deviation 45.5 fL (36.4-46.3) RDW Coefficient of Variation 12.9 % (11.5-14.5) Immature Granulocyte % (Auto) 1.1 % Immature Granulocyte # (Auto) 0.11 K/uL (0.00-0.02) Erythrocyte Sedimentation Rate 23 mm/hr (0-21) Anion Gap 10.0 mmol/L (3-11) Est Creatinine Clear Calc Drug Dose 63.4 ml/min Estimated GFR () 79.3 Estimated GFR (Non- 68.4 BUN/Creatinine Ratio 18.9 (10-20) Calcium Level 8.9 mg/dl (8.5-10.1) C-Reactive Protein < 0.29 mg/dl (0-0.29) Urine Color YELLOW Urine Appearance CLEAR (CLEAR) Urine pH 6.5 (4.5-7.5) Urine Specific [place] 1.009 (1.000-1.030) Urine Protein NEG (NEG) Urine Glucose (UA) TRACE (NEG) Urine Ketones NEG (NEG) Urine Occult Blood NEG (NEG) Urine Nitrite NEG (NEG) Urine Bilirubin NEG (NEG) Urine Urobilinogen NEG (NEG) Urine Leukocyte Esterase NEG (NEG) Bedside Lactic Acid Venous 2.43 mmol/L (0.90-1.70) Lactic Acid Level 2.0 mmol/L (0.4-2.0) Medications Administered Medications (Trade) Dose Ordered Sig/Ida Route Start Time Stop Time Status Last Admin Dose Admin Sodium Chloride 1,000 ml @ 999 mls/hr Q1H1M STAT IV 01/01/18 15:54 01/01/18 16:54 DC 01/01/18 16:12 999 MLS/HR ED Course The patient was evaluated as above. Labs were drawn and IV access was obtained. Patient was medicated with 1 L normal saline solution. CT of the abdomen and pelvis were performed and read by radiology as above. Patient was reevaluated and findings were discussed. She is agreeable to admission. Case was discussed with the [facility] hospitalist, Dr. Sargent. They agreed to evaluate the patient for admission. He did request that I contact general surgery to touch base about the patient. Case was discussed with Max Cooper PA-C with general surgery. He agrees to evaluate the patient in the ED and will follow along with the patient's hospitalization. Medical Decision Differential diagnosis includes ischemic colitis, Crohn's flare, small bowel obstruction, fistula, among others. The patient is a 52-year-old female who presents today complaining of abdominal cramping. Patient was recently discharged from [facility] after admission for a bowel obstruction. She had outpatient labs performed which showed an elevated lactic acid. There is no evidence of infection on exam. 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 She was concerned regarding the patient's presentation and felt that she needed further evaluation and possible imaging. CT scan of the abdomen and pelvis with both IV and oral contrast was ordered. Patient was hydrated with 1 L of normal saline solution and lactic acid was repeated following this and had improved significantly. CT did show evidence of a small bowel obstruction with inflammatory changes. NG tube was ordered. Consultation was made with the hospitalist service, who agreed to admit the patient but requested consultation with general surgery. General surgery was consulted and agreed to evaluate the patient in the ED. Medication Reconcilliation Current Medication List: was personally reviewed by me Blood Pressure Screening Patient's blood pressure: Normal blood pressure Impression Primary Impression: Small bowel obstruction Departure Information Referrals Kyung Parker M.D. (PCP) Patient Instructions My [facility]
--- NOTE | 2018-01-01 19:18 | DIAGNOSTIC IMAGING REPORT ---
ABD/PELVIS IV AND ORAL CONT CT DOSE: 428.01 mGy.cm HISTORY: Pain. Bowel obstruction. right sided abdominal pain, elevated lactic, recent sbo TECHNIQUE: Multiaxial CT images of the abdomen and pelvis were performed following the use of intravenous and oral contrast. A dose lowering technique was utilized adhering to the principles of ALARA. COMPARISON STUDY: 09/10/2017 FINDINGS: Lung bases remain clear. Liver spleen and pancreas are uniform. Kidneys enhance uniformly. There is a considerable increase in fecal load within the colon consistent with fecal stasis. Wall thickening of the distal and terminal ileum persists and is similar compared to the prior study. Small bowel distention proximal to the area of edematous change is increased compared to the prior exam. Colon is negative for significant distention. There is no free fluid within the pelvic cul-de-sac. There is no abscess or collection. IMPRESSION: 1. Wall thickening of the distal and terminal ileum is similar in configuration and extent as compared to the prior study. 2. Findings consistent with distal small bowel obstructive change proximal to this area of small bowel wall edema. 3. This suggests an inflammatory bowel process such as Crohn's disease. 4. Increased fecal load throughout the colon consistent with fecal stasis. 5. No evidence for abscess or collection. The above report was generated using voice recognition software. It may contain grammatical, syntax or spelling errors. Electronically signed by: Jose L Rutledge M.D. 01/01/2018 7:16 PM Dictated Date/Time: 01/01/2018 7:11 PM
--- NOTE | 2018-01-01 20:51 | History and Physical ---
History & Physical Date & Time of Service: Jan 01, 2018 at 20:51 . Chief Complaint: nausea, abdominal pain . Primary Care Physician: Kyung Parker M.D. . History of Present Illness Source: patient, clinic records, hospital records 52-year-old female followed by Dr. Parker for Family Medicine as well as CHIKI Pearce and Dr. Alfonso for Gastroenterology. History of Crohn's disease, most recently treated with infliximab and budesonide. Hospitalized in September with a bowel obstruction resolved with conservative management. Admitted to [facility] about 2 weeks ago with recurrent bowel obstruction. Exploratory laparotomy was discussed; the patient preferred not to proceed until she consulted further with her gastroenterologists. Her symptoms improved and she was discharged on 12/24/17. Since her discharge from [facility], she has experienced nausea and crampy abdominal pain. Abdominal pain is located mostly in the mid abdomen and does not radiate. It is associated with nausea, but no vomiting, diarrhea, melena, or hematochezia. Took dicyclomine and tramadol with some relief, but transient. Last bowel movement was 5 days prior to admission. . Past Medical/Surgical History Chronic and Resolved Medical Problems: (1) Bipolar disorder Status: Chronic (2) Crohn's disease (regional enteritis) Status: Chronic (3) Depression Status: Chronic (4) Dyslipidemia Status: Chronic Surgical Problems: (1) Status post bilateral oophorectomy Status: Chronic (2) Status post hysterectomy Permanent Comment: endometriosis Status: Chronic (3) Status post left shoulder surgery Status: Chronic . Family History FATHER Diabetes mellitus Congestive heart failure MOTHER Diabetes mellitus Myocardial infarction BROTHER Lung cancer Social History Smoking Status: Former Smoker Alcohol Use: heavy drinker in the past, but no consumption for many years Drug Use: none Marital Status: Housing status: lives with family Occupational Status: disabled Allergies Coded Allergies: Naproxen (Verified Allergy, Severe, HIVES, SWELLING, 01/01/18) Home Medications Scheduled Amitriptyline HCl (Amitriptyline HCl), 10 MG PO HS Dicyclomine Hcl (Bentyl), 10 MG PO TID Divalproex Sodium (Depakote Er), 250 MG PO TID Estradiol (Estrace), 1 MG PO UD Ferrous Sulfate (Iron), 1 TAB PO DAILY Folic Acid (Folvite), 1 MG PO DAILY Lorazepam (Ativan), 1 MG PO HS Omeprazole (Prilosec), 20 MG PO QAM Prednisone (Prednisone), 40 MG PO UD Sertraline (Zoloft), 100 MG PO BID Trazodone Hcl (Trazodone), 100-150 MG PO BID Venlafaxine Hcl (Venlafaxine Hcl Er), 150 MG PO BID Scheduled PRN Albuterol Hfa (Ventolin Hfa), 2-4 PUFFS INH Q6H PRN for Shortness of Breath Loperamide Hcl (Imodium), 2 MG PO QID PRN for Diarrhea Loratadine (Claritin), 10 MG PO DAILY PRN for Allergy Symptoms Tramadol HCl (Tramadol HCl), 25 MG PO Q8H PRN for severe pain Review of Systems Constitutional: + problem reported (weight fluctuates), No fever Eyes: No worsening of vision, No diplopia ENT: + sore throat (after recent NGT insertion), No nasal symptoms Respiratory: + cough (chronic, unchanged), + shortness of breath (chronic, unchanged) Cardiovascular: No chest pain, No edema, No palpitations Abdomen: + problem reported (as noted above in HPI) Musculoskeletal: + joint pain (arthritic pain in hands and knees) Genitourinary - Female: No dysuria, No hematuria Neurologic: + problem reported (Occasional headaches) Endocrine: No excessive thirst, No excessive urination Hematologic / Lymphatic: No abnormal bleeding/bruising Integumentary: No rash, No new/changing skin lesions Physical Exam Vital Signs Date Time Temp Pulse Resp B/P (MAP) Pulse Ox O2 Delivery O2 Flow Rate FiO2 01/01/18 20:15 135/108 01/01/18 19:17 83 20 124/81 95 Room Air 01/01/18 18:57 37.2 80 22 126/88 97 Room Air 01/01/18 17:20 88 22 124/84 97 Room Air 01/01/18 16:14 89 20 108/66 94 Room Air 01/01/18 14:42 37.2 103 18 116/76 97 General Appearance: WD/WN, no apparent distress Head: normocephalic, atraumatic Eyes: normal inspection, PERRL, EOMI, sclerae normal, + pertinent finding ( Conjunctivae normal) ENT: hearing grossly normal, + pertinent finding (nasogastric tube inserted in right naris; edentulous) Neck: supple, no adenopathy, thyroid normal, trachea midline Respiratory/Chest: lungs clear, no respiratory distress Cardiovascular: regular rate, rhythm, no edema, no gallop, no JVD, + systolic murmur (I/ systolic murmur at base) Abdomen/GI: + pertinent finding (quiet bowel sounds, slightly distended, soft, diffuse moderate tenderness without rebound or guarding; no palpable masses or hepatosplenomegaly) Extremities/Musculoskelatal: normal inspection, no calf tenderness Neurologic/Psych: 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 II-XII nml as tested (PERRL, EOMI, no facial palsy, no dysarthria), no motor/sensory deficits (motor strength upper and lower extremities grossly intact), alert, normal mood/affect, oriented x 3, + pertinent finding (patellar reflexes 1/2 bilaterally) Skin: normal color, warm/dry, no rash Lymphatic: no adenopathy (cervical) Diagnostics Laboratory Results Results Past 24 Hours Test 01/01/18 16:11 01/01/18 16:17 01/01/18 18:40 01/01/18 18:42 Range/Units White Blood Count 9.76 4.8-10.8 K/uL Red Blood Count 3.89 4.2-5.4 M/uL Hemoglobin 12.9 12.0-16.0 g/dL Hematocrit 37.9 37-47 % Mean Corpuscular Volume 97.4 80-100 fL Mean Corpuscular Hemoglobin 33.2 25-34 pg Mean Corpuscular Hemoglobin Concent 34.0 32-36 g/dl Platelet Count 242 130-400 K/uL Mean Platelet Volume 11.3 7.4-10.4 fL Neutrophils (%) (Auto) 87.2 % Lymphocytes (%) (Auto) 8.5 % Monocytes (%) (Auto) 3.1 % Eosinophils (%) (Auto) 0.0 % Basophils (%) (Auto) 0.1 % Neutrophils # (Auto) 8.51 1.4-6.5 K/uL Lymphocytes # (Auto) 0.83 1.2-3.4 K/uL Monocytes # (Auto) 0.30 0.11-0.59 K/uL Eosinophils # (Auto) 0.00 0-0.5 K/uL Basophils # (Auto) 0.01 0-0.2 K/uL RDW Standard Deviation 45.5 36.4-46.3 fL RDW Coefficient of Variation 12.9 11.5-14.5 % Immature Granulocyte % (Auto) 1.1 % Immature Granulocyte # (Auto) 0.11 0.00-0.02 K/uL Erythrocyte Sedimentation Rate 23 0-21 mm/hr Sodium Level 137 136-145 mmol/L Potassium Level 3.8 3.5-5.1 mmol/L Chloride Level 102 98-107 mmol/L Carbon Dioxide Level 25 21-32 mmol/L Anion Gap 10.0 3-11 mmol/L Blood Urea Nitrogen 18 7-18 mg/dl Creatinine 0.95 0.60-1.20 mg/dl Est Creatinine Clear Calc Drug Dose 63.4 ml/min Estimated GFR () 79.3 Estimated GFR (Non- 68.4 BUN/Creatinine Ratio 18.9 10-20 Random Glucose 189 70-99 mg/dl Calcium Level 8.9 8.5-10.1 mg/dl C-Reactive Protein < 0.29 0-0.29 mg/dl Urine Color YELLOW Urine Appearance CLEAR CLEAR Urine pH 6.5 4.5-7.5 Urine Specific [place] 1.009 1.000-1.030 Urine Protein NEG NEG Urine Glucose (UA) TRACE NEG Urine Ketones NEG NEG Urine Occult Blood NEG NEG Urine Nitrite NEG NEG Urine Bilirubin NEG NEG Urine Urobilinogen NEG NEG Urine Leukocyte Esterase NEG NEG Bedside Lactic Acid Venous 2.43 0.90-1.70 mmol/L Lactic Acid Level 2.0 0.4-2.0 mmol/L Diagnostic Radiology ABD/PELVIS IV AND ORAL CONT IMPRESSION: 1. Wall thickening of the distal and terminal ileum is similar in configuration and extent as compared to the prior study. 2. Findings consistent with distal small bowel obstructive change proximal to this area of small bowel wall edema. 3. This suggests an inflammatory bowel process such as Crohn's disease. 4. Increased fecal load throughout the colon consistent with fecal stasis. 5. No evidence for abscess or collection. The above report was generated using voice recognition software. It may contain grammatical, syntax or spelling errors. Electronically signed by: Jose L Rutledge M.D. 01/01/2018 7:16 PM Dictated Date/Time: 01/01/2018 7:11 PM . Impression Assessment and Plan SMALL BOWEL OBSTRUCTION Recurrent small bowel obstruction, possibly secondary to underlying inflammatory bowel disease or adhesions. Initial management will consist of bowel rest, IV fluids, analgesics. NG tube inserted in the ED. General Surgery consulted. CROHN'S DISEASE Recently managed with infliximab and budesonide. Discharged from [facility] on prednisone taper. IV methylprednisolone 20 mg IV q 12 hours. Consult GI for further recommendations. HYPERLACTEMIA Serum lactate drawn earlier today was 3.2; repeated in ED was 2.0. Patient does not appear to be septic. IV fluids. Follow. HYPERGLYCEMIA Random glucose 189. No history of diabetes mellitus. Hyperglycemia probably secondary to acute illness and steroid therapy. Check hemoglobin A1c. Follow. DEPRESSION / BIPOLAR DISORDER Resume usual medications as soon as GI symptoms permit. VTE PROPHYLAXIS Moderate risk for VTE. Will not utilize chemoprophylaxis initially in case surgical intervention is necessary. SCD's. Ambulate. DISPOSITION Expected discharge to home. Family Medicine follow-up with Dr. Parker. GI follow-up with CHIKI Pearce and Dr. Alfonso. . VTE Prophylaxis VTE Risk Assessment Done? Y/N: Yes Risk Level: Moderate Given or contraindicated: SCD's
[2018-01-01] MEDS ORDERED: MoRPHine SULFATE 4 MG/ML 1 ML CARP\\VIAL IV STA (20:56)
--- NOTE | 2018-01-01 20:58 | Surgery Consultation ---
Consultation Date of Consultation: Jan 01, 2018. Attending Physician: Reason for Consultation: Small bowel obstruction, Hx of crohn's disease History of Present Illness Patient is a 52F who presents to the ED today on request from GI. She follows with Dr. Alfonso and saw his MEDICAL ASSIST[facility] [employer] [employer]IC[employer] Varsha Bautista today. She had some blood work and imaging done and was asked to come to the ED due to an elevated lactic acid level at 2.43. Patient does have a history of crohn's disease for which she receives remicade treatments approximately every 2 months. States she was supposed to have one today but it was cancelled by her GI providers. States her last treatment was sometime at the beginning of October. She was recently hospitalized for a bowel obstruction at [facility] from Dec 12 to December 24 for which she was treated conservatively. She was discharged with a prednisone taper after this hospitalization. Reports that she does not have any abdominal pain but she has felt bloated all day. Denies nausea/vomiting. Denies fever/chills/recent illness. States she has only had 1 BM since her hospitalization at [facility] and thinks it was about 5-6 days ago. Does not report anything irregular with this bowel movement and denies blood in her stool. She is urinating without difficulty. PSHx significant for [place]-SBO. Past Medical/Surgical History Medical Problems: (1) Exacerbation of Crohn's disease Status: Acute Social History Smoking Status: Current Every Day Smoker Drug Use: none Marital Status: Occupation Status: disabled Allergies Coded Allergies: Naproxen (Verified Allergy, Severe, HIVES, SWELLING, 01/01/18) Home Medications Scheduled Amitriptyline HCl (Amitriptyline HCl), 10 MG PO HS Dicyclomine Hcl (Bentyl), 10 MG PO TID Divalproex Sodium (Depakote Er), 250 MG PO TID Estradiol (Estrace), 1 MG PO UD Ferrous Sulfate (Iron), 1 TAB PO DAILY Folic Acid (Folvite), 1 MG PO DAILY Lorazepam (Ativan), 1 MG PO HS Omeprazole (Prilosec), 20 MG PO QAM Prednisone (Prednisone), 40 MG PO UD Sertraline (Zoloft), 100 MG PO BID Trazodone Hcl (Trazodone), 100-150 MG PO BID Venlafaxine Hcl (Venlafaxine Hcl Er), 150 MG PO BID Scheduled PRN Albuterol Hfa (Ventolin Hfa), 2-4 PUFFS INH Q6H PRN for Shortness of Breath Loperamide Hcl (Imodium), 2 MG PO QID PRN for Diarrhea Loratadine (Claritin), 10 MG PO DAILY PRN for Allergy Symptoms Tramadol HCl (Tramadol HCl), 25 MG PO Q8H PRN for severe pain Current Inpatient Medications Current Inpatient Medications Medications (Trade) Dose Ordered Sig/Ida Route Start Time Stop Time Status Last Admin Dose Admin Ioversol (Optiray 320) 125 ml UD PRN IV 01/01/18 16:30 01/05/18 16:29 Review of Systems Constitutional: No fever, No chills Respiratory: No shortness of breath Cardiovascular: No chest pain Abdomen: + constipation (last BM 5-6 days ago per patient), No pain, No nausea , No vomiting, No diarrhea Genitourinary - Female: No dysuria Physical Exam Date Time Temp Pulse Resp B/P (MAP) Pulse Ox O2 Delivery O2 Flow Rate FiO2 01/01/18 20:15 135/108 01/01/18 19:17 83 20 124/81 95 Room Air 01/01/18 18:57 37.2 80 22 126/88 97 Room Air 01/01/18 17:20 88 22 124/84 97 Room Air 01/01/18 16:14 89 20 108/66 94 Room Air 01/01/18 14:42 37.2 103 18 116/76 97 patient laying in bed. NGT in place in right nare draining clear/orange on LIWS General Appearance: WD/WN, no apparent distress Head: normocephalic, atraumatic ENT: hearing grossly normal Neck: trachea midline Respiratory/Chest: no respiratory distress, no accessory muscle use Abdomen/GI: soft, no organomegaly, no pulsatile mass, + tenderness (RLQ and LLQ TTP) Neurologic/Psych: alert, normal mood/affect, oriented x 3 Skin: normal color, warm/dry Laboratory Results Last 24 Hours Test 01/01/18 16:11 01/01/18 16:17 01/01/18 18:40 01/01/18 18:42 White Blood Count 9.76 K/uL Red Blood Count 3.89 M/uL Hemoglobin 12.9 g/dL Hematocrit 37.9 % Mean Corpuscular Volume 97.4 fL Mean Corpuscular Hemoglobin 33.2 pg Mean Corpuscular Hemoglobin Concent 34.0 g/dl Platelet Count 242 K/uL Mean Platelet Volume 11.3 fL Neutrophils (%) (Auto) 87.2 % Lymphocytes (%) (Auto) 8.5 % Monocytes (%) (Auto) 3.1 % Eosinophils (%) (Auto) 0.0 % Basophils (%) (Auto) 0.1 % Neutrophils # (Auto) 8.51 K/uL Lymphocytes # (Auto) 0.83 K/uL Monocytes # (Auto) 0.30 K/uL Eosinophils # (Auto) 0.00 K/uL Basophils # (Auto) 0.01 K/uL RDW Standard Deviation 45.5 fL RDW Coefficient of Variation 12.9 % Immature Granulocyte % (Auto) 1.1 % Immature Granulocyte # (Auto) 0.11 K/uL Erythrocyte Sedimentation Rate 23 mm/hr Sodium Level 137 mmol/L Potassium Level 3.8 mmol/L Chloride Level 102 mmol/L Carbon Dioxide Level 25 mmol/L Anion Gap 10.0 mmol/L Blood Urea Nitrogen 18 mg/dl Creatinine 0.95 mg/dl Est Creatinine Clear Calc Drug Dose 63.4 ml/min Estimated GFR () 79.3 Estimated GFR (Non- 68.4 BUN/Creatinine Ratio 18.9 Random Glucose 189 mg/dl Calcium Level 8.9 mg/dl C-Reactive Protein < 0.29 mg/dl Urine Color YELLOW Urine Appearance CLEAR Urine pH 6.5 Urine Specific [place] 1.009 Urine Protein NEG Urine Glucose (UA) TRACE Urine Ketones NEG Urine Occult Blood NEG Urine Nitrite NEG Urine Bilirubin NEG Urine Urobilinogen NEG Urine Leukocyte Esterase NEG Bedside Lactic Acid Venous 2.43 mmol/L Lactic Acid Level 2.0 mmol/L Assessment & Plan Small bowel obstruction, Fecal stasis, Hx of Crohn's Pain controlled, No N/V, NGT on LIWS. No acute surgical intervention indicated at this time. Admit per medicine service, NPO, Keep NGT, IV Fluids, pain medication PRN, Zofran PRN. Consult GI - follows with Dr. Alfonso - Appreciate recs. Findings discussed with Dr. Calderón. Will continue to follow. Please contact with questions or concerns.
[2018-01-01] MEDS ORDERED: ONDANSETRON INJ 2 MG/ML 2 ML VIAL IV PRN (21:00)
[2018-01-01 21:35] VITALS: BP 116/74; PULSE 84; TEMP 37.1; O2SAT 94; BMI 26.6
[2018-01-01] MEDS ORDERED: HYDROmorphone INJ 0.5 MG/0.5 ML SYR IV PRN (21:45)
[2018-01-01] MEDS ORDERED: METHYLPREDNISOLONE IV 20 MG in SYRINGE 0 ML IV ONE (22:00)
[2018-01-01 23:07] VITALS: BP 120/78; PULSE 72; TEMP 37.2; O2SAT 95
[2018-01-01] MEDS: D5W AND 1/2NSS + 20MEQ KCL 1,000 ML IV SCH (23:20)
[2018-01-01] MEDS ORDERED: LORAZEPAM 1 MG TAB SL ONE (23:34)
[2018-01-01] MEDS ORDERED: ALBUTEROL HFA 8 GM INHALER INH PRN (23:45)
[2018-01-02 06:05] LABS: HEMATOCRIT 38.1 % (37-47); HEMOGLOBIN 12.7 g/dL (12.0-16.0); MEAN CELL VOLUME 97.2 fL (80-100); MEAN CORPUSCULAR HEMOGLOBIN 32.4 pg (25-34); MEAN CORPUSCULAR HGB CONC 33.3 g/dl (32-36); MEAN PLATELET VOLUME 11.2 fL (7.4-10.4); PLATELET COUNT 240 K/uL (130-400); RED CELL DISTRIBUTION WIDTH CV 13.2 % (11.5-14.5); RED CELL DISTRIBUTION WIDTH SD 46.2 fL (36.4-46.3); WHITE BLOOD COUNT 11.81 K/uL (4.8-10.8)
[2018-01-02] MEDS ORDERED: SODIUM CHLORIDE 0.9% 1000ML 1,000 ML IV STA (06:33)
[2018-01-02 06:36] LABS: CALCIUM 9.2 mg/dl (8.5-10.1); CREATININE 0.67 mg/dl (0.60-1.20); POTASSIUM 4.4 mmol/L (3.5-5.1)
[2018-01-02 08:01] VITALS: BP 115/76; PULSE 63; TEMP 37; O2SAT 97
--- NOTE | 2018-01-02 08:28 | Surgery Progress Note ---
Surgery Progress Note Date of Service Jan 02, 2018. Subjective 52-year-old female with history of Crohn's disease admitted overnight with partial small bowel obstruction. She has been taking Remicade and was seen by Jigna Bautista with routine labs, and her lactate was elevated and she was instructed to go to the emergency department. She was recently treated [place] for a small bowel obstruction which resolved. She has crampy abdominal pain but is not overly distended. NG tube in place. Objective Vital Signs: Date Time Temp Pulse Resp B/P (MAP) Pulse Ox O2 Delivery O2 Flow Rate FiO2 01/02/18 08:01 37.0 63 16 115/76 (89) 97 Room Air 01/02/18 07:40 Room Air 01/01/18 23:50 Room Air 01/01/18 23:07 37.2 72 15 120/78 (92) 95 Room Air 01/01/18 21:35 37.1 84 16 116/74 94 Room Air 01/01/18 21:15 37.2 83 20 135/108 95 01/01/18 20:15 135/108 01/01/18 19:17 83 20 124/81 95 Room Air 01/01/18 18:57 37.2 80 22 126/88 97 Room Air 01/01/18 17:20 88 22 124/84 97 Room Air 01/01/18 16:14 89 20 108/66 94 Room Air 01/01/18 14:42 37.2 103 18 116/76 97 Physical Exam: nasogastric drainage General Appearance: WD/WN, no apparent distress Abdomen: soft, no organomegaly, no pulsatile mass, + distended (Moderate distention), + tenderness (Mild tenderness to palpation, no peritonitis), + pertinent finding (Tympanitic to percussion) Laboratory Results: Results Past 24 Hours Test 01/01/18 16:11 01/01/18 16:17 01/01/18 18:40 01/01/18 18:42 Range/Units White Blood Count 9.76 4.8-10.8 K/uL Red Blood Count 3.89 4.2-5.4 M/uL Hemoglobin 12.9 12.0-16.0 g/dL Hematocrit 37.9 37-47 % Mean Corpuscular Volume 97.4 80-100 fL Mean Corpuscular Hemoglobin 33.2 25-34 pg Mean Corpuscular Hemoglobin Concent 34.0 32-36 g/dl Platelet Count 242 130-400 K/uL Mean Platelet Volume 11.3 7.4-10.4 fL Neutrophils (%) (Auto) 87.2 % Lymphocytes (%) (Auto) 8.5 % Monocytes (%) (Auto) 3.1 % Eosinophils (%) (Auto) 0.0 % Basophils (%) (Auto) 0.1 % Neutrophils # (Auto) 8.51 1.4-6.5 K/uL Lymphocytes # (Auto) 0.83 1.2-3.4 K/uL Monocytes # (Auto) 0.30 0.11-0.59 K/uL Eosinophils # (Auto) 0.00 0-0.5 K/uL Basophils # (Auto) 0.01 0-0.2 K/uL RDW Standard Deviation 45.5 36.4-46.3 fL RDW Coefficient of Variation 12.9 11.5-14.5 % Immature Granulocyte % (Auto) 1.1 % Immature Granulocyte # (Auto) 0.11 0.00-0.02 K/uL Erythrocyte Sedimentation Rate 23 0-21 mm/hr Sodium Level 137 136-145 mmol/L Potassium Level 3.8 3.5-5.1 mmol/L Chloride Level 102 98-107 mmol/L Carbon Dioxide Level 25 21-32 mmol/L Anion Gap 10.0 3-11 mmol/L Blood Urea Nitrogen 18 7-18 mg/dl Creatinine 0.95 0.60-1.20 mg/dl Est Creatinine Clear Calc Drug Dose 63.4 ml/min Estimated GFR () 79.3 Estimated GFR (Non- 68.4 BUN/Creatinine Ratio 18.9 10-20 Random Glucose 189 70-99 mg/dl Calcium Level 8.9 8.5-10.1 mg/dl C-Reactive Protein < 0.29 0-0.29 mg/dl Urine Color YELLOW Urine Appearance CLEAR CLEAR Urine pH 6.5 4.5-7.5 Urine Specific [place] 1.009 1.000-1.030 Urine Protein NEG NEG Urine Glucose (UA) TRACE NEG Urine Ketones NEG NEG Urine Occult Blood NEG NEG Urine Nitrite NEG NEG Urine Bilirubin NEG NEG Urine Urobilinogen NEG NEG Urine Leukocyte Esterase NEG NEG Bedside Lactic Acid Venous 2.43 0.90-1.70 mmol/L Lactic Acid Level 2.0 0.4-2.0 mmol/L Test 01/02/18 05:50 Range/Units White Blood Count 11.81 4.8-10.8 K/uL Red Blood Count 3.92 4.2-5.4 M/uL Hemoglobin 12.7 12.0-16.0 g/dL Hematocrit 38.1 37-47 % Mean Corpuscular Volume 97.2 80-100 fL Mean Corpuscular Hemoglobin 32.4 25-34 pg Mean Corpuscular Hemoglobin Concent 33.3 32-36 g/dl RDW Standard Deviation 46.2 36.4-46.3 fL RDW Coefficient of Variation 13.2 11.5-14.5 % Platelet Count 240 130-400 K/uL Mean Platelet Volume 11.2 7.4-10.4 fL Sodium Level 136 136-145 mmol/L Potassium Level 4.4 3.5-5.1 mmol/L Chloride Level 100 98-107 mmol/L Carbon Dioxide Level 29 21-32 mmol/L Anion Gap 7.0 3-11 mmol/L Blood Urea Nitrogen 12 7-18 mg/dl Creatinine 0.67 0.60-1.20 mg/dl Est Creatinine Clear Calc Drug Dose 89.9 ml/min Estimated GFR () 116.3 Estimated GFR (Non- 100.4 BUN/Creatinine Ratio 17.6 10-20 Random Glucose 138 70-99 mg/dl Lactic Acid Level 2.1 0.4-2.0 mmol/L Calcium Level 9.2 8.5-10.1 mg/dl Assessment & Plan 52-year-old female with Crohn's disease and partial small bowel obstruction. CT scan showed contrast into her cecum. This is likely more related to her chronic Crohn's disease, recommend GI consultation. Continue NG tube, IV fluids, nonoperative management Surgery will continue to follow, call with questions or concerns Recommend GI consultation
[2018-01-02] MEDS: METHYLPREDNISOLONE IV 20 MG in SYRINGE 0 ML IV SCH ×2 (08:55→20:54)
[2018-01-02 09:14] VITALS: Ht 160 cm; Wt 68.0 kg
[2018-01-02] MEDS: D5W AND 1/2NSS + 20MEQ KCL 1,000 ML IV SCH ×2 (09:58→18:32)
[2018-01-02] MEDS: ACETAMINOPHEN IV 100 ML IV PRN ×2 (11:53→21:06)
[2018-01-02] MEDS ORDERED: INFLIXIMAB 100 MG/10 ML VIAL IV SCH (13:15)
--- NOTE | 2018-01-02 13:52 | GASTROINTESTINAL CONSULTATION ---
DATE OF CONSULTATION: 01/02/2018 AGE: 52 SEX: Female. RACE: . ATTENDING PHYSICIAN: Dr. Navarro. CONSULTING PHYSICIAN: Dr. Alfonso. REASON FOR CONSULTATION: Crohn's disease, partial small-bowel obstruction. HISTORY OF PRESENT ILLNESS: Izzy Cruz is a 52-year-old female with a history of Crohn's ileitis with stenosis who was recently admitted to [facility] on 12/12/2017 with findings of a small-bowel obstruction. She at that time was recommended to undergo a bowel resection, though she refused surgical intervention at that time and requested discussing it with her primary team. Supportive care was given including NG decompression and she was discharged from [facility] on a prednisone taper. She was seen by CHIKI Pearce, on 01/01/2018 at the office and due to persistent abdominal pain, lack of bowel movements and concern for a returning obstruction versus ileus, she was sent to the Department of Emergency Medicine. Upon arrival, she was noted to have an elevation in her lactate level to 3.2. She underwent a CT scan of the abdomen and pelvis with findings showing wall thickening in the distal and terminal ileum, similar in configuration and extent as compared to a prior study and findings were consistent with distal small bowel obstructive change proximal to the area of small bowel wall edema. She was subsequently admitted, was seen by Dr. Calderón of surgery, who recommended NG decompression and felt that she did not have any surgical needs at that time. At the time that I saw the patient, NG tube was in place. She states that she was feeling better today and her belly was softer today. She still does not have any appetite and does continue to complain of some right lower quadrant abdominal pain though she states that it is improved with narcotic analgesics. She describes her pain now as a 3-4/10 in intensity when not receiving narcotics though it drops to a 1 with narcotic analgesia. She describes the pain as a chronic ache. She denies any further complaints. PAST MEDICAL HISTORY: Includes small-bowel obstruction, Crohn's ileitis with a stenotic disease, right lower quadrant abdominal pain. PAST SURGICAL HISTORY: Includes hysterectomy, shoulder surgery. ALLERGIES: NAPROXEN. MEDICATIONS: At present include methylprednisolone 20 mg IV b.i.d., albuterol inhaler every 6 hours p.r.n. shortness of breath, Dilaudid 0.5 mg IV q. 8 p.r.n. severe pain, Ativan 1 mg sublingual at bedtime, Zofran 4 mg IV q. 6 p.r.n. nausea. SOCIAL HISTORY: She is a former smoker. She denies any tobacco, alcohol or illicit drug use. FAMILY HISTORY: She does have a family history of inflammatory bowel disease. REVIEW OF SYSTEMS: Negative x12 system review other than pertinent positives listed in the HPI. PHYSICAL EXAMINATION: VITAL SIGNS: Include a temp of 37, pulse 63, respirations 16, blood pressure 115/76, pulse ox 97% on room air. GENERAL: She is awake, cooperative, in mild distress. HEAD: Normocephalic, atraumatic. EYES: Pupils equally round. Extraocular muscles are intact. ENT: There is an NG tube in place. Oropharynx is clear. NECK: Soft, supple. No JVD or lymphadenopathy. CHEST: Clear to auscultation bilaterally. CARDIOVASCULAR SYSTEM: Regular rate and rhythm. ABDOMEN: Soft, tender in the right lower quadrant. Nondistended. Positive bowel sounds. EXTREMITIES: No clubbing, cyanosis, or edema. LABORATORY STUDIES: From today include a sodium of 136, potassium 4.4, chloride 100, bicarbonate 29, BUN 12, creatinine 0.67, blood glucose of 138. Lactic acid level of 2.0. Hemoglobin 12.7, hematocrit 38.1, platelet count 240 and a white blood cell count of 11.81. IMPRESSION: A 52-year-old female with Crohn's ileitis and a partial small-bowel obstruction on CT imaging. PLAN: At the present time, I do agree with Dr. Calderón that the patient is not a surgical candidate nor does she need any surgical intervention at this time. I would recommend continuing her NG tube with decompression and supportive care. She will continue to receive Solu-Medrol 20 mg IV b.i.d. I will also recommend that she receive Remicade 10 mg/kg IV every 8 weeks. She is currently on Remicade 5 mg/kg every 8 weeks and she is due for this now and therefore I will have this administered while she is hospitalized. Once again, thanks for allowing me to participate in the care of this patient. If you have any further questions, please do not hesitate in contacting me.
[2018-01-02 14:53] VITALS: BP 117/72; PULSE 58; TEMP 36.4; O2SAT 96
[2018-01-02] MEDS ORDERED: NURSING VERBAL MED ORDER ONE (15:15)
[2018-01-02] MEDS ORDERED: INFLIXIMAB IV ONE (16:00)
[2018-01-02] MEDS ORDERED: SODIUM CHLORIDE 0.9% IV ONE (16:00)
[2018-01-02] MEDS ORDERED: [UNRECOGNIZED DRUG - OTHER] IV ONE (16:00)
[2018-01-02 17:03] VITALS: BP 110/76; PULSE 61; TEMP 37.3; O2SAT 96
[2018-01-02] MEDS ORDERED: GLYCERIN ADULT SUPP 12 EA SUPP PR ONE (17:33)
--- NOTE | 2018-01-02 17:44 | Progress Note ---
Medicine Progress Note Date & Time of Visit: Jan 02, 2018 at 16:32. Subjective 52 yo F with Chron's Disease and recent hospitalization this month for SBO at another hospital presents with worsened abdominal pain and new SBO. -denies abdominal pain -in good spirits and told me she wants to get better to get home -two BMs in past 20 days -not currently having BM or passing gas. Objective Last 8 Hrs Date Time Temp Pulse Resp B/P (MAP) Pulse Ox O2 Delivery O2 Flow Rate FiO2 01/02/18 14:53 36.4 58 117/72 (87) 96 Room Air Physical Exam: GEN: WNWD, in no acute distress, alert and appropriate HEENT: NC/AT, normal sclerae, MMM, NGT in place. CARDIO: reg rate, S1/2 heard without m/g/r LUNGS: CTA bilaterally, no crackles, rales or wheezes, good diaphragmatic excursion ABD: soft, non-tender, non-distended, no rebound or guarding, hypoactive BS EXTREMITY: RP and DP palpable 2+ bilat, no LE swelling or edema, extremities are warm and well-perfused NEURO: CN 2-12 grossly intact, no gross focal deficits. MUSC: 5/5 strength throughout, no gross focal deficits SKIN: warm and dry Laboratory Results: 01/02/18 05:50 01/02/18 05:50 Test 01/01/18 16:11 01/01/18 16:17 01/01/18 18:40 01/02/18 05:50 Immature Granulocyte % (Auto) 1.1 % White Blood Count 9.76 K/uL (4.8-10.8) Red Blood Count 3.89 M/uL (4.2-5.4) 3.92 M/uL (4.2-5.4) Hemoglobin 12.9 g/dL (12.0-16.0) Hematocrit 37.9 % (37-47) Mean Corpuscular Volume 97.4 fL (80-100) 97.2 fL (80-100) Mean Corpuscular Hemoglobin 33.2 pg (25-34) 32.4 pg (25-34) Mean Corpuscular Hemoglobin Concent 34.0 g/dl (32-36) 33.3 g/dl (32-36) Platelet Count 242 K/uL (130-400) Mean Platelet Volume 11.3 fL (7.4-10.4) 11.2 fL (7.4-10.4) Neutrophils (%) (Auto) 87.2 % Lymphocytes (%) (Auto) 8.5 % Monocytes (%) (Auto) 3.1 % Eosinophils (%) (Auto) 0.0 % Basophils (%) (Auto) 0.1 % Neutrophils # (Auto) 8.51 K/uL (1.4-6.5) Lymphocytes # (Auto) 0.83 K/uL (1.2-3.4) Monocytes # (Auto) 0.30 K/uL (0.11-0.59) Eosinophils # (Auto) 0.00 K/uL (0-0.5) Basophils # (Auto) 0.01 K/uL (0-0.2) Immature Granulocyte # (Auto) 0.11 K/uL (0.00-0.02) Erythrocyte Sedimentation Rate 23 mm/hr (0-21) C-Reactive Protein < 0.29 mg/dl (0-0.29) Urine Color YELLOW Urine Appearance CLEAR (CLEAR) Urine pH 6.5 (4.5-7.5) Urine Specific [place] 1.009 (1.000-1.030) Urine Protein NEG (NEG) Urine Glucose (UA) TRACE (NEG) Urine Ketones NEG (NEG) Urine Occult Blood NEG (NEG) Urine Nitrite NEG (NEG) Urine Bilirubin NEG (NEG) Urine Urobilinogen NEG (NEG) Urine Leukocyte Esterase NEG (NEG) Bedside Lactic Acid Venous 2.43 mmol/L (0.90-1.70) RDW Standard Deviation 46.2 fL (36.4-46.3) RDW Coefficient of Variation 13.2 % (11.5-14.5) Anion Gap 7.0 mmol/L (3-11) Est Creatinine Clear Calc Drug Dose 89.9 ml/min Estimated GFR () 116.3 Estimated GFR (Non- 100.4 BUN/Creatinine Ratio 17.6 (10-20) Calcium Level 9.2 mg/dl (8.5-10.1) Test 01/02/18 12:03 01/02/18 17:40 Lactic Acid Level 2.0 mmol/L (0.4-2.0) Last 24 Hours Test 01/01/18 18:40 01/01/18 18:42 01/02/18 05:50 01/02/18 12:03 Bedside Lactic Acid Venous 2.43 mmol/L Lactic Acid Level 2.0 mmol/L 2.1 mmol/L 2.0 mmol/L White Blood Count 11.81 K/uL Red Blood Count 3.92 M/uL Hemoglobin 12.7 g/dL Hematocrit 38.1 % Mean Corpuscular Volume 97.2 fL Mean Corpuscular Hemoglobin 32.4 pg Mean Corpuscular Hemoglobin Concent 33.3 g/dl RDW Standard Deviation 46.2 fL RDW Coefficient of Variation 13.2 % Platelet Count 240 K/uL Mean Platelet Volume 11.2 fL Sodium Level 136 mmol/L Potassium Level 4.4 mmol/L Chloride Level 100 mmol/L Carbon Dioxide Level 29 mmol/L Anion Gap 7.0 mmol/L Blood Urea Nitrogen 12 mg/dl Creatinine 0.67 mg/dl Est Creatinine Clear Calc Drug Dose 89.9 ml/min Estimated GFR () 116.3 Estimated GFR (Non- 100.4 BUN/Creatinine Ratio 17.6 Random Glucose 138 mg/dl Calcium Level 9.2 mg/dl Assessment & Plan 52 yo F with Chron's Disease and recent hospitalization this month for SBO at another hospital presents with worsened abdominal pain and new SBO. 1. SBO-recurrent, etiologies include but not limited to IBD flare, severe constipation, or adhesions or a combination. Cont supportive care with NGT to LIS, bowel rest, IVF and analgesics as needed. Glycerin suppository ordered. Apprec Gen Surgery recs against surgery at this time. 2. Chron's ileitis-Remicaide infusion ordered per GI today who recommends cont steroids and current management. 3. Depression/Bipolar disorder-holding PO meds while on bowel rest. Will restart once tolerating PO again. DVT proph-Lovenox. Full Code Dispo-uncertain at this time. Shanice Evangelista DO [facility] Hospitalist Consultants: GI-Dr. Alfonso Gen Surg-Dr. Calderón. Current Inpatient Medications: Current Inpatient Medications Medications (Trade) Dose Ordered Sig/Ida Route Start Time Stop Time Status Last Admin Dose Admin Ioversol (Optiray 320) 125 ml UD PRN IV 01/01/18 16:30 01/05/18 16:29 Ondansetron HCl (Zofran Inj) 4 mg Q6H PRN IV 01/01/18 21:00 01/31/18 20:59 Potassium Chloride/Dextrose/ Sod Cl 1,000 ml @ 125 mls/hr Q8H IV 01/01/18 22:00 01/31/18 21:59 01/02/18 09:58 125 MLS/HR Acetaminophen 100 ml @ 400 mls/hr Q8H PRN IV 01/01/18 21:45 01/31/18 21:44 01/02/18 11:53 400 MLS/HR Hydromorphone HCl (Dilaudid Inj) 0.5 mg Q8H PRN IV 01/01/18 21:45 01/15/18 21:44 Methylprednisolone Sodium Succinate 20 mg/Syringe 0.32 ml @ 1.5 mls/min BID IV 01/02/18 09:00 02/01/18 08:59 01/02/18 08:55 1.5 MLS/MIN Albuterol (Ventolin Hfa Inhaler) 2 puffs Q6H PRN INH 01/01/18 23:45 01/31/18 23:44 Lorazepam (Ativan Tab) 1 mg HS SL 01/02/18 21:00 02/01/18 20:59
[2018-01-02] MEDS ORDERED: GLYCERIN ADULT SUPP 12 EA SUPP PR PRN (17:45)
[2018-01-02 18:52] LABS: INR 0.9 (0.9-1.1)
[2018-01-02 19:57] VITALS: BP 111/73; PULSE 60; TEMP 36.4; O2SAT 99
[2018-01-02] MEDS: LORAZEPAM 1 MG TAB SL SCH (20:54)
[2018-01-03 00:05] VITALS: BP 115/75; PULSE 56; TEMP 36.8; O2SAT 95
[2018-01-03] MEDS: D5W AND 1/2NSS + 20MEQ KCL 1,000 ML IV SCH ×3 (02:39→19:10)
[2018-01-03] MEDS: ACETAMINOPHEN IV 100 ML IV PRN ×2 (05:04→13:33)
[2018-01-03 07:00] VITALS: BP 112/68; PULSE 48; TEMP 37.2; O2SAT 97
[2018-01-03] MEDS: METHYLPREDNISOLONE IV 20 MG in SYRINGE 0 ML IV SCH ×2 (08:34→21:11)
[2018-01-03] MEDS: ENOXAPARIN 40 MG/0.4 ML SYR SQ SCH (08:34)
[2018-01-03 09:11] LABS: HEMATOCRIT 39.5 % (37-47); HEMOGLOBIN 13.4 g/dL (12.0-16.0); MEAN CELL VOLUME 96.6 fL (80-100); MEAN CORPUSCULAR HEMOGLOBIN 32.8 pg (25-34); MEAN CORPUSCULAR HGB CONC 33.9 g/dl (32-36); MEAN PLATELET VOLUME 10.9 fL (7.4-10.4); PLATELET COUNT 251 K/uL (130-400); RED CELL DISTRIBUTION WIDTH CV 13.2 % (11.5-14.5); RED CELL DISTRIBUTION WIDTH SD 46.3 fL (36.4-46.3); WHITE BLOOD COUNT 12.25 K/uL (4.8-10.8)
--- NOTE | 2018-01-03 09:21 | Surgery Progress Note ---
Surgery Progress Note Date of Service Jan 03, 2018. Subjective + bowel movement, + pain controlled, No nausea, No vomiting Patient sitting up in bed- NG tube still in place. Objective Vital Signs: Date Time Temp Pulse Resp B/P (MAP) Pulse Ox O2 Delivery O2 Flow Rate FiO2 01/03/18 07:15 Room Air 01/03/18 07:00 37.2 48 16 112/68 (83) 97 Room Air 01/03/18 00:05 36.8 56 16 115/75 (88) 95 Room Air 01/02/18 23:20 Room Air 01/02/18 19:57 36.4 60 16 111/73 (86) 99 Room Air 01/02/18 17:03 37.3 61 16 110/76 (87) 96 Room Air 01/02/18 15:15 Room Air 01/02/18 14:53 36.4 58 117/72 (87) 96 Room Air General Appearance: WD/WN, no apparent distress Head: normocephalic, atraumatic Abdomen: soft, + distended (slight improvement from yesterday), + tenderness, + pertinent finding (NG tube in place- 1200 cc (01/02), 725 cc today) Laboratory Results: Results Past 24 Hours Test 01/02/18 12:03 01/02/18 18:23 01/03/18 08:51 Range/Units Lactic Acid Level 2.0 0.4-2.0 mmol/L Prothrombin Time 9.8 9.0-12.0 SECONDS Prothromb Time International Ratio 0.9 0.9-1.1 White Blood Count 12.25 4.8-10.8 K/uL Red Blood Count 4.09 4.2-5.4 M/uL Hemoglobin 13.4 12.0-16.0 g/dL Hematocrit 39.5 37-47 % Mean Corpuscular Volume 96.6 80-100 fL Mean Corpuscular Hemoglobin 32.8 25-34 pg Mean Corpuscular Hemoglobin Concent 33.9 32-36 g/dl RDW Standard Deviation 46.3 36.4-46.3 fL RDW Coefficient of Variation 13.2 11.5-14.5 % Platelet Count 251 130-400 K/uL Mean Platelet Volume 10.9 7.4-10.4 fL Assessment & Plan 01/03/2018 52-year-old female with Crohn's disease and partial small bowel obstruction. CT scan showed contrast into her cecum. Patient seen and examined with Dr. Calderón. +BM yesterday, abdominal pain improving. Denies nausea or vomiting. Reviewed GI note from yesterday. Continue non-operative management, NG tube, sips and chips- may consider clamping trial of NG tube today for possible removal if patient continues to improve. Please call with questions or concerns.
[2018-01-03 09:37] LABS: CALCIUM 9.2 mg/dl (8.5-10.1); CREATININE 0.63 mg/dl (0.60-1.20); PHOSPHORUS 4.1 mg/dl (2.5-4.9)
--- NOTE | 2018-01-03 14:25 | GASTROENTEROLOGY PROGRESS NOTE ---
DATE: 01/03/2018 AGE: 52 SEX: Female. RACE: . I had the pleasure of seeing Izzy Cruz at her bedside today. She is feeling better today than previous. She denies any abdominal pain. She states that she has not had any nausea, vomiting, hematemesis, melena or hematochezia. She states that she still has not had any p.o. intake and still does have an NG tube in place, though she feels that it has had less output. PHYSICAL EXAMINATION: VITAL SIGNS: Temperature 37.2, pulse 48, respirations 16, blood pressure 112/68, pulse ox 97% on room air. GENERAL: She is awake, cooperative, chronic ill appearing. CHEST: Clear to auscultation bilaterally. CARDIOVASCULAR SYSTEM: Regular rate and rhythm. ABDOMEN: Soft, nontender, nondistended. Positive bowel sounds. LABORATORY STUDIES: From today include a white blood cell count of 12.25, hemoglobin 13.4, hematocrit 39.5 and platelet count of 251. Sodium 136, potassium 4.0, chloride 100, bicarbonate 27, BUN 10, creatinine 0.63, blood glucose 124. IMPRESSION: A 52-year-old female with a history of Crohn's ileitis and partial small-bowel obstruction on CT imaging. PLAN: At the present time, I would recommend abdominal x-ray with 3 views. I would also recommend continuing supportive care. If her x-rays are improved and show no evidence of obstruction, I would slowly advance her diet as tolerated. She did receive Remicade 10 mg/kg IV yesterday and will receive this every 8 weeks and will be continued on Solu-Medrol 20 mg b.i.d. Once again, thanks for allowing me to participate in the care of this patient. If you have any further questions, please do not hesitate in contacting me.
[2018-01-03 14:51] VITALS: BP 109/69; PULSE 54; TEMP 36.7; O2SAT 94
[2018-01-03 15:15] VITALS: O2SAT 93
--- NOTE | 2018-01-03 15:47 | Progress Note ---
Medicine Progress Note Date & Time of Visit: Jan 03, 2018 at 13:43. Subjective 52 yo F with Chron's Disease and recent hospitalization this month for SBO at another hospital presents with worsened abdominal pain and new SBO in setting of CD flare. Doing well on steroids and after receiving her Remicaide infusion yesterday. 425cc out via NGT today. Diet advanced to small sips and chips. Reports pain in her mouth after having teeth pulled last month. Reports some sore throat from the NGT. Objective Last 8 Hrs Date Time Temp Pulse Resp B/P (MAP) Pulse Ox O2 Delivery O2 Flow Rate FiO2 01/03/18 07:15 Room Air 01/03/18 07:00 37.2 48 16 112/68 (83) 97 Room Air Physical Exam: GEN: WNWD, in no acute distress, alert and appropriate HEENT: NC/AT, normal sclerae, MMM, NGT in place to suction CARDIO: reg rate, S1/2 heard without m/g/r LUNGS: CTA bilaterally, no crackles, rales or wheezes, good diaphragmatic excursion ABD: soft, mild TTP in upper quadrants, non-distended, no rebound or guarding, hypoactive BS EXTREMITY: RP and DP palpable 2+ bilat, no LE swelling or edema, extremities are warm and well-perfused NEURO: CN 2-12 grossly intact, no gross focal deficits. MUSC: 5/5 strength throughout, no gross focal deficits SKIN: warm and dry Laboratory Results: 01/03/18 08:51 01/03/18 08:51 Test 01/01/18 16:11 01/01/18 16:17 01/01/18 18:40 01/02/18 12:03 Immature Granulocyte % (Auto) 1.1 % White Blood Count 9.76 K/uL (4.8-10.8) Red Blood Count 3.89 M/uL (4.2-5.4) Hemoglobin 12.9 g/dL (12.0-16.0) Hematocrit 37.9 % (37-47) Mean Corpuscular Volume 97.4 fL (80-100) Mean Corpuscular Hemoglobin 33.2 pg (25-34) Mean Corpuscular Hemoglobin Concent 34.0 g/dl (32-36) Platelet Count 242 K/uL (130-400) Mean Platelet Volume 11.3 fL (7.4-10.4) Neutrophils (%) (Auto) 87.2 % Lymphocytes (%) (Auto) 8.5 % Monocytes (%) (Auto) 3.1 % Eosinophils (%) (Auto) 0.0 % Basophils (%) (Auto) 0.1 % Neutrophils # (Auto) 8.51 K/uL (1.4-6.5) Lymphocytes # (Auto) 0.83 K/uL (1.2-3.4) Monocytes # (Auto) 0.30 K/uL (0.11-0.59) Eosinophils # (Auto) 0.00 K/uL (0-0.5) Basophils # (Auto) 0.01 K/uL (0-0.2) Immature Granulocyte # (Auto) 0.11 K/uL (0.00-0.02) Erythrocyte Sedimentation Rate 23 mm/hr (0-21) C-Reactive Protein < 0.29 mg/dl (0-0.29) Urine Color YELLOW Urine Appearance CLEAR (CLEAR) Urine pH 6.5 (4.5-7.5) Urine Specific [place] 1.009 (1.000-1.030) Urine Protein NEG (NEG) Urine Glucose (UA) TRACE (NEG) Urine Ketones NEG (NEG) Urine Occult Blood NEG (NEG) Urine Nitrite NEG (NEG) Urine Bilirubin NEG (NEG) Urine Urobilinogen NEG (NEG) Urine Leukocyte Esterase NEG (NEG) Bedside Lactic Acid Venous 2.43 mmol/L (0.90-1.70) Lactic Acid Level 2.0 mmol/L (0.4-2.0) Test 01/02/18 18:23 01/03/18 08:51 Prothrombin Time 9.8 SECONDS (9.0-12.0) Prothromb Time International Ratio 0.9 (0.9-1.1) Red Blood Count 4.09 M/uL (4.2-5.4) Mean Corpuscular Volume 96.6 fL (80-100) Mean Corpuscular Hemoglobin 32.8 pg (25-34) Mean Corpuscular Hemoglobin Concent 33.9 g/dl (32-36) RDW Standard Deviation 46.3 fL (36.4-46.3) RDW Coefficient of Variation 13.2 % (11.5-14.5) Mean Platelet Volume 10.9 fL (7.4-10.4) Anion Gap 9.0 mmol/L (3-11) Est Creatinine Clear Calc Drug Dose 95.6 ml/min Estimated GFR () 118.7 Estimated GFR (Non- 102.4 BUN/Creatinine Ratio 15.2 (10-20) Calcium Level 9.2 mg/dl (8.5-10.1) Phosphorus Level 4.1 mg/dl (2.5-4.9) Magnesium Level 2.1 mg/dl (1.8-2.4) Last 24 Hours Test 01/02/18 18:23 01/03/18 08:51 Prothrombin Time 9.8 SECONDS Prothromb Time International Ratio 0.9 White Blood Count 12.25 K/uL Red Blood Count 4.09 M/uL Hemoglobin 13.4 g/dL Hematocrit 39.5 % Mean Corpuscular Volume 96.6 fL Mean Corpuscular Hemoglobin 32.8 pg Mean Corpuscular Hemoglobin Concent 33.9 g/dl RDW Standard Deviation 46.3 fL RDW Coefficient of Variation 13.2 % Platelet Count 251 K/uL Mean Platelet Volume 10.9 fL Sodium Level 136 mmol/L Potassium Level 4.0 mmol/L Chloride Level 100 mmol/L Carbon Dioxide Level 27 mmol/L Anion Gap 9.0 mmol/L Blood Urea Nitrogen 10 mg/dl Creatinine 0.63 mg/dl Est Creatinine Clear Calc Drug Dose 95.6 ml/min Estimated GFR () 118.7 Estimated GFR (Non- 102.4 BUN/Creatinine Ratio 15.2 Random Glucose 124 mg/dl Calcium Level 9.2 mg/dl Phosphorus Level 4.1 mg/dl Magnesium Level 2.1 mg/dl Assessment & Plan 52 yo F with Chron's Disease and recent hospitalization this month for SBO at another hospital presents with worsened abdominal pain and new SBO in setting of CD flare. Doing well on steroids and after receiving her Remicaide infusion yesterday. 425cc out via NGT today. Diet advanced to small sips and chips. Reports pain in her mouth after having teeth pulled last month. Reports some sore throat from the NGT. 1. SBO-recurrent, etiologies include but not limited to IBD flare, severe constipation, or adhesions or a combination. Cont supportive care with NGT to LIS, bowel rest, IVF and analgesics as needed. Glycerin suppository ordered overnight with good result-BM last night and today. Defer NGT clamping and removal to Gen Surg team. 2. Chron's ileitis-Remicaide infusion ordered per GI on 01/02 who recommends cont steroids and current management. 3. Depression/Bipolar disorder-holding PO meds while on bowel rest. Will restart once tolerating PO again. DVT proph-Lovenox. Full Code Dispo-uncertain at this time. DO [facility] Hospitalist Consultants: GI-Dr. Alfonso Gen Surg-Dr. Calderón. Current Inpatient Medications: Current Inpatient Medications Medications (Trade) Dose Ordered Sig/Ida Route Start Time Stop Time Status Last Admin Dose Admin Ioversol (Optiray 320) 125 ml UD PRN IV 01/01/18 16:30 01/05/18 16:29 Ondansetron HCl (Zofran Inj) 4 mg Q6H PRN IV 01/01/18 21:00 01/31/18 20:59 Potassium Chloride/Dextrose/ Sod Cl 1,000 ml @ 125 mls/hr Q8H IV 01/01/18 22:00 01/31/18 21:59 01/03/18 11:51 125 MLS/HR Hydromorphone HCl (Dilaudid Inj) 0.5 mg Q8H PRN IV 01/01/18 21:45 01/15/18 21:44 Methylprednisolone Sodium Succinate 20 mg/Syringe 0.32 ml @ 1.5 mls/min BID IV 01/02/18 09:00 02/01/18 08:59 01/03/18 08:34 1.5 MLS/MIN Albuterol (Ventolin Hfa Inhaler) 2 puffs Q6H PRN INH 01/01/18 23:45 01/31/18 23:44 Lorazepam (Ativan Tab) 1 mg HS SL 01/02/18 21:00 02/01/18 20:59 01/02/18 20:54 1 MG Glycerin (Glycerin Adult Supp) 1 ea DAILY PRN GA 01/02/18 17:45 02/01/18 17:44 Enoxaparin Sodium (Lovenox Inj) 40 mg QAM SQ 01/03/18 09:00 02/02/18 08:59 Acetaminophen 1000 mg/Syringe 100 ml @ 400 mls/hr Q8H IV 01/03/18 21:00 01/31/18 21:44
[2018-01-03] MEDS ORDERED: CHLORASEPTIC 1.4% SOLN 180 ML BTL MT PRN (16:00)
--- NOTE | 2018-01-03 16:12 | DIAGNOSTIC IMAGING REPORT ---
ABDOMEN 2 VIEWS CLINICAL HISTORY: Small bowel obstruction. FINDINGS: Supine and erect abdominal radiographs are correlated with abdominal CT dated to. An enteric tube projects over the stomach. There is no radiographic evidence of high-grade bowel obstruction. Enteric contrast is seen throughout the colon. A distended and thick-walled loop of small bowel in the midabdomen and measures up to 3 cm in caliber. No evidence of intraperitoneal free air is seen. There are no abnormal abdominal calcifications. The bony structures appear intact. IMPRESSION: 1. An enteric tube projects over the stomach. 2. There is no radiographic evidence of high-grade small bowel obstruction. Enteric contrast fills the colon. 3. A distended and thick-walled loop of small bowel is identified in the mid abdomen. This suggests nonspecific inflammation. Clinical correlation will be required. Electronically signed by: Tyshawn Marley M.D. 01/03/2018 4:11 PM Dictated Date/Time: 01/03/2018 4:08 PM
[2018-01-03] MEDS: ACETAMINOPHEN IV SCH (21:11)
[2018-01-03] MEDS: LORAZEPAM 1 MG TAB SL SCH (21:11)
[2018-01-03 23:33] VITALS: BP 109/60; PULSE 59; TEMP 37.1; O2SAT 94
[2018-01-04] MEDS ORDERED: NURSING VERBAL MED ORDER ONE (01:30)
[2018-01-04] MEDS: D5W AND 1/2NSS + 20MEQ KCL 1,000 ML IV SCH ×3 (03:16→20:30)
[2018-01-04] MEDS: ACETAMINOPHEN IV SCH ×2 (05:07→13:13)
[2018-01-04 07:51] VITALS: BP 130/83; PULSE 47; TEMP 37; O2SAT 97
[2018-01-04] MEDS: ENOXAPARIN 40 MG/0.4 ML SYR SQ SCH (09:00)
[2018-01-04] MEDS: METHYLPREDNISOLONE IV 20 MG in SYRINGE 0 ML IV SCH ×2 (09:03→20:32)
--- NOTE | 2018-01-04 09:32 | Gastroenterology Progress Note ---
Progress Note Date of Service: Jan 04, 2018 Subjective Pt evaluation today including: conversation w/ patient, physical exam, chart review, lab review, review of studies Patient is a 52 yo female who is hospitalized with a small bowel obstruction due to Crohn's Disease. She reports she is feeling well this morning. Her NG tube is in place. She underwent an abdominal xray on 01/03 that did not indicate any signs of obstruction. She denies any new issues at present. She had her Remicade infusion on 01/02/18. She continues on Solumedrol 20 mg BID. Review of Systems Eyes: No problem reported ENT: + problem reported (self conscious about recent teeth removal) Respiratory: No shortness of breath Cardiac: No chest pain Abdomen: No pain, No nausea, No vomiting, No diarrhea, No constipation, No GI bleeding Musculoskeletal: No joint pain Neuro: No problem reported Psych: No problem reported Endo: No problem reported Skin: No problem reported Medications Current Inpatient Medications Medications (Trade) Dose Ordered Sig/Ida Route Start Time Stop Time Status Last Admin Dose Admin Ioversol (Optiray 320) 125 ml UD PRN IV 01/01/18 16:30 01/05/18 16:29 Ondansetron HCl (Zofran Inj) 4 mg Q6H PRN IV 01/01/18 21:00 01/31/18 20:59 Potassium Chloride/Dextrose/ Sod Cl 1,000 ml @ 125 mls/hr Q8H IV 01/01/18 22:00 01/31/18 21:59 01/04/18 03:16 125 MLS/HR Hydromorphone HCl (Dilaudid Inj) 0.5 mg Q8H PRN IV 01/01/18 21:45 01/15/18 21:44 Methylprednisolone Sodium Succinate 20 mg/Syringe 0.32 ml @ 1.5 mls/min BID IV 01/02/18 09:00 02/01/18 08:59 01/04/18 09:03 1.5 MLS/MIN Albuterol (Ventolin Hfa Inhaler) 2 puffs Q6H PRN INH 01/01/18 23:45 01/31/18 23:44 Lorazepam (Ativan Tab) 1 mg HS SL 01/02/18 21:00 02/01/18 20:59 01/03/18 21:11 1 MG Glycerin (Glycerin Adult Supp) 1 ea DAILY PRN NM 01/02/18 17:45 02/01/18 17:44 Enoxaparin Sodium (Lovenox Inj) 40 mg QAM SQ 01/03/18 09:00 02/02/18 08:59 Acetaminophen 1000 mg/Syringe 100 ml @ 400 mls/hr Q8H IV 01/03/18 21:00 01/31/18 21:44 01/04/18 05:07 400 MLS/HR Phenol (Chloraseptic 1.4% [place]) 2 sprays Q2H PRN MT 01/03/18 16:00 02/02/18 15:59 Objective Vital Signs Date Time Temp Pulse Resp B/P (MAP) Pulse Ox O2 Delivery O2 Flow Rate FiO2 01/04/18 07:51 37.0 47 16 130/83 (99) 97 Room Air 01/04/18 01:00 Room Air 01/03/18 23:33 37.1 59 16 109/60 (76) 94 Room Air 01/03/18 15:15 93 Room Air 01/03/18 14:51 36.7 54 16 109/69 (82) 94 Room Air Physical Exam General Appearance: WD/WN, no apparent distress Eyes: normal inspection, PERRL Respiratory/Chest: lungs clear, normal breath sounds Cardiovascular: regular rate, rhythm Abdomen: normal bowel sounds, non tender, soft Extremities: non-tender Neurologic/Psych: alert, oriented x 3 Skin: normal color Assessment and Plan Patient is a 52 yo female hospitalized with imaging findings concerning for a small bowel obstruction due to complicated Crohn's Disease. 1) Patient received Remicade on 01/02 and will continue on her every 8 week schedule. 2) Continue IV Solumedrol 20 mg BID. At discharge, she will require a Prednisone taper beginning at 40 mg daily x 1 week, then decreasing by 5 mg per week for 7 subsequent weeks. 3) NG recommendations per surgery. 4) Supportive care per primary team. Thank you for allowing us to participate in the care of this patient. If you should have any further questions or concerns, do not hesitate to contact us. Agree with LAURYN Sow as above Abd: Soft, NT, ND, +BS Will await input from Surgery, if NG tube pulled recommend advancing diet slowly Continue current therapy
--- NOTE | 2018-01-04 14:32 | Surgery Progress Note ---
Surgery Progress Note Date of Service Jan 04, 2018. Subjective + feeling well, + ambulating, + pain controlled, No nausea, No vomiting Objective Vital Signs: Date Time Temp Pulse Resp B/P (MAP) Pulse Ox O2 Delivery O2 Flow Rate FiO2 01/04/18 08:10 Room Air 01/04/18 07:51 37.0 47 16 130/83 (99) 97 Room Air 01/04/18 01:00 Room Air 01/03/18 23:33 37.1 59 16 109/60 (76) 94 Room Air 01/03/18 15:15 93 Room Air 01/03/18 14:51 36.7 54 16 109/69 (82) 94 Room Air Physical Exam: nasogastric drainage General Appearance: WD/WN, no apparent distress Abdomen: non tender, soft Assessment & Plan 01/04/2018 Patient doing well today. Abdominal pain resolved. No surgical intervention indicated. Reviewed GI note- also recommend removal of NG tube. General Surgery will sign off at this time. Please call with any additional questions or concerns. 01/03/2018 52-year-old female with Crohn's disease and partial small bowel obstruction. CT scan showed contrast into her cecum. Patient seen and examined with Dr. Calderón. +BM yesterday, abdominal pain improving. Denies nausea or vomiting. Reviewed GI note from yesterday. Continue non-operative management, NG tube, sips and chips- may consider clamping trial of NG tube today for possible removal if patient continues to improve. Please call with questions or concerns.
[2018-01-04 15:35] VITALS: BP 128/82; PULSE 50; TEMP 37.2; O2SAT 97
[2018-01-04] MEDS: LORAZEPAM 1 MG TAB SL SCH (20:30)
--- NOTE | 2018-01-04 21:21 | Progress Note ---
Medicine Progress Note Date & Time of Visit: Jan 04, 2018 at 15:00. Subjective 52 yo F with Chron's Disease and recent hospitalization this month for SBO at another hospital presents with worsened abdominal pain and new SBO in setting of CD flare. Doing well on steroids and after receiving her Remicaide infusion. Clamped NGT with no worsening of pain or bloating-plan for removal of NGT with advancement of diet as tolerated. Pain in mouth from pulled teeth is somewhat better.. Pt denies abdominal pain, passing lots of gas. Objective Last 8 Hrs Date Time Temp Pulse Resp B/P (MAP) Pulse Ox O2 Delivery O2 Flow Rate FiO2 01/04/18 08:10 Room Air 01/04/18 07:51 37.0 47 16 130/83 (99) 97 Room Air Physical Exam: GEN: WNWD, in no acute distress, alert and appropriate HEENT: NC/AT, normal sclerae, MMM, NGT in place to suction CARDIO: reg rate, S1/2 heard without m/g/r LUNGS: CTA bilaterally, no crackles, rales or wheezes, good diaphragmatic excursion ABD: soft, nontender, non-distended, no rebound or guarding, hypoactive BS EXTREMITY: RP and DP palpable 2+ bilat, no LE swelling or edema, extremities are warm and well-perfused NEURO: CN 2-12 grossly intact, no gross focal deficits. MUSC: 5/5 strength throughout, no gross focal deficits SKIN: warm and dry Laboratory Results: 01/03/18 08:51 01/03/18 08:51 Test 01/01/18 16:11 01/01/18 16:17 01/01/18 18:40 01/02/18 12:03 Immature Granulocyte % (Auto) 1.1 % White Blood Count 9.76 K/uL (4.8-10.8) Red Blood Count 3.89 M/uL (4.2-5.4) Hemoglobin 12.9 g/dL (12.0-16.0) Hematocrit 37.9 % (37-47) Mean Corpuscular Volume 97.4 fL (80-100) Mean Corpuscular Hemoglobin 33.2 pg (25-34) Mean Corpuscular Hemoglobin Concent 34.0 g/dl (32-36) Platelet Count 242 K/uL (130-400) Mean Platelet Volume 11.3 fL (7.4-10.4) Neutrophils (%) (Auto) 87.2 % Lymphocytes (%) (Auto) 8.5 % Monocytes (%) (Auto) 3.1 % Eosinophils (%) (Auto) 0.0 % Basophils (%) (Auto) 0.1 % Neutrophils # (Auto) 8.51 K/uL (1.4-6.5) Lymphocytes # (Auto) 0.83 K/uL (1.2-3.4) Monocytes # (Auto) 0.30 K/uL (0.11-0.59) Eosinophils # (Auto) 0.00 K/uL (0-0.5) Basophils # (Auto) 0.01 K/uL (0-0.2) Immature Granulocyte # (Auto) 0.11 K/uL (0.00-0.02) Erythrocyte Sedimentation Rate 23 mm/hr (0-21) C-Reactive Protein < 0.29 mg/dl (0-0.29) Urine Color YELLOW Urine Appearance CLEAR (CLEAR) Urine pH 6.5 (4.5-7.5) Urine Specific [place] 1.009 (1.000-1.030) Urine Protein NEG (NEG) Urine Glucose (UA) TRACE (NEG) Urine Ketones NEG (NEG) Urine Occult Blood NEG (NEG) Urine Nitrite NEG (NEG) Urine Bilirubin NEG (NEG) Urine Urobilinogen NEG (NEG) Urine Leukocyte Esterase NEG (NEG) Bedside Lactic Acid Venous 2.43 mmol/L (0.90-1.70) Lactic Acid Level 2.0 mmol/L (0.4-2.0) Test 01/02/18 18:23 01/03/18 08:51 Prothrombin Time 9.8 SECONDS (9.0-12.0) Prothromb Time International Ratio 0.9 (0.9-1.1) Red Blood Count 4.09 M/uL (4.2-5.4) Mean Corpuscular Volume 96.6 fL (80-100) Mean Corpuscular Hemoglobin 32.8 pg (25-34) Mean Corpuscular Hemoglobin Concent 33.9 g/dl (32-36) RDW Standard Deviation 46.3 fL (36.4-46.3) RDW Coefficient of Variation 13.2 % (11.5-14.5) Mean Platelet Volume 10.9 fL (7.4-10.4) Anion Gap 9.0 mmol/L (3-11) Est Creatinine Clear Calc Drug Dose 95.6 ml/min Estimated GFR () 118.7 Estimated GFR (Non- 102.4 BUN/Creatinine Ratio 15.2 (10-20) Calcium Level 9.2 mg/dl (8.5-10.1) Phosphorus Level 4.1 mg/dl (2.5-4.9) Magnesium Level 2.1 mg/dl (1.8-2.4) Assessment & Plan 52 yo F with Chron's Disease and recent hospitalization this month for SBO at another hospital presents with worsened abdominal pain and new SBO in setting of CD flare. Doing well on steroids and after receiving her Remicaide infusion. Clamped NGT with no worsening of pain or bloating-plan for removal of NGT with advancement of diet as tolerated. Pain in mouth from pulled teeth is somewhat better.. Pt denies abdominal pain, passing lots of gas. 1. SBO-recurrent, etiologies include but not limited to IBD flare, severe constipation, or adhesions or a combination. NGT pulled today, advance diet as tolerated. Likely DC to home if doing well tomorrow and tolerating solids. 2. Chron's ileitis-Remicaide infusion ordered per GI on 01/02 who recommends cont steroids and current management. 3. Depression/Bipolar disorder-holding PO meds while on bowel rest. Will restart once tolerating PO again. DVT proph-Lovenox. Full Code Dispo-uncertain at this time. Shanice Evangelista DO [facility] Hospitalist Consultants: GI-Dr. Alfonso Gen Surg-Dr. Calderón. Current Inpatient Medications: Current Inpatient Medications Medications (Trade) Dose Ordered Sig/Ida Route Start Time Stop Time Status Last Admin Dose Admin Ioversol (Optiray 320) 125 ml UD PRN IV 01/01/18 16:30 01/05/18 16:29 Ondansetron HCl (Zofran Inj) 4 mg Q6H PRN IV 01/01/18 21:00 01/31/18 20:59 Potassium Chloride/Dextrose/ Sod Cl 1,000 ml @ 125 mls/hr Q8H IV 01/01/18 22:00 01/31/18 21:59 01/04/18 12:14 125 MLS/HR Hydromorphone HCl (Dilaudid Inj) 0.5 mg Q8H PRN IV 01/01/18 21:45 01/15/18 21:44 Methylprednisolone Sodium Succinate 20 mg/Syringe 0.32 ml @ 1.5 mls/min BID IV 01/02/18 09:00 02/01/18 08:59 01/04/18 09:03 1.5 MLS/MIN Albuterol (Ventolin Hfa Inhaler) 2 puffs Q6H PRN INH 01/01/18 23:45 01/31/18 23:44 Lorazepam (Ativan Tab) 1 mg HS SL 01/02/18 21:00 02/01/18 20:59 01/03/18 21:11 1 MG Glycerin (Glycerin Adult Supp) 1 ea DAILY PRN SD 01/02/18 17:45 02/01/18 17:44 Enoxaparin Sodium (Lovenox Inj) 40 mg QAM SQ 01/03/18 09:00 02/02/18 08:59 Acetaminophen 1000 mg/Syringe 100 ml @ 400 mls/hr Q8H IV 01/03/18 21:00 01/31/18 21:44 01/04/18 13:13 400 MLS/HR Phenol (Chloraseptic 1.4% [place]) 2 sprays Q2H PRN MT 01/03/18 16:00 02/02/18 15:59
[2018-01-04] MEDS ORDERED: TRAMADOL HCL 50 MG TAB PO PRN (21:30)
[2018-01-04] MEDS ORDERED: ACETAMINOPHEN 500 MG TAB PO PRN (21:30)
[2018-01-04 23:12] VITALS: BP 109/75; PULSE 74; TEMP 37.1; O2SAT 97
[2018-01-05 07:06] VITALS: BP 133/90; PULSE 57; TEMP 36.5; O2SAT 98
[2018-01-05 08:37] VITALS: BP 133/90; PULSE 57; TEMP 36.5; O2SAT 98
[2018-01-05] MEDS: METHYLPREDNISOLONE IV 20 MG in SYRINGE 0 ML IV SCH (08:59)
[2018-01-05] MEDS: DIVALPROEX 250 MG EXTENDED REL TAB PO SCH ×2 (08:59→14:52)
[2018-01-05] MEDS ORDERED: VENLAFAXINE HCL XR 150 MG CAPXR PO SCH (09:00)
[2018-01-05] MEDS: ENOXAPARIN 40 MG/0.4 ML SYR SQ SCH (09:00)
[2018-01-05] MEDS ORDERED: SERTRALINE HCL 100 MG TAB PO SCH (09:00)
[2018-01-05] MEDS ORDERED: PRED10TA PO (12:59)
--- NOTE | 2018-01-05 13:15 | Discharge Summary ---
Discharge Summary Date of Service Jan 05, 2018. Discharge Summary Admission Date: Jan 01, 2018 at 20:50 Discharge Date: Jan 05, 2018 Discharge Disposition: Home Principal Diagnosis: Chron's Disease with flare acute SBO s/p NGT placement Procedures: NGT placement Vaccinations: None. Consultations: GI-Dr. Alfonso Gen Surg-Dr. Calderón. Pending Studies/Follow-Up: see instructions below. Medication Reconciliation New Medications: Prednisone (Prednisone) 10 Mg Tab 10 MG PO UD for 60 Days, #140 TAB Start 40mg PO daily x 7 days, then decrease by 5mg weekly until finished. Continued Medications: Albuterol Hfa (Ventolin Hfa) 200 Puffs/91680 Mcg Aers 2-4 PUFFS INH Q6H PRN for Shortness of Breath, INHALER Amitriptyline HCl (Amitriptyline HCl) 10 Mg Tab 10 MG PO HS Dicyclomine Hcl (Bentyl) 10 Mg Cap 10 MG PO TID Divalproex Sodium (Depakote Er) 250 Mg Tab 250 MG PO TID, TAB Estradiol (Estrace) 1 Mg Tab 1 MG PO UD, TAB TAKE 1 TAB DAILY FOR 21 DAYS, STOP FOR 7 DAYS, REPEAT Ferrous Sulfate (Iron) 325 Mg Tab 1 TAB PO DAILY Folic Acid (Folvite) 1 Mg Tab 1 MG PO DAILY, TAB Loperamide Hcl (Imodium) 2 Mg Cap 2 MG PO QID PRN for Diarrhea, CAP Loratadine (Claritin) 10 Mg Tab 10 MG PO DAILY PRN for Allergy Symptoms, TAB Lorazepam (Ativan) 1 Mg Tab 1 MG PO HS, TAB Omeprazole (Prilosec) 20 Mg Capcr 20 MG PO QAM, CAP Sertraline (Zoloft) 100 Mg Tab 100 MG PO BID, TAB Tramadol HCl (Tramadol HCl) 50 Mg Tab 25 MG PO Q8H PRN for severe pain for 7 Days, #10 TAB Trazodone Hcl (Trazodone) 100 Mg Tab 100-150 MG PO BID, TAB Venlafaxine Hcl (Venlafaxine Hcl Er) 150 Mg Tab 150 MG PO BID, TAB Discontinued Medications: Prednisone (Prednisone) 20 Mg Tab 40 MG PO UD TAPER Admission Information HPI (per Admitting provider): 52-year-old female followed by Dr. Parker for Family Medicine as well as CHIKI Pearce and Dr. Alfonso for Gastroenterology. History of Crohn's disease, most recently treated with infliximab and budesonide. Hospitalized in September with a bowel obstruction resolved with conservative management. Admitted to [facility] about 2 weeks ago with recurrent bowel obstruction. Exploratory laparotomy was discussed; the patient preferred not to proceed until she consulted further with her gastroenterologists. Her symptoms improved and she was discharged on 12/24/17. Since her discharge from [facility], she has experienced nausea and crampy abdominal pain. Abdominal pain is located mostly in the mid abdomen and does not radiate. It is associated with nausea, but no vomiting, diarrhea, melena, or hematochezia. Took dicyclomine and tramadol with some relief, but transient. Last bowel movement was 5 days prior to admission. . Physical Exam (per Admitting): General Appearance: WD/WN, no apparent distress Head: normocephalic, atraumatic Eyes: normal inspection, PERRL, EOMI, sclerae normal, + pertinent finding ( Conjunctivae normal) ENT: hearing grossly normal, + pertinent finding (nasogastric tube inserted in right naris; edentulous) Neck: supple, no adenopathy, thyroid normal, trachea midline Respiratory/Chest: lungs clear, no respiratory distress Cardiovascular: regular rate, rhythm, no edema, no gallop, no JVD, + systolic murmur (I/ systolic murmur at base) Abdomen/GI: + pertinent finding (quiet bowel sounds, slightly distended, soft, diffuse moderate tenderness without rebound or guarding; no palpable masses or hepatosplenomegaly) Extremities/Musculoskelatal: normal inspection, no calf tenderness Neurologic/Psych: 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 She had recently been discharged from [facility] 1 week prior for bowel obstruction she stated they wanted to do surgery to remove scar tissue while she was there but she refused this until she was able to talk to her technical communicator. Since she had been discharged she was having persistent abdominal cramping which was constant. She had not had more than 2 bowel movements in the prior 20 days. Initial vital signs revealed blood pressure 116/76 respiration 18 pulse 103 temp 37.2C with normal saturation on room air. Physical exam was remarkable for tenderness to palpation in the right upper quadrant and right mid abdomen rebound tenderness. Bowel sounds were positive 4 quadrants. Abdomen was soft and nondistended. CT scan of the abdomen and pelvis was with IV and oral contrast was ordered. In the ER she was hydrated with 1 L of normal saline solution and lactic acid was repeated following this and had improved significantly. CT did show evidence of a small bowel obstruction with his. NG tube was ordered. She was admitted to the hospital service. General surgery and gastroenterology were consulted. General surgery did not recommend surgical intervention and agreed with NG tube decompression. Gastroenterology also agreed and continued Solu-Medrol 20 mg IV twice daily Remicade infusion was ordered for the following day. She gradually tolerated sips of water and ice chips and NG tube was subsequently discontinued a couple of days later without issue. Abdominal pain was still somewhat present on exam on day of discharge but this was expected and greatly improved since admission. Otherwise physical exam was unremarkable at discharge. At time of discharge she was hemodynamically stable and afebrile and tolerating p.o. She was mentating and ambulating at baseline and was just and with close follow-up recommended by primary care physician. She was discharged on a long steroid taper per gastroenterology recommendations. She will follow-up with gastroenterology as an outpatient. Total time spent on discharge = 60 minutes This includes examination of the patient, discharge planning, medication reconciliation, and communication with other providers. Discharge Instructions [facility] [address] [place] [address] Discharge Medical Patient Name: Izzy Cruz Unit Number: [id number] Date of : 1965 Patient Status: Admitted Inpatient Attending Doctor: Shanice Evangelista DO DI: Medical v4 Discharge Instructions Date of Service Jan 05, 2018. Admission Reason for Admission: Bowel Obstruction Discharge Discharge Diagnosis / Problem: SBO, chron's flare Discharge Goals Goal(s): Decrease discomfort, Prevent Disease Progression Activity Recommendations Activity Limitations: per Instructions/Follow-up section . Instructions / Follow-Up Instructions / Follow-Up Please continue all medications as instructed. Dr. Alfonso has put you on a prednisone taper with the following schedule: Prednisone 40mg daily x 7 days, then 35mg daily x 7 days, then 30mg daily x 7 days, then 25mg daily x 7 days, then 20mg daily x 7 days, then 15mg daily x 7 days, then 10mg daily x 7 days, then 5mg daily x 7 days, then stop. You have a follow-up appointment with Dr. Jose Enrique Paul on Mon, 01/10 @ 0930 for follow-up from this hospitalization. Please follow-up with the GI clinic as instructed by their office. It was a pleasure taking care of you! Call if you have any questions or problems. You can reach a [facility] hospitalist on duty at [facility] 24 hours a day by calling [phone]. Take care of yourself. Shanice Evangelista, [facility] Diet Patient's current hospital diet: Regular Diet Discharge Diet Recommended Diet: Regular Diet Procedures Procedures Performed: NGT placement Pending Studies Studies pending at discharge: no Medical Emergencies . Who to Call and When: Medical Emergencies: If at any time you feel your situation is an emergency, please call 911 immediately. . Non-Emergent Contact Non-Emergency issues call your: Primary Care Provider, Tawer . . "Provider Documentation" section prepared by Shanice Evangelista. . VTE Core Measure Inpt VTE Proph given/why not?: Enoxaparin (Lovenox)SQ, SCD's Additional Copies To Kyung Parker M.D.; Jose Enrique Dudley M.D.
[2018-01-05 15:00] VITALS: BP 105/71; PULSE 78; TEMP 37; O2SAT 97
[2018-01-05] MEDS ORDERED: LORAZEPAM 1 MG TAB PO SCH (21:00)
== END 2018-01-05 17:30 | disposition home or self-care (01) | DRG 389 ==
LOC: C.EDB 14:41 → C.3E 20:50 → EDBEDREQSVC 20:55 → ENRESERV 21:00
PROVIDERS: ADMIT Hospitalist; ATTEND Hospitalist
DX: K56.600 Partial intestinal obstruction, unspecified as to cause (principal); K50.90 Crohn's disease, unspecified, without complications; E87.2 Acidosis; F32.9 Major depressive disorder, single episode, unspecified; R73.9 Hyperglycemia, unspecified; T38.0X5A Adverse effect of glucocorticoids and synthetic analogues, initial encounter; F17.200 Nicotine dependence, unspecified, uncomplicated; Z79.52 Long term (current) use of systemic steroids; Z79.899 Other long term (current) drug therapy; Z88.6 Allergy status to analgesic agent

== ENCOUNTER → 2018-01-01 | Outpatient (CLI) | payer OTHER ==
[~2018-01-01] MED LIST changes: +DICY10CA55 PO; +ESTR1 PO; +FERR1TAB23 PO; +FOLI1TAB8 PO; +PRD20 PO; +PRED10TA PO; +PRED20TA PO; +RANI150T85 PO; +ULT50X PO; -ZNTT/150 PO
--- NOTE | 2018-01-01 13:48 | DIAGNOSTIC IMAGING REPORT ---
ABDOMEN 2VIEW W/PA CHEST RTN CLINICAL HISTORY: K50.00 Terminal [id number] Crohn's [id number] Ileal stenosis COMPARISON STUDY: Supine abdomen dated 07/07/2015 FINDINGS: Erect chest reveals chronic right-sided rib deformities. There is no focal pulmonary consolidation. There is no free intraperitoneal air. Erect and supine views the abdomen and reveal no abnormally dilated loops of large or small bowel. There are no transition zones indicate bowel obstruction. Bowel loops within the left midabdomen demonstrate equivocal bowel wall thickening/edema. IMPRESSION: 1. No evidence of bowel obstruction. No evidence of free air 2. Equivocal bowel wall thickening/edema involving left mid abdominal small bowel loops Electronically signed by: Kev Potter M.D. 01/01/2018 1:46 PM Dictated Date/Time: 01/01/2018 1:44 PM
[2018-01-01 14:55] LABS: BASO % 0.1 %; BASO ABS # 0.01 K/uL (0-0.2); HEMATOCRIT 40.1 % (37-47); HEMOGLOBIN 13.3 g/dL (12.0-16.0); IG# 0.16 K/uL (0.00-0.02); LYMPH % 11.1 %; LYMPH ABS # 1.36 K/uL (1.2-3.4); MEAN CELL VOLUME 97.8 fL (80-100); MEAN CORPUSCULAR HEMOGLOBIN 32.4 pg (25-34); MEAN CORPUSCULAR HGB CONC 33.2 g/dl (32-36); MEAN PLATELET VOLUME 11.9 fL (7.4-10.4); MONO % 5.3 %; MONO ABS # 0.65 K/uL (0.11-0.59); NEUT % 82.2 %; NEUT ABS # 10.12 K/uL (1.4-6.5); PLATELET COUNT 262 K/uL (130-400); RED CELL DISTRIBUTION WIDTH SD 46.2 fL (36.4-46.3)
[2018-01-01 15:20] LABS: ALBUMIN 3.1 gm/dl (3.4-5.0); ALT/SGPT 20 U/L (12-78); AST/SGOT 6 U/L (15-37); BLOOD UREA NITROGEN 19 mg/dl (7-18); CARBON DIOXIDE 26 mmol/L (21-32); CREATININE 0.77 mg/dl (0.60-1.20); GLUCOSE 113 mg/dl (70-99); POTASSIUM 3.9 mmol/L (3.5-5.1); SODIUM 137 mmol/L (136-145)
[2018-01-01 15:23] LABS: ALKALINE PHOSPHATASE 115 U/L (45-117); TOTAL PROTEIN 7.5 gm/dl (6.4-8.2)
== END ==
LOC: C.RAD 12:58
PROVIDERS: ATTEND Physician Assistant
DX: K56.699 Other intestinal obstruction unspecified as to partial versus complete obstruction (principal); K50.90 Crohn's disease, unspecified, without complications; Z87.19 Personal history of other diseases of the digestive system

== ENCOUNTER → 2018-02-21 | Outpatient (CLI) | payer OTHER ==
[~2018-02-21] MED LIST changes: +DICY10CA55 PO; -PRD20 PO; +PRED10TA PO; -RANI150T85 PO
[2018-02-21 12:44] LABS: BASO % 0.1 %; BASO ABS # 0.01 K/uL (0-0.2); HEMATOCRIT 42.9 % (37-47); IG# 0.02 K/uL (0.00-0.02); LYMPH % 35.5 %; LYMPH ABS # 2.39 K/uL (1.2-3.4); MEAN CELL VOLUME 98.2 fL (80-100); MEAN CORPUSCULAR HGB CONC 32.6 g/dl (32-36); MEAN PLATELET VOLUME 10.9 fL (7.4-10.4); MONO % 10.7 %; MONO ABS # 0.72 K/uL (0.11-0.59); NEUT % 53.4 %; PLATELET COUNT 240 K/uL (130-400); RED CELL DISTRIBUTION WIDTH CV 13.4 % (11.5-14.5); RED CELL DISTRIBUTION WIDTH SD 48.1 fL (36.4-46.3); WHITE BLOOD COUNT 6.74 K/uL (4.8-10.8)
[2018-02-21 12:53] LABS: ALBUMIN 3.4 gm/dl (3.4-5.0); ALT/SGPT 16 U/L (12-78); AST/SGOT 10 U/L (15-37); BLOOD UREA NITROGEN 8 mg/dl (7-18); CALCIUM 9.1 mg/dl (8.5-10.1); CARBON DIOXIDE 26 mmol/L (21-32); CREATININE 0.84 mg/dl (0.60-1.20); GLUCOSE 113 mg/dl (70-99); SODIUM 136 mmol/L (136-145)
[2018-02-21 12:55] LABS: TOTAL PROTEIN 7.8 gm/dl (6.4-8.2)
[2018-02-21 12:56] LABS: ALKALINE PHOSPHATASE 109 U/L (45-117)
== END | disposition home or self-care (01) ==
LOC: C.LABPBG 09:01
PROVIDERS: ATTEND Registered Nurse
DX: K50.90 Crohn's disease, unspecified, without complications (principal)

== ENCOUNTER → 2018-02-27 | Outpatient (CLI) | payer OTHER ==
[2018-02-27 13:07] LABS: BLOOD UREA NITROGEN 10 mg/dl (7-18); CALCIUM 8.9 mg/dl (8.5-10.1); CARBON DIOXIDE 22 mmol/L (21-32); CREATININE 0.87 mg/dl (0.60-1.20); GLUCOSE 148 mg/dl (70-99); POTASSIUM 3.5 mmol/L (3.5-5.1); SODIUM 134 mmol/L (136-145)
== END | disposition home or self-care (01) ==
LOC: C.LAB 11:43
PROVIDERS: ATTEND Registered Nurse
DX: E87.6 Hypokalemia (principal)